=== PATIENT | male | born 1940 | race Caucasian/White ===

== ENCOUNTER 2021-07-18 12:34 | Inpatient (IN) ==
[2021-07-18] MEDS ORDERED: SODIUM CHLORIDE 0.9% 1000ML 1,000 ML IV SCH ×2 (12:49→16:25)
--- NOTE | 2021-07-18 13:06 | XRay Report ---
SINGLE VIEW CHEST CLINICAL HISTORY: Cardiac arrest. Intubation. FINDINGS: An AP, portable, supine chest radiograph is obtained. No prior studies are available for co mparison at the time of dictation. The examination is degraded by portable technique and patient rota tion. A cardiac pad projects over the right upper chest. A left subclavian central venous catheter grover s been placed. The tip projects over the cavoatrial junction. An endotracheal tube has been placed. T he tip projects approximately 3 cm above the carson. The heart is enlarged noting atherosclerotic ashlyn cification of the thoracic aorta. The pulmonary vasculature is noncongested. Coronary artery stents a re suggested.. There is mild bibasilar atelectasis. No airspace consolidation or large pleural effusi on is identified. No pneumothorax is seen. The skeletal structures are osteopenic. The bony thorax is grossly intact. IMPRESSION: 1. Line and tube placement as above. 2. No pneumothorax is seen post procedure. 3. Cardiomegaly without radiographic evidence of congestive failure. 4. No airspace consolidation or large pleural effusion is identified. ACT 112: Negative or not required by law. Electronically signed by: Ángel Bassett M.D. 07/18/2021 1:04 PM
[2021-07-18] MEDS: Standard 16mcg/mL; 4 MG in 250 mL for HYPOTENSION IV SCH ×6 (13:15→23:51)
[2021-07-18 13:19] LABS: Hematocrit (blood only) 42.2 % (42-52); Hemoglobin 13.3 g/dL (14.0-18.0); Mean Corpuscular Hemoglobin 31.3 pg (25-34); Mean Corpuscular Hgb Conc 31.5 g/dL (32-36); Mean Corpuscular Volume 99.3 fL (80-100); Mean Platelet Volume 10.4 fL (7.4-10.4); Platelet Count 183 K/uL (130-400); RDW Coefficient of Variation 15.9 % (11.5-14.5); RDW Standard Deviation 58.2 fL (36.4-46.3); Red Blood Count 4.25 M/uL (4.7-6.1); White Blood Count 12.09 K/uL (4.8-10.8)
--- NOTE | 2021-07-18 13:21 | Procedure Note ---
Procedure Note Date of Service July 18, 2021 Note Procedure date: Noted above Procedure: Central venous access Pre-procedure indication: Need for vasoactive medication administration Post-procedure Diagnosis: same as above Prior to Procedure: Informed Consent: CODE BLUE emergent consent implied Attending Staff: Fartun Caballero DO Resident/APC: Not applicable Skin Prep: Chlorhexidine Anesthesia: 4 mL 1% lidocaine without epinephrine The identity of the patient was confirmed and a bedside time out was performed. Description of Procedure: After sterile prep and sterile drape utilizing standard sterile technique the superficial skin of the left subclavian area was anesthetized. The target vessel was identified and entered with an 18-gauge needle. Dark venous blood return was noted. A guidewire was inserted through the needle and into the vessel. The needle was withdrawn and a skin mustapha was made. A tissue dilator was advanced via Seldinger technique and removed. A triple lumen catheter was inserted via Seldinger technique and the guidewire removed. All ports ty and flushed easily. A Biopatch was placed, and the catheter was secured via Commercial securement device. A sterile dressing was then applied. Complications: None Estimated blood loss: Trace Patient tolerated the procedure well. Coding CPT Codes Tubes, Drains, and Vasc Access - Tubes, Drains, and Vasc Access: [id number] Insertion Of Non-tunneled Catheter Age 6 Yrs> ([id number]) [facility] [place] Procedure Codes (Charges) Tubes, Drains, and Vasc Access Procedure 1: Tubes, Drains, and Vasc Access: [id number] Insertion Of Non-tunneled Catheter Age 6 Yrs>
--- NOTE | 2021-07-18 13:23 | Procedure Note ---
Procedure Note Date of Service July 18, 2021 Note Procedure date: Noted above Procedure: Femoral artery cannulation Pre-procedure Diagnosis: Need for invasive monitoring, hypotension/frequent blood draws Post-procedure Diagnosis: same as above Prior to Procedure: Informed Consent: RAJI CERVANTES emergent consent implied Attending Staff: Fartun Caballero DO Skin Prep: Chlorhexidine The identity of the patient was confirmed and a bedside time out was performed. Description of Procedure: After sterile prep and sterile drape utilizing standard sterile technique the superficial skin of the right femoral artery was anesthetized. The target artery was identified via dynamic ultrasound guidance and entered with a 20-gauge arrow Angiocath. Pulsatile bright red blood return was noted. Via modified Seldinger technique the self-contained guidewire was advanced and the Angiocath advanced over the guidewire. The guidewire was removed and brisk arterial blood return was noted. The pressure monitor was connected, and the arterial line was secured via silk suture. A sterile dressin g was then applied. Complications: None Estimated blood loss: Trace Patient tolerated the procedure well. Coding CPT Codes Tubes, Drains, and Vasc Access - Tubes, Drains, and Vasc Access: [id number] Place Catheter In Artery ([id number]) [facility] [place] Procedure Codes (Charges) Tubes, Drains, and Vasc Access Procedure 1: Tubes, Drains, and Vasc Access: [id number] Place Catheter In Artery
[2021-07-18 13:31] LABS: iSTAT Arterial Blood Gas HCO3 23 meg/L (19-24); iSTAT Arterial Blood Gas pCO2 54 mmHg (35-46); iSTAT Arterial Blood Gas pH 7.24 (7.35-7.45); iSTAT Arterial Blood Gas pO2 80 mmHg (80-95); iSTAT Carbon Dioxide 24 mmol/L (24-31)
--- NOTE | 2021-07-18 13:34 | Critical Care Consultation ---
Date of Consultation July 18, 2021 Assessment & Plan (1) Cardiac arrest: Reason Critically Ill: 80-year-old male with significant past medical history for coronary artery disease on antiplatelet and Plavix medication who presents after cardiac arrest and fall PLAN: Neuro: Patient unresponsive will strongly consider therapeutic hypothermia -Therapeutic hypothermia to proceed as no major bleeding seen on CT scan Maintain cervical collar until CT scan Resp: Respiratory failure - Already decreased FiO2 to 30% minimize hyperoxia Anterior rib fractures -No pneumothorax seen Bilateral pleural effusions -Likely reactionary to rib fractures secondary to CPR CV: Coronary artery disease Cardiac arrest - Interventional cardiology aware plan to take to cardiac Golf Cart Mechanic Fluids/Renal: Acute respiratory acidosis - Follow BMP ID: Afebrile - No indication for antibiotics at this time GI/Nutrition: Place OG tube - Consider trickle tube feeds Heme: Probable baseline anemia DVT prophylaxis: We will consider DVT prophylaxis after CT scan and cardiac Golf Cart Mechanic Endocrine: ICU hyperglycemia protocol Musculoskeletal: C2 fracture type III -Orthopedic spine consult -Spine precautions -Cervical collar at all times Vascular access: Left subclavian CVL, right femoral arterial line Code Status: Full Disposition: Critical Care Unit (2) CAD (coronary artery disease): (3) Facial laceration: (4) Fall (on) (from) other stairs and steps, initial encounter: (5) Closed fracture of C2 vertebra: (6) Ribs, multiple fractures: Supervising Physician Co-Signing Physician Notes I have personally spent 90 minutes of critical care time in the direct management of this patient. This is a life/limb threatening event. This includes time spent evaluating patient, direct bedside care, chart review, placing orders, interpretation of diagnostic studies, discussion with consultants, patient, and/or family members regarding treatment decisions, as well as other required patient management activities. This time is exclusive of all separately billable procedures, and teaching time and separate from and in addition to any other critical care service time. History of Present Illness Reason for Consultation: CODE BLUE cardiac arrest Requesting Physician: Alexia MERLOS History of Present Illness Patient is a 80-year-old male history is obtained from EMS. Patient was walking downstairs when his heard a fall. EMS was contacted found him at the bottom of the steps he was found to be in asystole given 4 rounds of epinephrine and approximately 30 minutes of CPR. He had return of spontaneous circulation and has been bradycardic since that time. In the emergency department he had loss of pulse/PEA was given 1 mg epinephrine and approximately 2 minutes worth of CPR and had return of spontaneous circulation was started on epinephrine infusion. EKG was obtained concerns for active cardiac ischemia/posterior wall [place] bedside limited ultrasound demonstrated poor contractility of both ventricles per my interpretation. Central venous access was obtained and a femoral arterial line for invasive monitoring was also obtained. Patient was placed in a cervical collar and sent for noncontrast CT of the head and neck. Review of Systems Review of Systems: Unobtainable due to endotracheal tube Physical Exam Physical Exam: General: Alert. nontoxic. GCS 3 T Skin: Warm, dry, supraorbital laceration Head: Atraumatic laceration to right supraorbital area dried blood over scalp Ears, nose, mouth and throat: airway patent obscured by endotracheal tube Cardiovascular: Normal peripheral perfusion bradycardic Rhythm Respiratory: no respiratory distress ventilator settings reviewed quickly dropped to 30% FiO2 Gastrointestinal: Non distended Musculoskeletal: No deformity Results & Data Results & Data ([facility]) Diagnostic Findings I reviewed the chest x-ray, no pneumothorax CVL appears to be in adequate position endotracheal tube 1 cm above the carson ECG Additional Comments: Cardiac arrest, sinus bradycardia concern for posterior wall [place] Coding Level of Care Code Critical Care ea addt'l 30 min Diagnoses Cardiac arrest I46.9 CAD (coronary artery disease) I25.10 Facial laceration S01.81XA Fall (on) (from) other stairs and steps, initial encounter W10.8XXA Closed fracture of C2 vertebra S12.100A Ribs, multiple fractures S22.49XA
[2021-07-18 13:44] LABS: Echinocytes 1+
[2021-07-18 13:46] LABS: ANC (manual) 6.65 K/uL (1.4-6.5); Monocytes # (manual) 0.12 K/uL (0.11-0.59); Myelocytes # (manual) 0.12 K/uL (0-0); Neutrophils # (manual) 6.65 K/uL (1.4-6.5)
[2021-07-18 13:47] LABS: Troponin I 0.03 ng/ml (0-0.04)
--- NOTE | 2021-07-18 13:49 | CT Scan Report ---
CT SCAN OF THE BRAIN WITHOUT IV CONTRAST CLINICAL HISTORY: Head injury. Trauma. COMPARISON STUDY: No priors. TECHNIQUE: Unenhanced axial CT scan of the brain is performed from the vertex to the skull base. A do se lowering technique was utilized adhering to the principles of ALARA. FINDINGS: An endotracheal tube is noted on the deputy sheriff/investigator tomogram. Brain parenchyma: There is age-related change noting minimal microangiopathic disease. There is no h emorrhage, mass effect, or evidence of acute territorial ischemia by CT criteria. Mi-white matter d ifferentiation is preserved. No extra-axial fluid collection is seen. Ventricles, sulci, cisterns: Prominent secondary to involutional change. Intracranial vasculature: There is atherosclerotic calcification of the cavernous carotid interverteb ral arteries. Calvarium: No depressed calvarial fracture is identified. Soft tissues: There is a frontal scalp hematoma/laceration. Sinuses and mastoids: There is trace mucosal thickening within the maxillary antra and the frontal si nuses. Moderate mucosal thickening is noted within the ethmoid sinuses. Air-fluid levels seen within the posterior ethmoid sinuses and the sphenoid sinuses. The mastoid air cells are well pneumatized. Orbits: The bony orbits are grossly intact. IMPRESSION: 1. There is no hemorrhage, mass effect, or evidence of acute territorial ischemia by CT criteria. 2. Right frontal scalp hematoma. 3. Paranasal sinus disease as above. ACT 112: Negative or not required by law. Electronically signed by: Ángel Bassett M.D. 07/18/2021 1:48 PM
--- NOTE | 2021-07-18 14:01 | History & Physical Report ---
Date of Service July 18, 2021 Assessment & Plan (1) Cardiac arrest: Plan: Patient had a fall from the stairs at home and found unresponsive. S/P 2 rounds of EPI on the field, approximately 30 minutes of CPR. SS/P ROSC, however required another dose of epinephrine. As no response, hypothermia started. On mechanical ventilation, and going for a cardiac cath D/W animal stunner (2) Closed fracture of C2 vertebra: Plan: noticed on imaging. maintain on cervical collar (3) CAD (coronary artery disease): Plan: going to lab[facility] [place]. Dr. Estevez is aware (4) Ribs, multiple fractures: Plan: secondary to fall (5) Facial laceration: Plan: treated in ED. History of Present Illness Chief Complaint: fall Primary Care Provider: KIRA PCP 80 yo male is intubated after sustainging a fall from stair case. heard the fall and found patient to have no pulse, called for help and began CPR with the help of the neighbor. Once EMS arrived, patient remained in asystole, and CPR was continued and patient required 2 rounds of epinephrine. Patient was then found to have PEA, and then had a return of spontaneous circulation. When patient arrived to the ED, patient was bradycardic and then loss his pulse. Reuired CPR and another dose of EP. Patient remained unresponsive, without sedation. Consulted Metalworking Specialist, Head CT, and consulted cardio for Dr. Estevez. Allergies Allergy/AdvReac Type Severity Reaction Status Date / Time No Known Allergies Allergy Unverified 07/18/21 16:14 Home Medications Medication Instructions Recorded Confirmed Type aspirin 07/18/21 History clopidogrel 75 mg tablet (Plavix) 75 mg 07/18/21 History Past Med/Surg History Medical History CAD (coronary artery disease) Surgical History Stented coronary artery Social History Smoking Status: Never smoker Hx Alcohol Use: No Hx Substance Use: No Preferred Language: Occitan Communication Ability: Unable Hearing Ability: Use of Hearing Aid Child Development Professor Required: No Beliefs That Will Affect Care: None marital status: Current Living Situation: Spouse current occupational status: retired Feels Safe at Home: Yes Assistive Devices: Hearing Aid - Left and Hearing Aid - Right Review of Systems Review of Systems: Unobtainable due to cognitive status Physical Exam Constitutional: nonresponsive, intubated. Eyes: right supraorbital laceration ENMT: external ear and nose normal, oropharynx normal Neck: trachea midline, no thyromegaly Respiratory: normal respiratory effort, lungs clear to auscultation Cardiovascular: RRR, no murmur, no edema Gastrointestinal (Abdomen): normal bowel sounds, soft, nontender, no hepat osplenomegaly Neurologic: PERRL, EOMI, accommodation nl, no face palsy, no dysarthria Psychiatric: sedated Results & Data Results & Data ([facility]) Vital Signs (Past 12 Hours) Vital Signs Pulse Resp Pulse Ox 07/18/21 12:58 47 L 18 98 PG Care Time/CCT Total # of Minutes Spent Total Time Spent with Patient: Total time spent is greater than 50% in coordination of care (as documented) at patient's floor/unit and/or counseling patient: Coding Level of Care Code 12416 Initial Inpt Care Lvl 3 Diagnoses Cardiac arrest I46.9 Closed fracture of C2 vertebra S12.100A CAD (coronary artery disease) I25.10 Ribs, multiple fractures S22.49XA Facial laceration S01.81XA
[2021-07-18] MEDS ORDERED: fentaNYL citrate 100 MCG/2 ML VIAL ONE (14:07)
[2021-07-18] MEDS ORDERED: niCARdipine HCL INJ 2.5 MG/ML 10 ML AMP ONE (14:07)
[2021-07-18] MEDS ORDERED: HEPARIN (PORCINE) 1000 UNIT/ML 10 ML (CATH LAB USE ONLY) ONE (14:07)
--- NOTE | 2021-07-18 14:07 | CT Scan Report ---
CT SCAN OF THE CERVICAL SPINE CLINICAL HISTORY: Trauma COMPARISON STUDY: No priors. TECHNIQUE: CT scan of the cervical spine is performed from the skull base to the upper thoracic spine . Images are reviewed in the axial, sagittal, and coronal planes. IV contrast was not administered fo r this examination. A dose lowering technique was utilized adhering to the principles of ALARA. CT DOSE: 1243.10 mGy.cm FINDINGS: Skeletal structures: The skeletal structures are osteopenic. There is a nondisplaced type III fractur e through the base of the odontoid process. This involves the anterior cortex at the base of the odon toid and extends obliquely to the posterior cortex of the mid vertebral body. No additional fracture is seen involving the cervical spine. There is no subluxation. Vertebral body height and alignment ar e maintained. Small anterior osteophytes are seen throughout. C1 is intact. The atlantoaxial articula tion is preserved noting productive degenerative change. The spinous processes appear intact. There i s moderate multilevel cervical spondylosis. Uncovertebral and facet arthropathy contribute to neural foraminal stenosis at several levels. Intervertebral discs: There is mild multilevel degenerative disc space narrowing, greatest at C3-C4. Central canal: Grossly patent. Soft tissues: The prevertebral and paraspinous soft tissues are within normal limits. There is athero sclerotic calcification of the carotid bulbs. The saphenous catheter is noted at the left thoracic in let. The thyroid gland is enlarged and heterogeneous. Layering fluid is noted in the pharynx. Calvarium: The visualized calvarium at the skull base appears intact. Brain parenchyma: Partially visualized brain parenchyma at the skull base is within normal limits. Sinuses and mastoids: There is fluid within the maxillary and sphenoid sinuses. The mastoid air cells are well pneumatized. Lung apices: An endotracheal tube is in place. No apical pneumothorax is identified. Upper lobe lung parenchyma is clear as imaged. IMPRESSION: 1. There is a nondisplaced type III fracture through the base of the odontoid process as detailed abo ve. 2. No additional fracture is seen involving the cervical spine. There is no subluxation. 3. Osteopenia and spondylotic change as above. Findings were communicated to Dr. Caballero at the time of interpretation. ACT 112: Negative or not required by law. Electronically signed by: Ángel Bassett M.D. 07/18/2021 2:06 PM
[2021-07-18] MEDS ORDERED: NITROGLYCERIN/D5W 100MCG/ML 20ML SYR ONE (14:08)
[2021-07-18] MEDS ORDERED: MIDAZOLAM HCL 1 MG/ML 2ML VIAL ONE (14:08)
--- NOTE | 2021-07-18 14:14 | CT Scan Report ---
CT SCAN OF THE FACIAL BONES WITHOUT IV CONTRAST CLINICAL HISTORY: Trauma. COMPARISON STUDY: CT scans of the brain and cervical spine performed concurrently on 07/18/2021. TECHNIQUE: High-resolution CT scan of the facial bones is performed. Images are reviewed in the axia l, sagittal, and coronal planes. IV contrast was not administered for this examination. A dose lower ing technique was utilized adhering to the principles of ALARA. CT DOSE: 2031.87 mGy.cm FINDINGS: The skeletal structures are osteopenic. There is no evidence of facial bone fracture. The b tano orbits are intact and the orbital contents are within normal limits. The zygomatic arches, nasal bones, and pterygoid plates are preserved. The maxilla and mandible are intact. The temporomandibular joints are maintained. There is hyperostosis of the maxilla and mandible. There are large periapical lucencies involving a left maxillary incisor and a left maxillary molar. There is a small periapical lucency involving the left mandibular canine. There are no layering blood products within the parana ismael sinuses. There is trace mucosal thickening and trace fluid within the maxillary antra. Small air- fluid levels are also seen within the posterior ethmoid sinuses and the sphenoid sinuses. There is mo derate mucosal thickening throughout the ethmoid sinuses, and trace mucosal thickening in the frontal sinuses. A 12 mm osteoma is noted in the right frontal sinus. The visualized calvarium appears intac t. There is a nondisplaced type III fracture through the base of the odontoid process. Partially imag ed brain parenchyma is within normal limits. An endotracheal tube is in place. There is a large right frontal scalp hematoma/laceration. Layering fluid is noted throughout the pharynx. IMPRESSION: 1. There is no evidence of facial bone fracture. 2. There is a nondisplaced type III fracture through the base of the odontoid process. 4. Right frontal scalp hematoma. ACT 112: Negative or not required by law. Electronically signed by: Ángel Bassett M.D. 07/18/2021 2:12 PM
[2021-07-18 14:22] LABS: Alanine Aminotransferase 250 U/L (7-52); Albumin Globulin Ratio 1.2 (0.9-2); Albumin Level 3.2 gm/dl (3.4-5.0); Alkaline Phosphatase 60 U/L (34-104); Anion Gap 18 (3-11); Aspartate Aminotransferase 218 U/L (13-39); BUN Creatinine Ratio 17.3 (10-20); Bilirubin,Total 0.5 mg/dl (0.2-1.0); Blood Urea Nitrogen 30 mg/dl (6-23); Carbon Dioxide 23 mmol/L (21-32); Chloride 102 mmol/L (98-107); Est GFR (African American) 42.6 ml/min; Est GFR (Non-African American) 36.7 ml/min; Globulin 2.6 gm/dl (2.5-4.0); Glucose 401 mg/dl (70-99(Fasting)); Potassium 3.4 mmol/L (3.5-5.1); Sodium 143 mmol/L (136-145); Total Protein 5.8 gm/dl (6.0-8.3)
--- NOTE | 2021-07-18 14:33 | CT Scan Report ---
CT SCAN OF THE CHEST, ABDOMEN, AND PELVIS WITHOUT IV CONTRAST CLINICAL HISTORY: Trauma. COMPARISON STUDY: Chest x-ray dated 07/18/2021. TECHNIQUE: Unenhanced CT scan of the chest, abdomen, and pelvis was performed from the thoracic inlet to the proximal femora. Images are reviewed in the axial, sagittal, and coronal planes. IV contrast was not administered for this examination. Note that the examination is suboptimal without IV contras t in the setting of trauma. The Examination is also degraded by motion artifact, and by streak artifa ct from the arms which could not be elevated above the chest or abdomen. A dose lowering technique wa s utilized adhering to the principles of ALARA. FINDINGS: CHEST: Thyroid: The thyroid gland is enlarged and heterogeneous. Thoracic aorta: There is atherosclerotic calcification of the thoracic aorta, which is normal in eulalia marcello and demonstrates standard 3-vessel arch anatomy. Heart: A left subclavian central venous catheter is in place. The heart is enlarged and without peric ardial effusion. The coronary arteries are densely calcified. The main pulmonary arteries are mildly dilated suggesting pulmonary artery hypertension. Lungs and pleural spaces: An endotracheal tube terminates above the carson. Evaluation of the lung pa renchyma is degraded by motion artifact. There are trace pleural effusions with dependent consolidati on. Minimal secretions are noted in the right mainstem bronchus. Minimal patchy groundglass opacities are seen in the right upper lobe (axial image #66). Mediastinum: There is no mediastinal hematoma or lymphadenopathy. Jacklyn: Not well assessed without IV contrast. Axillae: There is no axillary lymphadenopathy. Bony thorax: The skeletal structures are osteopenic. There are acute right anterior 3rd through 6th r ib fractures. The 4th rib fracture is mildly displaced. There are acute nondisplaced left anterior 3r d through 7th rib fractures. Degenerative change and hyperkyphosis is noted in the thoracic spine. No lytic or blastic lesions are identified. ABDOMEN AND PELVIS: Liver: The unenhanced liver is normal in size, contour, and attenuation. There is no intra- or extrah epatic biliary ductal dilatation. Gallbladder: Unremarkable. Spleen: Normal in size and attenuation. Pancreas: Unremarkable. Adrenal glands: Unremarkable. Kidneys: The unenhanced kidneys demonstrate cortical atrophy and are without hydronephrosis. There ar e numerous (at least 10) punctate nonobstructing left renal calculi. Tiny punctate calculi are also n oted in the left kidney. Abdominal vasculature: The abdominal aorta is normal in course and caliber noting advanced atheroscle rotic calcification. Bowel: Moderate fecal retention is seen throughout the colon. No high-grade bowel obstruction is iden tified. There are numerous fluid-filled loops of small bowel which may represent ileus. The appendix is not visualized. Peritoneum: There is no intraperitoneal free air or abdominal ascites. There is a large fat-containin g umbilical hernia. Lymphadenopathy: None. Pelvic viscera: The prostate gland is enlarged and heterogeneous. The bladder wall appears thickened and trabeculated indicating chronic outlet obstruction. A large left inguinal hernia contains a nonob structed segment of the sigmoid colon. Skeletal structures: The skeletal structures are osteopenic. The lumbosacral spine, bony pelvis, and proximal femora appear intact. No lytic or blastic lesions are seen. IMPRESSION: 1. Suboptimal examination without IV contrast. There is also streak and motion artifact. 2. There are numerous acute bilateral anterior rib fractures. 3. No additional fracture is identified. 4. No pneumothorax is seen. 5. There are trace pleural effusions with dependent consolidation. This likely represents atelectasis and clinical correlation will be required. 6. There are faint groundglass opacities in the right upper lobe. This could represent a mild pneumon itis, aspiration, or less likely a tiny contusion. 7. Cardiomegaly. 8. There is no evidence of solid organ injury in the abdomen or pelvis on this unenhanced examination . 9. There is a large left inguinal hernia which contains a nonobstructed segment of the sigmoid colon. 10. There are numerous tiny bilateral nonobstructing renal calculi. 11. The small bowel loops are mildly distended and fluid-filled, likely representing ileus. There is no transition point or evidence of high-grade obstruction. 12. Additional findings as above. ACT 112: Negative or not required by law. Electronically signed by: Ángel Bassett M.D. 07/18/2021 2:31 PM
[2021-07-18] MEDS ORDERED: EPINEPHrine INJ 1 MG/ML AMP ONE ×4 (14:38→15:12)
[2021-07-18 15:17] LABS: INR 1.1 (0.9-1.1); Partial Thromboplastin Ratio 0.9; Partial Thromboplastin Time 22.5 Seconds (21.0-31.0); Prothrombin Time 11.3 Seconds (9.0-12.0)
--- NOTE | 2021-07-18 15:50 | Cardiology Consultation ---
Date of Consultation July 18, 2021 Assessment & Plan (1) Cardiac arrest: Patient here after out of hospital cardiac arrest, PEA now with ROSC post prolonged resuscitation. Initial ECG with subtle ST elevation in 1, aVL and deep inferior lateral ST depressions. We will proceed with cardiac catheterization to evaluate for acute disease potentially triggering presenting event or impacting current cardiac function. Plan is for targeted temperature management and will place cooling catheter. With prolonged bradycardia, asystole we will also place temporary pacer. Discussed risks, benefits, alternatives of procedure with patient's family and they are agreeable with proceeding. Further recommendations pending findings of coronary angiography. History of Present Illness History of Present Illness 80-year-old man here with after out of hospital arrest. Patient seen urgently after stabilized in the ED. Patient reportedly with long history of coronary artery disease and with reportedly 7 prior stents. Last maybe 5 years ago at [facility]. Reportedly has borderline diabetes as well. Per has been usual state of health this afternoon when she heard him walking on the steps and sometime later noted he had fallen and was unresponsive. CPR began by , neighbor until EMS where noted to be in asystole. Had ROSC after 30 minutes of CPR, 4 rounds of epi. In the ED bradycardic to 50s before again had PEA arrest and given additional 1 of epi, 2 minutes of CPR before ROSC. Initial ECG showed junctional bradycardia with subtle lateral ST elevations in [address] depressions inferiorly and across precordium. Initial troponin 0.03. At time of my evaluation patient in sinus rhythm with heart rates in the 70s on 0.[address] scan from head to pelvis notable for no intracranial hemorrhage but C2 spine fracture. Patient History Social History Smoking Status: Unknown if ever smoked Preferred Language: [place] Feels Safe at Home: Yes Review of Systems Review of Systems: Unobtainable due to endotracheal tube and Unobtainable due to reduced consciousness Physical Exam Physical Exam: General: Intubated, unresponsive HEENT: Sclerae anicteric, pupils fixed Lungs: Clear anteriorly Cardiac: Regular rate and rhythm, no murmurs. Vascular: 2+ radial Abdomen: Soft Extremities: No edema Neuro: Unresponsive to painful stimuli Results & Data ([facility]) Vital Signs (Past 12 Hours) Vital Signs Pulse Resp BP Pulse Ox 07/18/21 14:25 73 24 93 07/18/21 14:20 72 24 92 07/18/21 14:15 75 24 115/52 L 92 07/18/21 14:10 78 24 119/56 L 93 07/18/21 14:05 80 24 121/60 93 07/18/21 14:00 83 24 124/61 93 07/18/21 13:55 86 24 130/60 93 07/18/21 13:50 87 24 128/60 93 07/18/21 13:49 88 24 93 07/18/21 13:41 88 24 93 07/18/21 13:25 24 07/18/21 13:20 96 H 24 110/54 L 93 07/18/21 13:15 93 H 23 102/48 L 94 07/18/21 13:10 99 H 25 H 117/54 L 95 07/18/21 13:05 74 19 96/43 L 96 07/18/21 13:02 61 20 63/34 L 100 07/18/21 13:00 61 18 65/36 L 96 07/18/21 12:59 60 18 66/37 L 96 07/18/21 12:58 47 L 18 98 07/18/21 12:55 86 18 07/18/21 12:50 101 H 0 L 167/88 H 98 07/18/21 12:45 48 L 18 07/18/21 12:40 51 L 18 PG Care Time/CCT Total # of Minutes Spent Total Time Spent with Patient: Total time spent is greater than 50% in coordination of care (as documented) at patient's floor/unit and/or counseling patient: Coding Level of Care Code 48277 Initial Inpt Care Lvl 3 Diagnoses Cardiac arrest I46.9
--- NOTE | 2021-07-18 15:52 | Emergency Department Note ---
Impression & Plan Cardiac arrest, Closed fracture of C2 vertebra, Ribs, multiple fractures ED Provider Note CHIEF COMPLAINT: Cardiac arrest HISTORY OF PRESENT ILLNESS: This 80-year-old male patient presents to the emergency department after witnessed cardiac arrest. The patient was apparently cleaning some stairs when he fell. His heard a thud and came running. Patient was found to be unresponsive and she started "breaths." The veneer splicer was nearby and began chest compressions. 911 was called and when EMS arrived the patient was asystolic. IV access was established and the patient was medicated with epinephrine x2 and noted to be in a PEA. On the third epi the patient regained pulse and was transported to the hospital. CPR had been halted. Patient had a Yunior airway in place and did vomit prior to arrival. He has a known history of one coronary stent. states he is a patient of the [facility] system. He is on aspirin and Plavix but is not currently on any anticoagulant according to the . REVIEW OF SYSTEMS: A review of systems was performed with positives and pertinent negatives listed in the history of present illness. 10 systems were reviewed and are otherwise negative. ALLERGIES: see below MEDICATIONS: see below PMH: see below SOCIAL HISTORY: see below DDx: Cardiac ischemia, arrhythmia, aortic dissection, pulmonary embolism, electrolyte abnormality, intracranial event, cardiac tamponade, as well as other pathologies. PHYSICAL EXAM: Vital signs reviewed. General: Critically ill appearing 80-year-old male, Yunior airway in place HEENT: Dry conjunctiva, no pupillary response. Dry mucous membranes. 7 cm laceration to the right forehead with hematoma. Abrasion/laceration superficially to the right worship Cardiovascular: Distant heart tones but regular, bradycardic. Pulses palpated femoral and carotid Pulmonary: Clear to auscultation bilaterally, normal work of breathing. Abdomen: Soft, nontender, nondistended, positive bowel sounds. Musculoskeletal: Contusion noted to the forehead as above, extremities atraumatic Neurologic: Patient unresponsive to verbal and painful stimuli. Skin: Warm, dry, no rash EMERGENCY DEPARTMENT COURSE/MDM: This patient was evaluated and appeared to be in critical condition. Patient arrived with pulses regained but did lose a strong pulse and became bradycardic to 35 shortly after arrival. The patient was given 1 amp of epinephrine with great response. He became tachycardic and pulses were palpated once again. Patient's Yunior airway was replaced with an ET tube. Please see my procedure note below. The welding teacher Dr. Caballero did arrive at the bedside. The patient was placed on an epinephrine drip shortly after he required the bolus in the emergency department. He was given 2 amps of bicarb per Dr. Caballero. He was able to place a left subclavian triple-lumen as well as an arterial line in the right femoral artery. CT imaging of the head, neck, facial bones, chest, abdomen and pelvis were performed and are significant for no head bleed but forehead contusion, C2 odontoid fracture, multiple anterior rib fractures. Family was brought to the bedside and the findings were discussed. We discussed difficulty and prognosis at this time and that interventional cardiology was consulted for cardiac catheterization. Patient's forehead laceration was approximated by myself, please see the procedure note. Patient was admitted to the ICU under Dr. Culp. Patient's expressed u nderstanding of the plan and agreed. MONITORING: An order for cardiac monitoring was placed and the patient is noted to be in a sinus bradycardia at 48 beats per minute. RADIOLOGY: See below EKG: Sinus bradycardia at 51 bpm with right bundle branch block, diffuse ST/T wave abnormality in the inferior, anterior and lateral leads. No PVC, no PAC. QTC is 420. No previous for comparison. PROCEDURE: Endotracheal Intubation Indication cardiac arrest The patient was on 100% oxygen via NRB prior to the procedure. Suction, airway equipment, RSI drugs, respiratory equipment, and appropriate personnel were prepared prior to the initiation of the procedure. The airway was visualized utilizing the glide scope after suctioning of the airway and removal of the EMS placed a Yunior airway. A 7.5 size ETT tube was placed atraumatically to 25 cm at the lips. Lung sounds were auscultated bilaterally and there was good color change with the CO2 detector. Chest x-ray was performed to verify placement. Patient was placed on the ventilator with respiratory therapy at the bedside. Patient is unresponsive and not requiring sedation at this time. There were no complications. Location: forehead Total length: 7 cm Complexity: simple Verbal consent was obtained from after the risks and benefits were explained, including but not limited to bleeding, scarring, infection, pain, and bone/joint/nerve damage. At this time, the risks of the procedure are less than the risks of NOT performing the procedure. Copious irrigation was performed using saline. The skin was re-prepped with betadine and a sterile field set. The wound was explored for foreign bodies and none found. Examination revealed no injury to deep structures such as tendons, bone, or significant blood vessels. Debridement was not performed. The wound edges were approximated using 2 deep interrupted, 5-0 simple interrupted Vicryl sutures and 7 running 6-0 Ethilon sutures. Hemostasis and excellent approximation was achieved. Antibacterial ointment and a sterile dressing was applied. Dermabond was applied to some macerated and oozing tissue more distally. Patient remained unresponsive throughout. DISPOSITION: ICU admission I have personally spent greater than 60 minutes of critical care time in the direct management of this patient. This includes bedside care, interpretation of diagnostic studies, and testing, discussion with consultants, patient, and family members, and other required patient management activities. This 60 minutes is in excess of all separately billable procedures. Past Med/Surg History Medical History (Updated 07/18/21 @ 16:13 by Gayle Hale MD) CAD (coronary artery disease) Surgical History (Updated 07/18/21 @ 16:13 by Gayle Hale MD) Stented coronary artery Social History (Updated 07/18/21 @ 16:14 by Gayle Hale MD) Smoking Status: Unknown if ever smoked Preferred Language: [place] Hearing Ability: Use of Hearing Aid Beliefs That Will Affect Care: Islam marital status: Current Living Situation: Spouse current occupational status: retired Feels Safe at Home: Yes Allergies Allergies Allergy/AdvReac Type Severity Reaction Status Date / Time No Known Allergies Allergy Unverified 07/18/21 16:14 Results & Data (ED) Vital Signs Vital Signs - 24 hr 07/18/21 12:34 07/18/21 12:40 07/18/21 12:45 Pulse Rate 52 L 51 L 48 L Pulse Rate from SpO2 Sensor Respiratory Rate 17 18 18 Respiratory Effort / Characteristics Labored Blood Pressure Blood Pressure Mean Pulse Oximetry 99 Oxygen Delivery Method Mechanical Vent Fraction of Inspired Oxygen 100 Sepsis Recent Fever Within 48 Hours No Sepsis New/Unexplained Change in Mental Status No Sepsis Action Taken by Nursing No Action Required Arterial BP Systolic Arterial BP Diastolic Arterial BP Mean Arterial Pulse Rate End-Tidal CO2 31 Fraction of Inspired Oxygen - Titration 30 Pulse Oximetry Post Tiitration 94 07/18/21 12:50 07/18/21 12:55 07/18/21 12:58 Pulse Rate 101 H 86 47 L Pulse Rate from SpO2 Sensor 102 H Respiratory Rate 0 L 18 18 Respiratory Effort / Characteristics Blood Pressure 167/88 H Blood Pressure Mean 114 Pulse Oximetry 98 98 Oxygen Delivery Method Fraction of Inspired Oxygen 100 Sepsis Recent Fever Within 48 Hours Sepsis New/Unexplained Change in Mental Status Sepsis Action Taken by Nursing Arterial BP Systolic Arterial BP Diastolic Arterial BP Mean Arterial Pulse Rate End-Tidal CO2 50 Fraction of Inspired Oxygen - Titration Pulse Oximetry Post Tiitration 07/18/21 12:59 07/18/21 13:00 07/18/21 13:02 Pulse Rate 60 61 61 Pulse Rate from SpO2 Sensor 60 61 61 Respiratory Rate 18 18 20 Respiratory Effort / Characteristics Blood Pressure 66/37 L 65/36 L 63/34 L Blood Pressure Mean 46 45 43 Pulse Oximetry 96 96 100 Oxygen Delivery Method Fraction of Inspired Oxygen Sepsis Recent Fever Within 48 Hours Sepsis New/Unexplained Change in Mental Status Sepsis Action Taken by Nursing Arterial BP Systolic Arterial BP Diastolic Arterial BP Mean Arterial Pulse Rate End-Tidal CO2 43 43 40 Fraction of Inspired Oxygen - Titration Pulse Oximetry Post Tiitration 07/18/21 13:05 07/18/21 13:10 07/18/21 13:15 Pulse Rate 74 99 H 93 H Pulse Rate from SpO2 Sensor 74 100 H 93 H Respiratory Rate 19 25 H 23 Respiratory Effort / Characteristics Blood Pressure 96/43 L 117/54 L 102/48 L Blood Pressure Mean 60 75 66 Pulse Oximetry 96 95 94 Oxygen Delivery Method Fraction of Inspired Oxygen 30 Sepsis Recent Fever Within 48 Hours Sepsis New/Unexplained Change in Mental Status Sepsis Action Taken by Nursing Arterial BP Systolic Arterial BP Diastolic Arterial BP Mean Arterial Pulse Rate End-Tidal CO2 46 39 36 Fraction of Inspired Oxygen - Titration Pulse Oximetry Post Tiitration 07/18/21 13:20 07/18/21 13:25 07/18/21 13:41 Pulse Rate 96 H 88 Pulse Rate from SpO2 Sensor 96 H 88 Respiratory Rate 24 24 24 Respiratory Effort / Characteristics Blood Pressure 110/54 L Blood Pressure Mean 72 Pulse Oximetry 93 93 Oxygen Delivery Method Fraction of Inspired Oxygen Sepsis Recent Fever Within 48 Hours Sepsis New/Unexplained Change in Mental Status Sepsis Action Taken by Nursing Arterial BP Systolic 118 119 Arterial BP Diastolic 52 53 Arterial BP Mean Arterial Pulse Rate End-Tidal CO2 33 Fraction of Inspired Oxygen - Titration Pulse Oximetry Post Tiitration 07/18/21 13:49 07/18/21 13:50 07/18/21 13:55 Pulse Rate 88 87 86 Pulse Rate from SpO2 Sensor 88 86 86 Respiratory Rate 24 24 24 Respiratory Effort / Characteristics Blood Pressure 128/60 130/60 Blood Pressure Mean 82 83 Pulse Oximetry 93 93 93 Oxygen Delivery Method Fraction of Inspired Oxygen Sepsis Recent Fever Within 48 Hours Sepsis New/Unexplained Change in Mental Status Sepsis Action Taken by Nursing Arterial BP Systolic 130 127 126 Arterial BP Diastolic 53 52 53 Arterial BP Mean 76 74 74 Arterial Pulse Rate 88 87 86 End-Tidal CO2 31 31 31 Fraction of Inspired Oxygen - Titration Pulse Oximetry Post Tiitration 07/18/21 14:00 07/18/21 14:05 07/18/21 14:10 Pulse Rate 83 80 78 Pulse Rate from SpO2 Sensor 83 80 78 Respiratory Rate 24 24 24 Respiratory Effort / Characteristics Blood Pressure 124/61 121/60 119/56 L Blood Pressure Mean 82 80 77 Pulse Oximetry 93 93 93 Oxygen Delivery Method Fraction of Inspired Oxygen Sepsis Recent Fever Within 48 Hours Sepsis New/Unexplained Change in Mental Status Sepsis Action Taken by Nursing Arterial BP Systolic 122 122 120 Arterial BP Diastolic 49 49 48 Arterial BP Mean 71 70 69 Arterial Pulse Rate 83 79 78 End-Tidal CO2 32 34 40 Fraction of Inspired Oxygen - Titration Pulse Oximetry Post Tiitration 07/18/21 14:15 07/18/21 14:20 07/18/21 14:25 Pulse Rate 75 72 73 Pulse Rate from SpO2 Sensor 75 72 74 Respiratory Rate 24 24 24 Respiratory Effort / Characteristics Blood Pressure 115/52 L Blood Pressure Mean 73 Pulse Oximetry 92 92 93 Oxygen Delivery Method Fraction of Inspired Oxygen Sepsis Recent Fever Within 48 Hours Sepsis New/Unexplained Change in Mental Status Sepsis Action Taken by Nursing Arterial BP Systolic 117 115 115 Arterial BP Diastolic 47 46 47 Arterial BP Mean 67 66 67 Arterial Pulse Rate 74 71 74 End-Tidal CO2 49 39 29 Fraction of Inspired Oxygen - Titration Pulse Oximetry Post Tiitration 07/18/21 14:30 07/18/21 14:40 07/18/21 15:57 Pulse Rate 73 83 Pulse Rate from SpO2 Sensor Respiratory Rate 24 24 Respiratory Effort / Characteristics Blood Pressure Blood Pressure Mean Pulse Oximetry 93 94 Oxygen Delivery Method Fraction of Inspired Oxygen 30 100 30 Sepsis Recent Fever Within 48 Hours Sepsis New/Unexplained Change in Mental Status Sepsis Action Taken by Nursing Arterial BP Systolic Arterial BP Diastolic Arterial BP Mean Arterial Pulse Rate End-Tidal CO2 31 26 Fraction of Inspired Oxygen - Titration Pulse Oximetry Post Tiitration Home Medications Current Medication List: was personally reviewed by me Laboratory Data Attestation: I reviewed the patient's lab results. Result diagrams: 07/18/21 13:02 07/18/21 13:02 Lab Results 07/18/21 07/18/21 07/18/21 Range/Units 13:02 13:02 13:03 WBC 12.09 H (4.8-10.8) K/uL RBC 4.25 L (4.7-6.1) M/uL Hgb 13.3 L (14.0-18.0) g/dL Hct 42.2 (42-52) % MCV 99.3 (80-100) fL MCH 31.3 (25-34) pg MCHC 31.5 L (32-36) g/dL RDW Std Deviation 58.2 H (36.4-46.3) fL RDW Coeff of Talia 15.9 H (11.5-14.5) % Plt Count 183 (130-400) K/uL MPV 10.4 (7.4-10.4) fL Neutrophils % (Manual) 55.0 % Lymphocytes % (Manual) 43.0 % Monocytes % (Manual) 1.0 % Myelocytes % (Man) 1.0 % Other Cells % 0.0 % Neutrophils # (Manual) 6.65 H (1.4-6.5) K/uL Total Absolute Neuts 6.65 H (1.4-6.5) K/uL Lymphocytes # (Manual) 5.20 H (1.2-3.4) K/uL Total Abs Lymphocytes 5.20 H (1.2-3.4) K/uL Monocytes # (Manual) 0.12 (0.11-0.59) K/uL Myelocytes # (Manual) 0.12 H (0-0) K/uL Echinocytes 1+ PT (9.0-12.0) Seconds INR (0.9-1.1) APTT (21.0-31.0) Seconds PTT Ratio POC pH (7.35-7.45) POC pCO2 (35-46) mmHg POC pO2 (80-95) mmHg POC HCO3 (19-24) rosalina/L POC Total CO2 (24-31) mmol/L POC Base Excess (-9-1.8) rosalina/L POC ABG O2 Sat (90-95) % Sodium 143 (136-145) mmol/L Potassium 3.4 L (3.5-5.1) mmol/L Chloride 102 (98-107) mmol/L Carbon Dioxide 23 (21-32) mmol/L Anion Gap 18 H (3-11) BUN 30 H (6-23) mg/dl Creatinine 1.73 H (0.6-1.4) mg/dl Est Cr Clr Drug Dosing Not Reportable Est GFR ( Amer) 42.6 ml/min Est GFR (Non-Af Amer) 36.7 ml/min BUN/Creatinine Ratio 17.3 (10-20) Glucose 401 H* (70-99(Fasting)) mg/dl Calcium 9.0 (8.5-10.1) mg/dl Total Bilirubin 0.5 (0.2-1.0) mg/dl AST 218 H (13-39) U/L ALT 250 H (7-52) U/L Alkaline Phosphatase 60 (34-104) U/L Troponin I 0.03 (0-0.04) ng/ml Total Protein 5.8 L (6.0-8.3) gm/dl Albumin 3.2 L (3.4-5.0) gm/dl Globulin 2.6 (2.5-4.0) gm/dl Albumin/Globulin Ratio 1.2 (0.9-2) Blood Type A Positive Antibody Screen NEGATIVE 07/18/21 07/18/21 Range/Units 13:03 13:17 WBC (4.8-10.8) K/uL RBC (4.7-6.1) M/uL Hgb (14.0-18.0) g/dL Hct (42-52) % MCV (80-100) fL MCH (25-34) pg MCHC (32-36) g/dL RDW Std Deviation (36.4-46.3) fL RDW Coeff of Talia (11.5-14.5) % Plt Count (130-400) K/uL MPV (7.4-10.4) fL Neutrophils % (Manual) % Lymphocytes % (Manual) % Monocytes % (Manual) % Myelocytes % (Man) % Other Cells % % Neutrophils # (Manual) (1.4-6.5) K/uL Total Absolute Neuts (1.4-6.5) K/uL Lymphocytes # (Manual) (1.2-3.4) K/uL Total Abs Lymphocytes (1.2-3.4) K/uL Monocytes # (Manual) (0.11-0.59) K/uL Myelocytes # (Manual) (0-0) K/uL Echinocytes PT 11.3 (9.0-12.0) Seconds INR 1.1 (0.9-1.1) APTT 22.5 (21.0-31.0) Seconds PTT Ratio 0.9 POC pH 7.24 L (7.35-7.45) POC pCO2 54 H (35-46) mmHg POC pO2 80 (80-95) mmHg POC HCO3 23 (19-24) rosalina/L POC Total CO2 24 (24-31) mmol/L POC Base Excess -5.0 (-9-1.8) rosalina/L POC ABG O2 Sat 93.0 (90-95) % Sodium (136-145) mmol/L Potassium (3.5-5.1) mmol/L Chloride (98-107) mmol/L Carbon Dioxide (21-32) mmol/L Anion Gap (3-11) BUN (6-23) mg/dl Creatinine (0.6-1.4) mg/dl Est Cr Clr Drug Dosing Est GFR ( Amer) ml/min Est GFR (Non-Af Amer) ml/min BUN/Creatinine Ratio (10-20) Glucose (70-99(Fasting)) mg/dl Calcium (8.5-10.1) mg/dl Total Bilirubin (0.2-1.0) mg/dl AST (13-39) U/L ALT (7-52) U/L Alkaline Phosphatase (34-104) U/L Troponin I (0-0.04) ng/ml Total Protein (6.0-8.3) gm/dl Albumin (3.4-5.0) gm/dl Globulin (2.5-4.0) gm/dl Albumin/Globulin Ratio (0.9-2) Blood Type Antibody Screen Administered Medications Epinephrine HCl () 4 mg in 254 mls @ 102.87 mls/hr IV .Q2H29M [facility]; Protocol Stop: 08/17/21 13:14 Last Admin: 07/18/21 15:59 Dose: 0.4 mcg/kg/min, 137.2 mls/hr Documented by: [id number] Cosigned by: [id number] Titration: 07/18/21 15:09 Dose: 0.4 mcg/kg/min, 137.2 mls/hr Documented by: [id number] Cosigned by: [id number] Titration: 07/18/21 13:39 Dose: 0.4 mcg/kg/min, 137.2 mls/hr Documented by: [id number] Titration: 07/18/21 13:29 Dose: 0.3 mcg/kg/min, 102.9 mls/hr Documented by: [id number] Titration: 07/18/21 13:16 Dose: 0.4 mcg/kg/min, 137.2 mls/hr Documented by: [id number] Admin: 07/18/21 13:15 Dose: 0.3 mcg/kg/min, 102.9 mls/hr Documented by: [id number] Discontinued Medications Sodium Chloride (Nss 1000ml) 1,000 mls @ 999 mls/hr IV .Q1H1M MICHELLE Stop: 07/18/21 13:49 Last Infusion: 07/18/21 13:51 Dose: 0 mls/hr Documented by: [id number] Admin: 07/18/21 12:50 Dose: 999 mls/hr Documented by: [id number] Imaging Data Radiologist's Impression: Head CT 07/18/21 12:48 CT SCAN OF THE BRAIN WITHOUT IV CONTRAST CLINICAL HISTORY: Head injury. Trauma. COMPARISON STUDY: No priors. TECHNIQUE: Unenhanced axial CT scan of the brain is performed from the vertex to the skull base. A dose lowering technique was utilized adhering to the principles of ALARA. FINDINGS: An endotracheal tube is noted on the winch derrick operator tomogram. Brain parenchyma: There is age-related change noting minimal microangiopathic disease. There is no hemorrhage, mass effect, or evidence of acute territorial ischemia by CT criteria. Mi-white matter differentiation is preserved. No extra-axial fluid collection is seen. Ventricles, sulci, cisterns: Prominent secondary to involutional change. Intracranial vasculature: There is atherosclerotic calcification of the cavernous carotid intervertebral arteries. Calvarium: No depressed calvarial fracture is identified. Soft tissues: There is a frontal scalp hematoma/laceration. Sinuses and mastoids: There is trace mucosal thickening within the maxillary antra and the frontal sinuses. Moderate mucosal thickening is noted within the ethmoid sinuses. Air-fluid levels seen within the posterior ethmoid sinuses and the sphenoid sinuses. The mastoid air cells are well pneumatized. Orbits: The bony orbits are grossly intact. IMPRESSION: 1. There is no hemorrhage, mass effect, or evidence of acute territorial ischemia by CT criteria. 2. Right frontal scalp hematoma. 3. Paranasal sinus disease as above. ACT 112: Negative or not required by law. Electronically signed by: Ángel Bassett M.D. 07/18/2021 1:48 PM Chest X-Ray 07/18/21 12:49 SINGLE VIEW CHEST CLINICAL HISTORY: Cardiac arrest. Intubation. FINDINGS: An AP, portable, supine chest radiograph is obtained. No prior studies are available for comparison at the time of dictation. The examination is degraded by portable technique and patient rotation. A cardiac pad projects over the right upper chest. A left subclavian central venous catheter has been placed. The tip projects over the cavoatrial junction. An endotracheal tube has been placed. The tip projects approximately 3 cm above the carson. The heart is enlarged noting atherosclerotic calcification of the thoracic aorta. The pulmonary vasculature is noncongested. Coronary artery stents are suggested.. There is mild bibasilar atelectasis. No airspace consolidation or large pleural effusion is identified. No pneumothorax is seen. The skeletal structures are o steopenic. The bony thorax is grossly intact. IMPRESSION: 1. Line and tube placement as above. 2. No pneumothorax is seen post procedure. 3. Cardiomegaly without radiographic evidence of congestive failure. 4. No airspace consolidation or large pleural effusion is identified. ACT 112: Negative or not required by law. Electronically signed by: Ángel Bassett M.D. 07/18/2021 1:[address] 07/18/21 13:17 CT SCAN OF THE CERVICAL SPINE CLINICAL HISTORY: Trauma COMPARISON STUDY: No priors. TECHNIQUE: CT scan of the cervical spine is performed from the skull base to the upper thoracic spine. Images are reviewed in the axial, sagittal, and coronal planes. IV contrast was not administered for this examination. A dose lowering technique was utilized adhering to the principles of ALARA. CT DOSE: 1243.10 mGy.cm FINDINGS: Skeletal structures: The skeletal structures are osteopenic. There is a nondisplaced type III fracture through the base of the odontoid process. This involves the anterior cortex at the base of the odontoid and extends obliquely to the posterior cortex of the mid vertebral body. No additional fracture is s een involving the cervical spine. There is no subluxation. Vertebral body height and alignment are maintained. Small anterior osteophytes are seen throughout. C1 is intact. The atlantoaxial articulation is preserved noting productive degenerative change. The spinous processes appear intact. There is moderate multilevel cervical spondylosis. Uncovertebral and facet arthropathy contribute to neural foraminal stenosis at several levels. Intervertebral discs: There is mild multilevel degenerative disc space narrowing, greatest at C3-C4. Central canal: Grossly patent. Soft tissues: The prevertebral and paraspinous soft tissues are within normal limits. There is atherosclerotic calcification of the carotid bulbs. The s aphenous catheter is noted at the left thoracic inlet. The thyroid gland is enlarged and heterogeneous. Layering fluid is noted in the pharynx. Calvarium: The visualized calvarium at the skull base appears intact. Brain parenchyma: Partially visualized brain parenchyma at the skull base is within normal limits. Sinuses and mastoids: There is fluid within the maxillary and sphenoid sinuses. The mastoid air cells are well pneumatized. Lung apices: An endotracheal tube is in place. No apical pneumothorax is identified. Upper lobe lung parenchyma is clear as imaged. IMPRESSION: 1. There is a nondisplaced type III fracture through the base of the odontoid process as detailed above. 2. No additional fracture is seen involving the cervical spine. There is no subluxation. 3. Osteopenia and spondylotic change as above. Findings were communicated to Dr. Caballero at the time of interpretation. ACT 112: Negative or not required by law. Electronically signed by: Ángel Bassett M.D. 07/18/2021 2:[address] 07/18/21 13:32 CT SCAN OF THE FACIAL BONES WITHOUT IV CONTRAST CLINICAL HISTORY: Trauma. COMPARISON STUDY: CT scans of the brain and cervical spine performed concurrently on 07/18/2021. TECHNIQUE: High-resolution CT scan of the facial bones is performed. Images are reviewed in the axial, sagittal, and coronal planes. IV contrast was not administered for this examination. A dose lowering technique was utilized adhering to the principles of ALARA. CT DOSE: 2031.87 mGy.cm FINDINGS: The skeletal structures are osteopenic. There is no evidence of facial bone fracture. The bony orbits are intact and the orbital contents are within normal limits. The zygomatic arches, nasal bones, and pterygoid plates are p reserved. The maxilla and mandible are intact. The temporomandibular joints are maintained. There is hyperostosis of the maxilla and mandible. There are large periapical lucencies involving a left maxillary incisor and a left maxillary molar. There is a small periapical lucency involving the left mandibular canine. There are no layering blood products within the paranasal sinuses. There is trace mucosal thickening and trace fluid within the maxillary antra. Small air- fluid levels are also seen within the posterior ethmoid sinuses and the sphenoid sinuses. There is moderate mucosal thickening throughout the ethmoid sinuses, and trace mucosal thickening in the frontal sinuses. A 12 mm osteoma is noted in the right frontal sinus. The visualized calvarium appears intact. There is a nondisplaced type III fracture through the base of the odontoid process. Partially imaged brain parenchyma is within normal limits. An endotracheal tube is in place. There is a large right frontal scalp hematoma/laceration. Layering fluid is noted throughout the pharynx. IMPRESSION: 1. There is no evidence of facial bone fracture. 2. There is a nondisplaced type III fracture through the base of the odontoid process. 4. Right frontal scalp hematoma. ACT 112: Negative or not required by law. Electronically signed by: Ángel Bassett M.D. 07/18/2021 2:12 PM Abdomen/Pelvis CT 07/18/21 13:37 CT SCAN OF THE CHEST, ABDOMEN, AND PELVIS WITHOUT IV CONTRAST CLINICAL HISTORY: Trauma. COMPARISON STUDY: Chest x-ray dated 07/18/2021. TECHNIQUE: Unenhanced CT scan of the chest, abdomen, and pelvis was performed from the thoracic inlet to the proximal femora. Images are reviewed in the axial, sagittal, and coronal planes. IV contrast was not administered for this examination. Note that the examination is suboptimal without IV contrast in the setting of trauma. The Examination is also degraded by motion artifact, and by streak artifact from the arms which could not be elevated above the chest or abdomen. A dose lowering technique was utilized adhering to the principles of ALARA. FINDINGS: CHEST: Thyroid: The thyroid gland is enlarged and heterogeneous. Thoracic aorta: There is atherosclerotic calcification of the thoracic aorta, which is normal in caliber and demonstrates standard 3-vessel arch anatomy. Heart: A left subclavian central venous catheter is in place. The heart is enlarged and without pericardial effusion. The coronary arteries are densely calcified. The main pulmonary arteries are mildly dilated suggesting pulmonary artery hypertension. Lungs and pleural spaces: An endotracheal tube terminates above the carson. Evaluation of the lung parenchyma is degraded by motion artifact. There are trace pleural effusions with dependent consolidation. Minimal secretions are noted in the right mainstem bronchus. Minimal patchy groundglass opacities are seen in the right upper lobe (axial image #66). Mediastinum: There is no mediastinal hematoma or lymphadenopathy. Jacklyn: Not well assessed without IV contrast. Axillae: There is no axillary lymphadenopathy. Bony thorax: The skeletal structures are osteopenic. There are acute right anterior 3rd through 6th rib fractures. The 4th rib fracture is mildly displaced. There are acute nondisplaced left anterior 3rd through 7th rib fractures. Degenerative change and hyperkyphosis is noted in the thoracic spine. No lytic or blastic lesions are identified. ABDOMEN AND PELVIS: Liver: The unenhanced liver is normal in size, contour, and attenuation. There is no intra- or extrahepatic biliary ductal dilatation. Gallbladder: Unremarkable. Spleen: Normal in size and attenuation. Pancreas: Unremarkable. Adrenal glands: Unremarkable. Kidneys: The unenhanced kidneys demonstrate cortical atrophy and are without hydronephrosis. There are numerous (at least 10) punctate nonobstructing left renal calculi. Tiny punctate calculi are also noted in the left kidney. Abdominal vasculature: The abdominal aorta is normal in course and caliber noting advanced atherosclerotic calcification. Bowel: Moderate fecal retention is seen throughout the colon. No high-grade bowel obstruction is identified. There are numerous fluid-filled loops of small bowel which may represent ileus. The appendix is not visualized. Peritoneum: There is no intraperitoneal free air or abdominal ascites. There is a large fat-containing umbilical hernia. Lymphadenopathy: None. Pelvic viscera: The prostate gland is enlarged and heterogeneous. The bladder wall appears thickened and trabeculated indicating chronic outlet obstruction. A large left inguinal hernia contains a nonobstructed segment of the sigmoid colon. Skeletal structures: The skeletal structures are osteopenic. The lumbosacral spine, bony pelvis, and proximal femora appear intact. No lytic or blastic lesions are seen. IMPRESSION: 1. Suboptimal examination without IV contrast. There is also streak and motion artifact. 2. There are numerous acute bilateral anterior rib fractures. 3. No additional fracture is identified. 4. No pneumothorax is seen. 5. There are trace pleural effusions with dependent consolidation. This likely represents atelectasis and clinical correlation will be required. 6. There are faint groundglass opacities in the right upper lobe. This could represent a mild pneumonitis, aspiration, or less likely a tiny contusion. 7. Cardiomegaly. 8. There is no evidence of solid organ injury in the abdomen or pelvis on this unenhanced examination. 9. There is a large left inguinal hernia which contains a nonobstructed segment of the sigmoid colon. 10. There are numerous tiny bilateral nonobstructing renal calculi. 11. The small bowel loops are mildly distended and fluid-filled, likely representing ileus. There is no transition point or evidence of high-grade o bstruction. 12. Additional findings as above. ACT 112: Negative or not required by law. Electronically signed by: Ángel Bassett M.D. 07/18/2021 2:[address] 07/18/21 13:37 CT SCAN OF THE CHEST, ABDOMEN, AND PELVIS WITHOUT IV CONTRAST CLINICAL HISTORY: Trauma. COMPARISON STUDY: Chest x-ray dated 07/18/2021. TECHNIQUE: Unenhanced CT scan of the chest, abdomen, and pelvis was performed from the thoracic inlet to the proximal femora. Images are reviewed in the axial, sagittal, and coronal planes. IV contrast was not administered for this examination. Note that the examination is suboptimal without IV contrast in the setting of trauma. The Examination is also degraded by motion artifact, and by streak artifact from the arms which could not be elevated above the chest or abdomen. A dose lowering technique was utilized adhering to the principles of ALARA. FINDINGS: CHEST: Thyroid: The thyroid gland is enlarged and heterogeneous. Thoracic aorta: There is atherosclerotic calcification of the thoracic aorta, which is normal in caliber and demonstrates standard 3-vessel arch anatomy. Heart: A left subclavian central venous catheter is in place. The heart is enlarged and without pericardial effusion. The coronary arteries are densely calcified. The main pulmonary arteries are mildly dilated suggesting pulmonary artery hypertension. Lungs and pleural spaces: An endotracheal tube terminates above the carson. Evaluation of the lung parenchyma is degraded by motion artifact. There are trace pleural effusions with dependent consolidation. Minimal secretions are noted in the right mainstem bronchus. Minimal patchy groundglass opacities are seen in the right upper lobe (axial image #66). Mediastinum: There is no mediastinal hematoma or lymphadenopathy. Jacklyn: Not well assessed without IV contrast. Axillae: There is no axillary lymphadenopathy. Bony thorax: The skeletal structures are osteopenic. There are acute right anterior 3rd through 6th rib fractures. The 4th rib fracture is mildly displaced. There are acute nondisplaced left anterior 3rd through 7th rib fractures. Degenerative change and hyperkyphosis is noted in the thoracic spine. No lytic or blastic lesions are identified. ABDOMEN AND PELVIS: Liver: The unenhanced liver is normal in size, contour, and attenuation. There is no intra- or extrahepatic biliary ductal dilatation. Gallbladder: Unremarkable. Spleen: Normal in size and attenuation. Pancreas: Unremarkable. Adrenal glands: Unremarkable. Kidneys: The unenhanced kidneys demonstrate cortical atrophy and are without hydronephrosis. There are numerous (at least 10) punctate nonobstructing left re nal calculi. Tiny punctate calculi are also noted in the left kidney. Abdominal vasculature: The abdominal aorta is normal in course and caliber noting advanced atherosclerotic calcification. Bowel: Moderate fecal retention is seen throughout the colon. No high-grade bowel obstruction is identified. There are numerous fluid-filled loops of small bowel which may represent ileus. The appendix is not visualized. Peritoneum: There is no intraperitoneal free air or abdominal ascites. There is a large fat-containing umbilical hernia. Lymphadenopathy: None. Pelvic viscera: The prostate gland is enlarged and heterogeneous. The bladder wall appears thickened and trabeculated indicating chronic outlet obstruction. A large left inguinal hernia contains a nonobstructed segment of the sigmoid colon. Skeletal structures: The skeletal structures are osteopenic. The lumbosacral spine, bony pelvis, and proximal femora appear intact. No lytic or blastic lesions are seen. IMPRESSION: 1. Suboptimal examination without IV contrast. There is also streak and motion artifact. 2. There are numerous acute bilateral anterior rib fractures. 3. No additional fracture is identified. 4. No pneumothorax is seen. 5. There are trace pleural effusions with dependent consolidation. This likely represents atelectasis and clinical correlation will be required. 6. There are faint groundglass opacities in the right upper lobe. This could represent a mild pneumonitis, aspiration, or less likely a tiny contusion. 7. Cardiomegaly. 8. There is no evidence of solid organ injury in the abdomen or pelvis on this unenhanced examination. 9. There is a large left inguinal hernia which contains a nonobstructed segment of the sigmoid colon. 10. There are numerous tiny bilateral nonobstructing renal calculi. 11. The small bowel loops are mildly distended and fluid-filled, likely representing ileus. There is no transition point or evidence of high-grade obstruction. 12. Additional findings as above. ACT 112: Negative or not required by law. Electronically signed by: Ángel Bassett M.D. 07/18/2021 2:31 PM Blood Pressure Blood Pressure Findings: Low blood pressure Blood Pressure Disposition: did not require urgent referral Discharge Plan Visit Data Chief Complaint: Cardiac Arrest/CPR Stated Complaint: CARDIAC ARREST ED Provider: Gayle Hale Patient Disposition: Admitted As Inpatient Prescriptions Prescriptions: No Action clopidogrel [Plavix] 75 mg Tablet 75 mg RF: 0 aspirin RF: 0
--- NOTE | 2021-07-18 16:03 | Cardiac Catheterization ---
[facility] Data: Trim Crew Supervisor Cardiac Status Clinical evaluation leading to the procedure CAD Presenation: Unstable angina Anginal Classification: No Symptoms Heart Failure: No Cardiogenic Shock within 24 Hours: Yes Cardiac Arrest within 24 Hours: Yes Imaging Studies Past 6 Months: No Stress Studies Past 6 Months: No Diagnostic Physicians Name: Javier Estevez MD Status: Urgent Closure Device Percutaneous Entry Location: Radial Closure Device: Radial Band Recommendations: Medical Therapy and/or Counseling Cardiac Cath Procedure Full Procedure Date July 18, 2021 Pre-Procedure Diagnosis Pre-Procedure Diagnosis: CAD and Cardiothoracic Symptom (Cardiac arrest) AUC Score AUC Score: 8 Post-Procedure Diagnosis Post-Procedure Diagnosis: Moderate CAD and Normal Intracardiac Pressures Procedure(s) Performed Procedure(s) Performed: Coronary Angiography, Left Heart Cath and Temporary Pacemaker Exhaust And Muffler Fitter Javier Estevez MD Reconciling Clerk(s) [place] Estimated Blood Loss Estimated Blood Loss: 10 Medication(s) Medication(s): Epinephrine and Lidocaine 1% Summary of Findings Indication: Out of hospital cardiac arrest. History of coronary artery disease Access: 6 Fr right radial artery. 5 Fr sheath, 8 Fr catheter to left common femoral veinplaced under ultrasound guidance Catheters: [place], diagnostic JL 3.5, 5 Fr temporary pacer, 8 Fr cooling catheter Findings: LM -large caliber, no significant disease LAD -medium caliber, 30% diffuse proximal to mid, overlapping mid LAD stents with 50 to 60% in-stent restenosis, distal vessel without significant disease wraps around apex with ROLO-3 flow. Circumflex -medium caliber, 30% ostial, large OM 2 with 20% ISR in proximal stent, mid OM 2 stent widely patent. RCA -dominant, 100% earlymid chronic occlusion, reconstitutes via bridging collaterals in latemid RCA stents before occlusion again before distal segment. Distal RCA fills retrograde via [id number] collaterals LVEDP -6 Arterial Closure: TR band Under ultrasound guidance 5 Fr temporary pacer navigated into RV. Pacing confirmed to outputs <1 mA. Summary: 1. Severe chronic coronary artery disease -100% chronic mid RCA occlusion. Distal vessel fills via [id number] collaterals 50 to 60% mid LAD in-stent restenosis 20% in-stent restenosis proximal OM2 stent, mid OM2 stent widely patent 2. Low/normal intracardiac filling pressure 3. Mild aortic stenosis (pullback gradient 10 mmHg) 3. Successful placement of temporary transvenous pacemaker. Final settings VVI, 50 bpm, 5 mA. Recommendations: No acute disease to explain [id number] cardiac arrest. Continue medical management of chronic CAD. Continued hemodynamic support during hypothermia protocol. Hemodynamics Rest Ao:: 84/39/55 Final Ao: 96/43/61 LV: 90/6 Recommendations Recommendations: Medical Therapy and/or Counseling Specimens Specimens: None Radiation Exposure (mGy) 1088 Contrast (mls) 50 Fluids (cc crystalloids) Fluids (cc crystalloids): 600 Drains Drains: None Anesthesia Moderate 0494-4806 Procedural Complication(s) None Disposition ICU I attest to the content of the Intraoperative Record and any orders documented therein. Any exceptions are noted below. [facility] Card Cath Procedure Codes Cardiac Catheterization Procedure 1: Cardiovascular Cath Procedures: 90123 Coronaries and LHC (+/-LV) Therapeutic Services & Ancillary Proc Procedure 1: Cardiovascular Tx and Anc Procedures: 68521 Temp Pacer Insert Procedure 2: Cardiovascular Tx and Anc Procedures: 52464 Ultrasonic Guidance Vascular Access Procedure 3: Cardiovascular Tx and Anc Procedures: 15056 Insertion Central Venous Catheter Moderate Sedation Procedure 1: Sedation/Anesthesia: 34577 Mod Sedation by the same physician;Init15 Min Child Age 5 & Up PG Care Time/CCT Total # of Minutes Spent Total Time Spent with Patient: Total time spent is greater than 50% in coordination of care (as documented) at patient's floor/unit and/or counseling patient:
[2021-07-18] MEDS ORDERED: GLUCOSE 10 TABS/TUBE PO PRN (16:25)
[2021-07-18] MEDS ORDERED: fentaNYL citrate 100 MCG/2 ML VIAL IV PRN (16:25)
[2021-07-18] MEDS ORDERED: MIDAZOLAM HCL 1 MG/ML 2ML VIAL IV PRN (16:25)
[2021-07-18] MEDS ORDERED: GLUCAGON FOR INJ 1 MG VIAL SQ PRN (16:25)
[2021-07-18] MEDS ORDERED: DEXTROSE 50% 50 ML SYRINGE IV PRN (16:25)
[2021-07-18] MEDS ORDERED: GLUCOSE 40% GEL 15 GM TUBE PO PRN (16:25)
[2021-07-18] MEDS ORDERED: ICU PROTOCOL FOR HYPERGLYCEMIA PRN (16:25)
[2021-07-18] MEDS ORDERED: busPIRone 15 MG TAB NG PRN (16:25)
[2021-07-18] MEDS ORDERED: CARBOHYDRATES FOR HYPOGLYCEMIA PO PRN (16:25)
[2021-07-18] MEDS ORDERED: ACETAMINOPHEN SUSP 325 MG/10.15 ML UDC PO PRN (16:30)
[2021-07-18] MEDS ORDERED: INSULIN ASPART PER UNIT SC SCH (16:30)
[2021-07-18] MEDS ORDERED: STAT IV Infusion **Titration per Protocol STA (17:53)
[2021-07-18] MEDS ORDERED: SODIUM BICARB 8.4% INJ 50 MEQ/50 ML SYR IV ONE ×2 (17:53→17:55)
[2021-07-18] MEDS ORDERED: NOREPINEPHRINE/D5W 8 MG/508 ML IV ONE (17:53)
[2021-07-18] MEDS ORDERED: SODIUM BICARB 8.4% INJ 50 MEQ/50 ML SYR IV STA (17:55)
[2021-07-18] MEDS ORDERED: DOBUTamine 500MG / 250ML D5W IV ONE (17:55)
[2021-07-18] MEDS: VASOPRESSIN 20 UNITS in 0.9 % SODIUM CHLORIDE 100 ML IV SCH (18:00)
[2021-07-18 18:17] LABS: iSTAT Art Bld Gas pCO2 Correct 30 mmHg (35-46); iSTAT Art Bld Gas pH Corrected 7.287 (7.35-7.45); iSTAT Arterial Blood Gas HCO3 15 meg/L (19-24); iSTAT Arterial Blood Gas pCO2 36 mmHg (35-46); iSTAT Arterial Blood Gas pH 7.23 (7.35-7.45); iSTAT Arterial Blood Gas pO2 221 mmHg (80-95); iSTAT Arterial Blood Gas pO2 C 202; iSTAT Carbon Dioxide 16 mmol/L (24-31); iSTAT FiO2 100 %; iSTAT Hematocrit 47 % (42-52); iSTAT Potassium 2.5 mmol/L (3.3-5.0); iSTAT Site Art Line; iSTAT Sodium 141 mmol/L (135-144)
[2021-07-18] MEDS: SODIUM CHLORIDE 0.9% 500 ML IV SCH ×2 (18:30→21:03)
--- NOTE | 2021-07-18 19:09 | Communication Note ---
Date of Service: July 18, 2021 At change of shift, nursing staff reports that family is at bedside and requesting to speak with providers regarding care, prognosis, etc. I did meet with the patient's , 2 daughters, and driver recruiter at bedside. We had an extensive conversation discussing events from the day, catheterization findings, and concerning signs/symptoms. We did discuss the extended downtime of greater than 30 minutes. Additionally, we discussed that the patient is not responsive. He has no gag reflex. He is not breathing over the ventilator. He is not requiring sedation. Additionally, the patient is now having twitching of the mouth and face. I expressed my concerns for likely degree of anoxic injury. We discussed ongoing care throughout the night and over the next several hours to days. At this point, family wishes to make patient no compressions in the event of cardiovascular collapse. They are comfortable with defibrillation. They are comfortable with current management at this point. We will continue with current care at this point and monitor for changes over the next several. Did advise that further decision making may be necessary depending on patient's response to therapies over the next hours to days. I have personally spent 35 minutes of critical care time in the direct management of this patient. This is a life/limb threatening event. This includes time spent evaluating patient, direct bedside care, chart review, placing orders, interpretation of diagnostic studies, discussion with consultants, patient, and family members, as well as other required patient management activities. This time is exclusive of all separately billable procedures, and teaching time and separate from and in addition to any other critical care service time. Coding Level of Care Code Critical Care mary hannat'l 30 min Time Spent (min) 35
[2021-07-18] MEDS ORDERED: PHARMACY GLYCEMIC MGMT CONSULT PRN (20:09)
[2021-07-18] MEDS ORDERED: LIDOCAINE 2% JELLY 5 ML TUBE ONE (20:26)
--- NOTE | 2021-07-18 20:53 | Urology Consultation ---
Date of Consultation July 18, 2021 Assessment & Plan (1) Urinary retention: Magdaleno catheter was placed in the following fashion: The patient was identified at the bedside. His penis was exposed and then prepped and draped in the usual sterile fashion. 10 mL of 2% lidocaine jelly were injected per urethra with some resistance. I first attempted to insert the temperature sensing 16 [place] catheter, but met resistance approximately 3 to 4 cm into the pendulous urethra. After several attempts to bypass this resistance with the 16 [place], I switched to an 18 [place] coud catheter. Using gentle pressure, the coud was advanced past this narrowed area, and into proximal urethra which felt normal. The catheter was advanced to the hub, at which point there was return of clear yellow urine. The balloon was inflated with 10 mL normal saline and the catheter was attached to gravity drainage. Urinary retention now managed with Magdaleno catheter. It is unclear what his voiding status is at baseline. Catheter can be maintained per primary team. 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 If he recovers from this acute event, stricture can be discussed as an outpatient. Maintain Magdaleno catheter per primary team Urology will sign off, please contact us if there are any further questions or concerns. History of Present Illness Reason for Consultation: Urinary retention, inability to place catheter Attending Physician: Candelario Culp History of Present Illness This is a 80-year-old male who was recently admitted to the ICU after sustaining a fall with subsequent cardiac arrest. He is undergoing therapeutic hypothermia protocol. His primary team was unable to place Magdaleno catheter and urology was consulted for assistance. He is currently unable to provide any meaningful history. There are no urology notes within the chart. ICU team reports that a 16 [place] temperature-sensing Magdaleno had been attempted, and met resistance in the mid urethra. Bladder scan previously demonstrated 200 mL. He had initially had a condom catheter in place, but was not having significant urine output. Allergies Allergy/AdvReac Type Severity Reaction Status Date / Time No Known Allergies Allergy Unverified 07/18/21 16:14 Home Medications Medication Instructions Recorded Confirmed Type aspirin 07/18/21 History clopidogrel 75 mg tablet (Plavix) 75 mg 07/18/21 History Patient History Medical History CAD (coronary artery disease) Surgical History Stented coronary artery Social History Smoking Status: Never smoker Hx Alcohol Use: No Hx Substance Use: No Preferred Language: Slovenian Communication Ability: Unable Hearing Ability: Use of Hearing Aid Casting Technician Required: No Beliefs That Will Affect Care: None marital status: Current Living Situation: Spouse current occupational status: retired Feels Safe at Home: Yes Assistive Devices: Hearing Aid - Left and Hearing Aid - Right Review of Systems Review of Systems: Patient unable to participate in review of systems due to mental status Physical Exam Constitutional: Sedated Eyes: Eyes closed Respiratory: Intubated Cardiovascular: Regular rhythm on telemetry Gastrointestinal (Abdomen): Abdomen nondistended Musculoskeletal: Grossly normal Skin: line in the left groin Neurologic: Sedated, not responsive to catheterization Genitourinary: Circumcised penis with orthotopic meatus, blood initially at the meatal opening from prior catheterization attempts. Successful catheterization, with subsequent drainage of clear yellow urine.. Results & Data ([facility]) Vital Signs (Past 12 Hours) Vital Signs Temp Temp Pulse Resp BP BP BP 07/18/21 19:42 66 23 07/18/21 18:30 33.0 C L 81 22 07/18/21 18:15 33.0 C L 87 22 07/18/21 18:00 33.0 C L 33 C L 73 22 157/58 H 150/54 H 07/18/21 17:45 32.9 C L 71 22 07/18/21 17:30 32.9 C L 70 24 07/18/21 17:15 32.9 C L 78 24 07/18/21 17:00 32.8 C L 32.9 C L 76 24 106/52 L 106/52 L 111/46 L 07/18/21 16:45 32.8 C L 76 24 07/18/21 16:30 32.9 C L 85 24 07/18/21 16:15 89 24 07/18/21 16:00 33 C L 33 C L 83 24 93/49 L 93/49 L 111/57 L 07/18/21 15:57 83 24 07/18/21 14:30 73 24 07/18/21 14:25 73 24 07/18/21 14:20 72 24 07/18/21 14:15 75 24 115/52 L 07/18/21 14:10 78 24 119/56 L 07/18/21 14:05 80 24 121/60 07/18/21 14:00 83 24 124/61 07/18/21 13:55 86 24 130/60 07/18/21 13:50 87 24 128/60 07/18/21 13:49 88 24 07/18/21 13:41 88 24 07/18/21 13:25 24 07/18/21 13:20 96 H 24 110/54 L 07/18/21 13:15 93 H 23 102/48 L 07/18/21 13:10 99 H 25 H 117/54 L 07/18/21 13:05 74 19 96/43 L 07/18/21 13:02 61 20 63/34 L 07/18/21 13:00 61 18 65/36 L 07/18/21 12:59 60 18 66/37 L 07/18/21 12:58 47 L 18 07/18/21 12:55 86 18 07/18/21 12:50 101 H 0 L 167/88 H 07/18/21 12:45 48 L 18 07/18/21 12:40 51 L 18 07/18/21 12:34 52 L 17 Pulse Ox 07/18/21 19:42 95 07/18/21 18:30 99 07/18/21 18:15 100 07/18/21 18:00 100 07/18/21 17:45 93 07/18/21 17:30 92 07/18/21 17:15 93 07/18/21 17:00 93 07/18/21 16:45 93 07/18/21 16:30 91 07/18/21 16:15 95 07/18/21 16:00 96 07/18/21 15:57 94 07/18/21 14:30 93 07/18/21 14:25 93 07/18/21 14:20 92 07/18/21 14:15 92 07/18/21 14:10 93 07/18/21 14:05 93 07/18/21 14:00 93 07/18/21 13:55 93 07/18/21 13:50 93 07/18/21 13:49 93 07/18/21 13:41 93 07/18/21 13:25 07/18/21 13:20 93 07/18/21 13:15 94 07/18/21 13:10 95 07/18/21 13:05 96 07/18/21 13:02 100 07/18/21 13:00 96 07/18/21 12:59 96 07/18/21 12:58 98 07/18/21 12:55 07/18/21 12:50 98 07/18/21 12:45 07/18/21 12:40 07/18/21 12:34 99 PG Care Time/CCT Total # of Minutes Spent Total Time Spent with Patient: Total time spent is greater than 50% in coordination of care (as documented) at patient's floor/unit and/or counseling patient: Coding Level of Care Code 95236 Initial Inpt Care Lvl 1 Diagnoses Urinary retention R33.9 Urethral stricture N35.919
[2021-07-18 20:55] LABS: Hematocrit (blood only) 42.3 % (42-52); Hemoglobin 13.5 g/dL (14.0-18.0); Mean Corpuscular Hemoglobin 31.3 pg (25-34); Mean Corpuscular Hgb Conc 31.9 g/dL (32-36); Mean Corpuscular Volume 97.9 fL (80-100); Mean Platelet Volume 9.7 fL (7.4-10.4); Platelet Count 219 K/uL (130-400); RDW Coefficient of Variation 15.8 % (11.5-14.5); RDW Standard Deviation 57.4 fL (36.4-46.3); Red Blood Count 4.32 M/uL (4.7-6.1); White Blood Count 22.39 K/uL (4.8-10.8)
[2021-07-18] MEDS ORDERED: SENNA 8.6 MG TAB PO SCH (21:00)
[2021-07-18] MEDS: INSULIN ASPART PER UNIT SC SCH ×2 (21:02→23:16)
[2021-07-18] MEDS: ENOXAPARIN INJ 30 MG/0.3 ML SYR SQ SCH (21:05)
[2021-07-18 21:07] LABS: INR 1.5 (0.9-1.1); Partial Thromboplastin Ratio 0.9; Partial Thromboplastin Time 23.3 Seconds (21.0-31.0); Prothrombin Time 14.9 Seconds (9.0-12.0)
[2021-07-18 21:11] LABS: Basophils # (auto) 0.01 K/uL (0-0.2); Echinocytes 1+; Eosinophils # (auto) 0.01 K/uL (0-0.5); Immature Granulocytes # (auto) 0.06 K/uL (0.00-0.02); Immature Granulocytes % (auto) 0.3 %; Lymphocytes # (auto) 2.51 K/uL (1.2-3.4); Lymphocytes % (auto) 11.2 %; Monocytes # (auto) 1.81 K/uL (0.11-0.59); Monocytes % (auto) 8.1 %; Neutrophils # (auto) 17.99 K/uL (1.4-6.5); Neutrophils % (auto) 80.4 %
[2021-07-18 21:20] LABS: BUN Creatinine Ratio 19.9 (10-20); Calcium 7.3 mg/dl (8.5-10.1); Creatinine Clr Calc Pharmacy 37.6 ml/min; Est GFR (African American) 41.7 ml/min; Magnesium 1.8 mg/dl (1.7-2.4); Phosphorus 3.3 mg/dl (2.5-4.9); Potassium 2.4 mmol/L (3.5-5.1)
[2021-07-18] MEDS ORDERED: POTASSIUM CHLORIDE 40 MEQ in SODIUM CHLORIDE 0.9% 1000ML 1,000 ML IV SCH (21:30)
[2021-07-18] MEDS: POTASSIUM CHLORIDE / WTR 20 MEQ/100 ML PLCT IV SCH ×2 (21:40→23:53)
[2021-07-18] MEDS: SENNOSIDES 8.8 MG/5 ML UDC PO SCH (22:05)
[2021-07-18 22:32] LABS: HCO3 ABG 14 mmol/L (19-24); PCO2 ABG 34 mmHg (35-46); PO2 ABG 113 mmHg (80-95); pH ABG 7.22 (7.35-7.45)
[2021-07-18 22:43] LABS: Allen Test Pos (Pos)
[2021-07-19] MEDS: INSULIN ASPART PER UNIT SC SCH ×2 (00:40→02:28)
[2021-07-19] MEDS: VASOPRESSIN 20 UNITS in 0.9 % SODIUM CHLORIDE 100 ML IV SCH ×3 (00:51→16:37)
[2021-07-19] MEDS: POTASSIUM CHLORIDE / WTR 20 MEQ/100 ML PLCT IV SCH ×3 (00:57→05:36)
[2021-07-19] MEDS: Standard 16mcg/mL; 4 MG in 250 mL for HYPOTENSION IV SCH ×7 (02:28→19:14)
[2021-07-19 02:31] LABS: Hematocrit (blood only) 44.4 % (42-52); Hemoglobin 13.9 g/dL (14.0-18.0); Mean Corpuscular Hemoglobin 31.2 pg (25-34); Mean Corpuscular Hgb Conc 31.3 g/dL (32-36); Mean Corpuscular Volume 99.8 fL (80-100); Mean Platelet Volume 9.9 fL (7.4-10.4); Platelet Count 226 K/uL (130-400); RDW Coefficient of Variation 15.9 % (11.5-14.5); Red Blood Count 4.45 M/uL (4.7-6.1)
[2021-07-19 02:41] LABS: INR 1.2 (0.9-1.1); Partial Thromboplastin Time 26.2 Seconds (21.0-31.0); Prothrombin Time 12.3 Seconds (9.0-12.0)
[2021-07-19 02:45] LABS: Base Excess ABG -14.1 mEq/L (-9-1.8); HCO3 ABG 13 mmol/L (19-24); PCO2 ABG 33 mmHg (35-46); PO2 ABG 89 mmHg (80-95)
[2021-07-19 02:46] LABS: Allen Test POS (Pos)
[2021-07-19 02:53] LABS: BUN Creatinine Ratio 19.1 (10-20); Calcium 8.3 mg/dl (8.5-10.1); Creatinine Clr Calc Pharmacy 28.8 ml/min; Est GFR (African American) 30.2 ml/min; Magnesium 1.9 mg/dl (1.7-2.4); Potassium 3.4 mmol/L (3.5-5.1)
[2021-07-19 02:57] LABS: Basophils # (auto) 0.01 K/uL (0-0.2); Eosinophils # (auto) 0.01 K/uL (0-0.5); Immature Granulocytes # (auto) 0.09 K/uL (0.00-0.02); Immature Granulocytes % (auto) 0.4 %; Lymphocytes # (auto) 1.26 K/uL (1.2-3.4); Lymphocytes % (auto) 5.8 %; Monocytes # (auto) 1.18 K/uL (0.11-0.59); Monocytes % (auto) 5.4 %; Neutrophils # (auto) 19.15 K/uL (1.4-6.5); Neutrophils % (auto) 88.4 %
[2021-07-19] MEDS ORDERED: STAT IV STA (03:06)
[2021-07-19] MEDS ORDERED: SODIUM BICARBONATE 8.4% 75 MEQ in SODIUM CHLORIDE 0.45 % 1,000 ML IV SCH (03:15)
[2021-07-19] MEDS ORDERED: NovoLIN-R BOLUS FROM BAG IV ONE (03:30)
[2021-07-19] MEDS: SODIUM BICARBONATE 8.4% 75 MEQ, POTASSIUM CHLORIDE 40 MEQ in SODIUM CHLORIDE 0.45 % 1,0... IV SCH ×2 (03:30→12:16)
[2021-07-19] MEDS: INSULIN REGULAR 250 UNITS in SODIUM CHLORIDE 0.9% 247.5 ML IV SCH ×3 (03:31→17:15)
[2021-07-19] MEDS ORDERED: INSULIN ASPART PER UNIT SC SCH (04:00)
--- NOTE | 2021-07-19 07:28 | Electrocardiogram Report ---
Test Reason : Blood Pressure : / mmHG Vent. Rate : 051 BPM Atrial Rate : 051 BPM P-R Int : 264 ms QRS Dur : 134 ms QT Int : 456 ms P-R-T Axes : 237 232 -49 degrees QTc Int : 420 ms Unusual P axis, possible ectopic atrial bradycardia possible limb lead reversal Right bundle branch block 1st degree AV block T wave abnormality, consider lateral ischemia Abnormal ECG No previous ECGs available Confirmed by Javier Wilson ([id number]) on 07/19/2021 7:28:42 AM Referred By: REFERRED SELF Confirmed By:Johnathon Wilson
[2021-07-19] MEDS: INSULIN ASPART 100 UNITS/ML 3 ML PEN SC SCH ×4 (07:39→19:48)
--- NOTE | 2021-07-19 08:16 | XCELERA ---
[id number]
[2021-07-19 09:07] LABS: Basophils # (auto) 0.01 K/uL (0-0.2); Hematocrit (blood only) 42.6 % (42-52); Hemoglobin 13.7 g/dL (14.0-18.0); Immature Granulocytes # (auto) 0.07 K/uL (0.00-0.02); Immature Granulocytes % (auto) 0.3 %; Lymphocytes # (auto) 0.83 K/uL (1.2-3.4); Mean Corpuscular Hemoglobin 31.4 pg (25-34); Mean Corpuscular Hgb Conc 32.2 g/dL (32-36); Mean Corpuscular Volume 97.5 fL (80-100); Mean Platelet Volume 10.1 fL (7.4-10.4); Monocytes # (auto) 1.35 K/uL (0.11-0.59); Monocytes % (auto) 6.6 %; Neutrophils % (auto) 89.1 %; Platelet Count 203 K/uL (130-400); RDW Coefficient of Variation 15.9 % (11.5-14.5); RDW Standard Deviation 57.2 fL (36.4-46.3); Red Blood Count 4.37 M/uL (4.7-6.1); White Blood Count 20.56 K/uL (4.8-10.8)
[2021-07-19] MEDS: LANSOPRAZOLE 30 MG SOLTAB NG SCH (09:10)
[2021-07-19 09:25] LABS: Base Excess ABG -9.3 mEq/L (-9-1.8); HCO3 ABG 16 mmol/L (19-24); INR 1.1 (0.9-1.1); Oxygen Saturation ABG 95.6 % (90-95); PCO2 ABG 33 mmHg (35-46); PO2 ABG 79 mmHg (80-95); Partial Thromboplastin Time 26.5 Seconds (21.0-31.0); Prothrombin Time 11.4 Seconds (9.0-12.0)
[2021-07-19 09:48] LABS: BUN Creatinine Ratio 20.3 (10-20); Calcium 8.1 mg/dl (8.5-10.1); Creatinine Clr Calc Pharmacy 28.1 ml/min; Est GFR (African American) 31.5 ml/min; Est GFR (Non-African American) 27.2 ml/min; Magnesium 1.7 mg/dl (1.7-2.4); Phosphorus 1.3 mg/dl (2.5-4.9); Potassium 3.3 mmol/L (3.5-5.1)
--- NOTE | 2021-07-19 09:49 | Cardiology Progress Note ---
Date of Service July 19, 2021 Assessment & Plan (1) Cardiac arrest: Plan: Coronary angiography did not reveal any new or acute obstructive coronary disease. 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 He is undergoing a cooling protocol. There are some signs that he may have had significant hypoxic brain injury The patient does have a temporary pacing wire in place. He has not had additional episodes of significant bradycardia or heart block. It would seem reasonable to leave this wire in place during his period of hypothermia. In the absence of bradycardia once he has returned to a normal temperature, this device can be removed. At this point supportive care has been continued. Cardiology will sign off at this time. If the patient's clinical condition improves and he appears to have a meaningful neurologic recovery we can reassess his need for further cardiac intervention. Admission and Anticipated Discharge Date Admission Date: July 18, 2021 Subjective The patient was intubated and sedated. He could not provide any history. Review of Systems Review of Systems: Unobtainable due to endotracheal tube Physical Exam Physical Exam: Patient is intubated and sedated. Sclerae anicteric Lungs clear Heart rhythm is normal with very soft systolic murmur Results & Data ([facility]) Vital Signs (Past 12 Hours) Vital Signs Temp Temp Pulse Resp BP BP Pulse Ox 07/19/21 09:00 34.1 C L 72 22 139/53 L 126/48 L 97 07/19/21 08:00 33.7 C L 73 22 135/60 122/47 L 97 07/19/21 07:45 33.6 C L 22 96 07/19/21 07:30 33.6 C L 22 97 07/19/21 07:15 33.6 C L 22 98 07/19/21 07:00 33.6 C L 34 C L 62 22 135/60 135/48 L 96 07/19/21 06:00 34 C L 61 22 102/45 L 102/40 L 95 07/19/21 05:00 34 C L 64 22 136/54 L 117/44 L 96 07/19/21 04:00 34 C L 68 22 134/54 L 133/46 L 98 07/19/21 03:00 34 C L 64 22 123/51 L 124/44 L 97 07/19/21 02:21 65 22 95 07/19/21 02:00 34 C L 65 22 130/52 L 136/52 L 98 07/19/21 01:00 34 C L 64 22 130/49 L 122/51 L 95 07/19/21 00:00 34 C L 65 22 123/49 L 126/48 L 96 07/18/21 23:00 34.1 C L 65 24 121/47 L 120/47 L 96 07/18/21 22:30 65 22 95 07/18/21 22:00 34.1 C L 65 24 125/47 L 119/46 L 97 Laboratory Results Abnormal Lab Results 07/18/21 07/18/21 07/18/21 13:02 13:02 13:03 WBC 12.09 H RBC 4.25 L Hgb 13.3 L POC Hgb Hct 42.2 POC Hct MCV 99.3 MCH 31.3 MCHC 31.5 L RDW Std Deviation 58.2 H RDW Coeff of Talia 15.9 H Plt Count 183 MPV 10.4 Immature Gran % (Auto) Neut % (Auto) Lymph % (Auto) Hart % (Auto) Eos % (Auto) Baso % (Auto) Neut # (Auto) Lymph # (Auto) Hart # (Auto) Eos # (Auto) Baso # (Auto) Immature Gran # (Auto) Neutrophils % (Manual) 55.0 Lymphocytes % (Manual) 43.0 Monocytes % (Manual) 1.0 Myelocytes % (Man) 1.0 Other Cells % 0.0 Neutrophils # (Manual) 6.65 H Total Absolute Neuts 6.65 H Lymphocytes # (Manual) 5.20 H Total Abs Lymphocytes 5.20 H Monocytes # (Manual) 0.12 Myelocytes # (Manual) 0.12 H Echinocytes 1+ PT INR APTT PTT Ratio Sample Site POC pH POC pCO2 POC pO2 POC HCO3 POC Total CO2 POC Base Excess ABG pH ABG pH (Temp Correct) ABG pCO2 ABG pCO2 (Temp Corrct ABG pO2 POC ABG pO2 at Pt Temp ABG HCO3 POC ABG O2 Sat ABG O2 Saturation ABG Base Excess Bogdan Test Barometric Pressure Oxygen Given O2 Delivery Device POC O2 Rate Minute Ventilation POC FiO2 Tidal Volume PEEP POC Sodium Sodium 143 POC Potassium Potassium 3.4 L Chloride 102 Carbon Dioxide 23 Anion Gap 18 H BUN 30 H Creatinine 1.73 H Est Cr Clr Drug Dosing Not Reportable Est GFR ( Amer) 42.6 Est GFR (Non-Af Amer) 36.7 BUN/Creatinine Ratio 17.3 Glucose 401 H* POC Glucose (other) Calcium 9.0 Phosphorus Magnesium Total Bilirubin 0.5 AST 218 H ALT 250 H Alkaline Phosphatase 60 Troponin I 0.03 Total Protein 5.8 L Albumin 3.2 L Globulin 2.6 Albumin/Globulin Ratio 1.2 Nasal Screen MRSA (PCR) Blood Type A Positive Antibody Screen NEGATIVE 07/18/21 07/18/21 07/18/21 13:03 13:17 17:43 WBC RBC Hgb POC Hgb 16.0 Hct POC Hct 47 MCV MCH MCHC RDW Std Deviation RDW Coeff of Talia Plt Count MPV Immature Gran % (Auto) Neut % (Auto) Lymph % (Auto) Hart % (Auto) Eos % (Auto) Baso % (Auto) Neut # (Auto) Lymph # (Auto) Hart # (Auto) Eos # (Auto) Baso # (Auto) Immature Gran # (Auto) Neutrophils % (Manual) Lymphocytes % (Manual) Monocytes % (Manual) Myelocytes % (Man) Other Cells % Neutrophils # (Manual) Total Absolute Neuts Lymphocytes # (Manual) Total Abs Lymphocytes Monocytes # (Manual) Myelocytes # (Manual) Echinocytes PT 11.3 INR 1.1 APTT 22.5 PTT Ratio 0.9 Sample Site Art Line POC pH 7.24 L 7.23 L POC pCO2 54 H 36 POC pO2 80 221 H POC HCO3 23 15 L POC Total CO2 24 16 L POC Base Excess -5.0 -12.0 L ABG pH ABG pH (Temp Correct) 7.287 L ABG pCO2 ABG pCO2 (Temp Corrct 30 L ABG pO2 POC ABG pO2 at Pt Temp 202 ABG HCO3 POC ABG O2 Sat 93.0 100.0 H ABG O2 Saturation ABG Base Excess Bogdan Test NA Barometric Pressure Oxygen Given O2 Delivery Device Ventilator POC O2 Rate 24 Minute Ventilation 10.8 POC FiO2 100 Tidal Volume 450 PEEP 5 POC Sodium 141 Sodium POC Potassium 2.5 L* Potassium Chloride Carbon Dioxide Anion Gap BUN Creatinine Est Cr Clr Drug Dosing Est GFR ( Amer) Est GFR (Non-Af Amer) BUN/Creatinine Ratio Glucose POC Glucose (other) Calcium Phosphorus Magnesium Total Bilirubin AST ALT Alkaline Phosphatase Troponin I Total Protein Albumin Globulin Albumin/Globulin Ratio Nasal Screen MRSA (PCR) Blood Type Antibody Screen 07/18/21 07/18/21 07/18/21 18:03 20:32 20:40 WBC RBC Hgb POC Hgb Hct POC Hct MCV MCH MCHC RDW Std Deviation RDW Coeff of Talia Plt Count MPV Immature Gran % (Auto) Neut % (Auto) Lymph % (Auto) Hart % (Auto) Eos % (Auto) Baso % (Auto) Neut # (Auto) Lymph # (Auto) Hart # (Auto) Eos # (Auto) Baso # (Auto) Immature Gran # (Auto) Neutrophils % (Manual) Lymphocytes % (Manual) Monocytes % (Manual) Myelocytes % (Man) Other Cells % Neutrophils # (Manual) Total Absolute Neuts Lymphocytes # (Manual) Total Abs Lymphocytes Monocytes # (Manual) Myelocytes # (Manual) Echinocytes PT INR APTT PTT Ratio Sample Site POC pH POC pCO2 POC pO2 POC HCO3 POC Total CO2 POC Base Excess ABG pH ABG pH (Temp Correct) ABG pCO2 ABG pCO2 (Temp Corrct ABG pO2 POC ABG pO2 at Pt Temp ABG HCO3 POC ABG O2 Sat ABG O2 Saturation ABG Base Excess Bogdan Test Barometric Pressure Oxygen Given O2 Delivery Device POC O2 Rate Minute Ventilation POC FiO2 Tidal Volume PEEP POC Sodium Sodium POC Potassium Potassium Chloride Carbon Dioxide Anion Gap BUN Creatinine Est Cr Clr Drug Dosing Est GFR ( Amer) Est GFR (Non-Af Amer) BUN/Creatinine Ratio Glucose POC Glucose (other) 457 H* 528 H* Calcium Phosphorus Magnesium Total Bilirubin AST ALT Alkaline Phosphatase Troponin I Total Protein Albumin Globulin Albumin/Globulin Ratio Nasal Screen MRSA (PCR) Negative Blood Type Antibody Screen 07/18/21 07/18/21 07/18/21 20:44 20:44 20:44 WBC 22.39 H D RBC 4.32 L Hgb 13.5 L POC Hgb Hct 42.3 POC Hct MCV 97.9 MCH 31.3 MCHC 31.9 L RDW Std Deviation 57.4 H RDW Coeff of Talia 15.8 H Plt Count 219 MPV 9.7 Immature Gran % (Auto) 0.3 Neut % (Auto) 80.4 Lymph % (Auto) 11.2 Hart % (Auto) 8.1 Eos % (Auto) 0.0 Baso % (Auto) 0.0 Neut # (Auto) 17.99 H Lymph # (Auto) 2.51 Hart # (Auto) 1.81 H Eos # (Auto) 0.01 Baso # (Auto) 0.01 Immature Gran # (Auto) 0.06 H Neutrophils % (Manual) Lymphocytes % (Manual) Monocytes % (Manual) Myelocytes % (Man) Other Cells % Neutrophils # (Manual) Total Absolute Neuts Lymphocytes # (Manual) Total Abs Lymphocytes Monocytes # (Manual) Myelocytes # (Manual) Echinocytes 1+ PT 14.9 H INR 1.5 H APTT 23.3 PTT Ratio 0.9 Sample Site POC pH POC pCO2 POC pO2 POC HCO3 POC Total CO2 POC Base Excess ABG pH ABG pH (Temp Correct) ABG pCO2 ABG pCO2 (Temp Corrct ABG pO2 POC ABG pO2 at Pt Temp ABG HCO3 POC ABG O2 Sat ABG O2 Saturation ABG Base Excess Bogdan Test Barometric Pressure Oxygen Given O2 Delivery Device POC O2 Rate Minute Ventilation POC FiO2 Tidal Volume PEEP POC Sodium Sodium 148 H POC Potassium Potassium 2.4 L* D Chloride 107 Carbon Dioxide 13 L Anion Gap 28 H BUN 35 H Creatinine 1.76 H Est Cr Clr Drug Dosing 37.6 Est GFR ( Amer) 41.7 Est GFR (Non-Af Amer) 36.0 BUN/Creatinine Ratio 19.9 Glucose 489 H* POC Glucose (other) Calcium 7.3 L Phosphorus 3.3 Magnesium 1.8 Total Bilirubin AST ALT Alkaline Phosphatase Troponin I Total Protein Albumin Globulin Albumin/Globulin Ratio Nasal Screen MRSA (PCR) Blood Type Antibody Screen 07/18/21 07/18/21 07/18/21 22:17 22:21 22:23 WBC RBC Hgb POC Hgb Hct POC Hct MCV MCH MCHC RDW Std Deviation RDW Coeff of Talia Plt Count MPV Immature Gran % (Auto) Neut % (Auto) Lymph % (Auto) Hart % (Auto) Eos % (Auto) Baso % (Auto) Neut # (Auto) Lymph # (Auto) Hart # (Auto) Eos # (Auto) Baso # (Auto) Immature Gran # (Auto) Neutrophils % (Manual) Lymphocytes % (Manual) Monocytes % (Manual) Myelocytes % (Man) Other Cells % Neutrophils # (Manual) Total Absolute Neuts Lymphocytes # (Manual) Total Abs Lymphocytes Monocytes # (Manual) Myelocytes # (Manual) Echinocytes PT INR APTT PTT Ratio Sample Site POC pH POC pCO2 POC pO2 POC HCO3 POC Total CO2 POC Base Excess ABG pH 7.22 L ABG pH (Temp Correct) ABG pCO2 34 L ABG pCO2 (Temp Corrct ABG pO2 113 H POC ABG pO2 at Pt Temp ABG HCO3 14 L POC ABG O2 Sat ABG O2 Saturation 98.0 H ABG Base Excess -13.0 L Bogdan Test Pos Barometric Pressure 731.4 Oxygen Given VENT O2 Delivery Device POC O2 Rate Minute Ventilation POC FiO2 Tidal Volume PEEP POC Sodium Sodium POC Potassium Potassium Chloride Carbon Dioxide Anion Gap BUN Creatinine Est Cr Clr Drug Dosing Est GFR ( Amer) Est GFR (Non-Af Amer) BUN/Creatinine Ratio Glucose POC Glucose (other) 536 H* Calcium Phosphorus Magnesium Total Bilirubin AST ALT Alkaline Phosphatase Troponin I 0.18 H* Total Protein Albumin Globulin Albumin/Globulin Ratio Nasal Screen MRSA (PCR) Blood Type Antibody Screen 07/19/21 07/19/21 07/19/21 00:46 02:17 02:17 WBC 21.70 H RBC 4.45 L Hgb 13.9 L POC Hgb Hct 44.4 POC Hct MCV 99.8 MCH 31.2 MCHC 31.3 L RDW Std Deviation 59.0 H RDW Coeff of Talia 15.9 H Plt Count 226 MPV 9.9 Immature Gran % (Auto) 0.4 Neut % (Auto) 88.4 Lymph % (Auto) 5.8 Hart % (Auto) 5.4 Eos % (Auto) 0.0 Baso % (Auto) 0.0 Neut # (Auto) 19.15 H Lymph # (Auto) 1.26 Hart # (Auto) 1.18 H Eos # (Auto) 0.01 Baso # (Auto) 0.01 Immature Gran # (Auto) 0.09 H Neutrophils % (Manual) Lymphocytes % (Manual) Monocytes % (Manual) Myelocytes % (Man) Other Cells % Neutrophils # (Manual) Total Absolute Neuts Lymphocytes # (Manual) Total Abs Lymphocytes Monocytes # (Manual) Myelocytes # (Manual) Echinocytes PT 12.3 H INR 1.2 H APTT 26.2 PTT Ratio 1.0 Sample Site POC pH POC pCO2 POC pO2 POC HCO3 POC Total CO2 POC Base Excess ABG pH ABG pH (Temp Correct) ABG pCO2 ABG pCO2 (Temp Corrct ABG pO2 POC ABG pO2 at Pt Temp ABG HCO3 POC ABG O2 Sat ABG O2 Saturation ABG Base Excess Bogdan Test Barometric Pressure Oxygen Given O2 Delivery Device POC O2 Rate Minute Ventilation POC FiO2 Tidal Volume PEEP POC Sodium Sodium POC Potassium Potassium Chloride Carbon Dioxide Anion Gap BUN Creatinine Est Cr Clr Drug Dosing Est GFR ( Amer) Est GFR (Non-Af Amer) BUN/Creatinine Ratio Glucose POC Glucose (other) 552 H* Calcium Phosphorus Magnesium Total Bilirubin AST ALT Alkaline Phosphatase Troponin I Total Protein Albumin Globulin Albumin/Globulin Ratio Nasal Screen MRSA (PCR) Blood Type Antibody Screen 07/19/21 07/19/21 07/19/21 02:17 02:17 02:21 WBC RBC Hgb POC Hgb Hct POC Hct MCV MCH MCHC RDW Std Deviation RDW Coeff of Talia Plt Count MPV Immature Gran % (Auto) Neut % (Auto) Lymph % (Auto) Hart % (Auto) Eos % (Auto) Baso % (Auto) Neut # (Auto) Lymph # (Auto) Hart # (Auto) Eos # (Auto) Baso # (Auto) Immature Gran # (Auto) Neutrophils % (Manual) Lymphocytes % (Manual) Monocytes % (Manual) Myelocytes % (Man) Other Cells % Neutrophils # (Manual) Total Absolute Neuts Lymphocytes # (Manual) Total Abs Lymphocytes Monocytes # (Manual) Myelocytes # (Manual) Echinocytes PT INR APTT PTT Ratio Sample Site POC pH POC pCO2 POC pO2 POC HCO3 POC Total CO2 POC Base Excess ABG pH 7.20 L ABG pH (Temp Correct) ABG pCO2 33 L ABG pCO2 (Temp Corrct ABG pO2 89 POC ABG pO2 at Pt Temp ABG HCO3 13 L POC ABG O2 Sat ABG O2 Saturation 96.0 H ABG Base Excess -14.1 L Bogdan Test POS Barometric Pressure 731.2 Oxygen Given 55 FIO2 O2 Delivery Device POC O2 Rate Minute Ventilation POC FiO2 Tidal Volume PEEP POC Sodium Sodium 146 H POC Potassium Potassium 3.4 L D Chloride 106 Carbon Dioxide 13 L Anion Gap 27 H BUN 44 H Creatinine 2.30 H D Est Cr Clr Drug Dosing 28.8 Est GFR ( Amer) 30.2 Est GFR (Non-Af Amer) 26.0 BUN/Creatinine Ratio 19.1 Glucose 579 H* POC Glucose (other) 563 H* Calcium 8.3 L Phosphorus 5.0 H D Magnesium 1.9 Total Bilirubin AST ALT Alkaline Phosphatase Troponin I Total Protein Albumin Globulin Albumin/Globulin Ratio Nasal Screen MRSA (PCR) Blood Type Antibody Screen 07/19/21 07/19/21 07/19/21 04:35 04:36 05:32 WBC RBC Hgb POC Hgb Hct POC Hct MCV MCH MCHC RDW Std Deviation RDW Coeff of Talia Plt Count MPV Immature Gran % (Auto) Neut % (Auto) Lymph % (Auto) Hart % (Auto) Eos % (Auto) Baso % (Auto) Neut # (Auto) Lymph # (Auto) Hart # (Auto) Eos # (Auto) Baso # (Auto) Immature Gran # (Auto) Neutrophils % (Manual) Lymphocytes % (Manual) Monocytes % (Manual) Myelocytes % (Man) Other Cells % Neutrophils # (Manual) Total Absolute Neuts Lymphocytes # (Manual) Total Abs Lymphocytes Monocytes # (Manual) Myelocytes # (Manual) Echinocytes PT INR APTT PTT Ratio Sample Site POC pH POC pCO2 POC pO2 POC HCO3 POC Total CO2 POC Base Excess ABG pH ABG pH (Temp Correct) ABG pCO2 ABG pCO2 (Temp Corrct ABG pO2 POC ABG pO2 at Pt Temp ABG HCO3 POC ABG O2 Sat ABG O2 Saturation ABG Base Excess Bogdan Test Barometric Pressure Oxygen Given O2 Delivery Device POC O2 Rate Minute Ventilation POC FiO2 Tidal Volume PEEP POC Sodium Sodium POC Potassium Potassium Chloride Carbon Dioxide Anion Gap BUN Creatinine Est Cr Clr Drug Dosing Est GFR ( Amer) Est GFR (Non-Af Amer) BUN/Creatinine Ratio Glucose POC Glucose (other) 575 H* 563 H* Calcium Phosphorus Magnesium Total Bilirubin AST ALT Alkaline Phosphatase Troponin I 0.18 H* Total Protein Albumin Globulin Albumin/Globulin Ratio Nasal Screen MRSA (PCR) Blood Type Antibody Screen 07/19/21 07/19/21 07/19/21 06:30 07:35 08:27 WBC RBC Hgb POC Hgb Hct POC Hct MCV MCH MCHC RDW Std Deviation RDW Coeff of Talia Plt Count MPV Immature Gran % (Auto) Neut % (Auto) Lymph % (Auto) Hart % (Auto) Eos % (Auto) Baso % (Auto) Neut # (Auto) Lymph # (Auto) Hart # (Auto) Eos # (Auto) Baso # (Auto) Immature Gran # (Auto) Neutrophils % (Manual) Lymphocytes % (Manual) Monocytes % (Manual) Myelocytes % (Man) Other Cells % Neutrophils # (Manual) Total Absolute Neuts Lymphocytes # (Manual) Total Abs Lymphocytes Monocytes # (Manual) Myelocytes # (Manual) Echinocytes PT INR APTT PTT Ratio Sample Site POC pH POC pCO2 POC pO2 POC HCO3 POC Total CO2 POC Base Excess ABG pH ABG pH (Temp Correct) ABG pCO2 ABG pCO2 (Temp Corrct ABG pO2 POC ABG pO2 at Pt Temp ABG HCO3 POC ABG O2 Sat ABG O2 Saturation ABG Base Excess Bogdan Test Barometric Pressure Oxygen Given O2 Delivery Device POC O2 Rate Minute Ventilation POC FiO2 Tidal Volume PEEP POC Sodium Sodium POC Potassium Potassium Chloride Carbon Dioxide Anion Gap BUN Creatinine Est Cr Clr Drug Dosing Est GFR ( Amer) Est GFR (Non-Af Amer) BUN/Creatinine Ratio Glucose POC Glucose (other) 560 H* 546 H* 522 H* Calcium Phosphorus Magnesium Total Bilirubin AST ALT Alkaline Phosphatase Troponin I Total Protein Albumin Globulin Albumin/Globulin Ratio Nasal Screen MRSA (PCR) Blood Type Antibody Screen 07/19/21 07/19/21 08:59 08:59 WBC 20.56 H RBC 4.37 L Hgb 13.7 L POC Hgb Hct 42.6 POC Hct MCV 97.5 MCH 31.4 MCHC 32.2 RDW Std Deviation 57.2 H RDW Coeff of Talia 15.9 H Plt Count 203 MPV 10.1 Immature Gran % (Auto) 0.3 Neut % (Auto) 89.1 Lymph % (Auto) 4.0 Hart % (Auto) 6.6 Eos % (Auto) 0.0 Baso % (Auto) 0.0 Neut # (Auto) 18.30 H Lymph # (Auto) 0.83 L Hart # (Auto) 1.35 H Eos # (Auto) 0.00 Baso # (Auto) 0.01 Immature Gran # (Auto) 0.07 H Neutrophils % (Manual) Lymphocytes % (Manual) Monocytes % (Manual) Myelocytes % (Man) Other Cells % Neutrophils # (Manual) Total Absolute Neuts Lymphocytes # (Manual) Total Abs Lymphocytes Monocytes # (Manual) Myelocytes # (Manual) Echinocytes PT 11.4 INR 1.1 APTT 26.5 PTT Ratio 1.0 Sample Site POC pH POC pCO2 POC pO2 POC HCO3 POC Total CO2 POC Base Excess ABG pH ABG pH (Temp Correct) ABG pCO2 ABG pCO2 (Temp Corrct ABG pO2 POC ABG pO2 at Pt Temp ABG HCO3 POC ABG O2 Sat ABG O2 Saturation ABG Base Excess Bogdan Test Barometric Pressure Oxygen Given O2 Delivery Device POC O2 Rate Minute Ventilation POC FiO2 Tidal Volume PEEP POC Sodium Sodium POC Potassium Potassium Chloride Carbon Dioxide Anion Gap BUN Creatinine Est Cr Clr Drug Dosing Est GFR ( Amer) Est GFR (Non-Af Amer) BUN/Creatinine Ratio Glucose POC Glucose (other) Calcium Phosphorus Magnesium Total Bilirubin AST ALT Alkaline Phosphatase Troponin I Total Protein Albumin Globulin Albumin/Globulin Ratio Nasal Screen MRSA (PCR) Blood Type Antibody Screen Diagnostic Findings Echocardiogram performed today revealed preserved LV systolic function. Some mild aortic sclerosis. No other significant valvular heart disease. No pericardial effusion. He appears have normal right ventricular function. PG Care Time/CCT Total # of Minutes Spent Total Time Spent with Patient: Total time spent is greater than 50% in coordination of care (as documented) at patient's floor/unit and/or counseling patient: Coding Level of Care Code 89098 Subseq Hosp Care Lvl 2 Diagnoses Cardiac arrest I46.9
--- NOTE | 2021-07-19 09:51 | Electrocardiogram Report ---
Test Reason : Blood Pressure : / mmHG Vent. Rate : 066 BPM Atrial Rate : 066 BPM P-R Int : 182 ms QRS Dur : 140 ms QT Int : 644 ms P-R-T Axes : 050 -51 026 degrees QTc Int : 675 ms Undetermined rhythm Right bundle branch block Left anterior fascicular block Bifascicular block Abnormal ECG No previous ECGs available Confirmed by Javier Wilson ([id number]) on 07/19/2021 9:50:39 AM Referred By: REFERRED SELF Confirmed By:Johnathon Wilson
--- NOTE | 2021-07-19 09:55 | Electrocardiogram Report ---
Test Reason : Blood Pressure : / mmHG Vent. Rate : 066 BPM Atrial Rate : 066 BPM P-R Int : 200 ms QRS Dur : 132 ms QT Int : 562 ms P-R-T Axes : 072 -37 013 degrees QTc Int : 589 ms Poor data quality, interpretation may be adversely affected Normal sinus rhythm Left axis deviation Right bundle branch block Abnormal ECG When compared with ECG of 18-JUL-2020 20:00, (unconfirmed) QT has shortened Confirmed by Javier Wilson ([id number] on 07/19/2021 9:55:09 AM Referred By: REFERRED SELF Confirmed By:Johnathon Wilson
--- NOTE | 2021-07-19 09:55 | Electrocardiogram Report ---
Test Reason : Blood Pressure : / mmHG Vent. Rate : 066 BPM Atrial Rate : 066 BPM P-R Int : 182 ms QRS Dur : 132 ms QT Int : 522 ms P-R-T Axes : 052 -39 051 degrees QTc Int : 547 ms Normal sinus rhythm Left axis deviation Right bundle branch block Abnormal ECG When compared with ECG of 19-JUL-2020 00:04, (unconfirmed) T wave inversion no longer evident in Inferior leads Confirmed by Javier Wilson ([id number] on 07/19/2021 9:55:26 AM Referred By: REFERRED SELF Confirmed By:Johnatohn Wilson
--- NOTE | 2021-07-19 09:56 | Electrocardiogram Report ---
Test Reason : Blood Pressure : / mmHG Vent. Rate : 064 BPM Atrial Rate : 064 BPM P-R Int : 190 ms QRS Dur : 142 ms QT Int : 664 ms P-R-T Axes : 054 -52 070 degrees QTc Int : 685 ms Normal sinus rhythm Right bundle branch block Left anterior fascicular block Bifascicular block Abnormal ECG Confirmed by Javier Wilson ([id number] on 07/19/2021 9:55:44 AM Referred By: REFERRED SELF Confirmed By:Johnathon Wilson
[2021-07-19 10:14] LABS: Allen Test Pos (Pos)
--- NOTE | 2021-07-19 10:56 | XRay Report ---
XR chest 1V portable CLINICAL HISTORY: intubation TECHNIQUE: Single frontal radiograph of the chest was obtained. Comparison: Comparison is made to chest one view 07/18/2021 FINDINGS: Left subclavian catheter is unchanged. Endotracheal tube tip is 2 cm from the carson. The cardiomedia stinal silhouette is normal. Lungs are underinflated but clear. No evidence of pleural effusion or pn eumothorax. IMPRESSION: Endotracheal tube tip is 2 cm from the carson and can be withdrawn approximately 1 cm for improved po sitioning. ACT 112: Negative or not required by law. Electronically signed by: Wilmar Cottrell M.D. 07/19/2021 10:55 AM
--- NOTE | 2021-07-19 11:24 | Critical Care Progress Note ---
Date of Service July 19, 2021 Assessment & Plan (1) Cardiac arrest: Plan: Reason Critically Ill: 80-year-old male with significant past medical history for coronary artery disease on antiplatelet and Plavix medication who presents after cardiac arrest and fall PLAN: Neuro: Encephalopathy -Patient has not received any sedatives or analgesics -EEG pending C2 fracture -Maintain C-spine precautions and c-collar at all times Resp: Respiratory failure -Decreased and optimized ventilator settings Anterior rib fractures -No pneumothorax seen Bilateral pleural effusions -Likely reactionary to rib fractures secondary to CPR CV: Coronary artery disease Cardiac arrest -No intervene of the lesion discovered -Strongly consider LifeVest should patient improve Fluids/Renal: Acute metabolic acidosis -Sodium bicarbonate 70 5M EQ's and 40 M EQ's potassium chloride with half-normal saline at 125 an hour Acute kidney injury -Discussed with family willingness to proceed with hemodialysis should this be required ID: Afebrile - No indication for antibiotics at this time GI/Nutrition: Unable to place OG tube at this time -Continue n.p.o. status Heme: Probable baseline anemia DVT prophylaxis: 30 mg Lovenox daily Endocrine: ICU hyperglycemia protocol Musculoskeletal: C2 fracture type III -Orthopedic spine consult -Spine precautions -Cervical collar at all times Vascular access: Left subclavian CVL, right femoral arterial line Code Status: Conditional code no CPR Disposition: Critical Care Unit Extensive discussion with patient and daughters at bedside. Advised it strongly appears that the patient has suffered a devastating neurologic injury as he has not had any sedatives and is not showing any signs of neurologic recovery. They reported that they felt they lost their father and yesterday. Additional family members are coming to the bedside we will wait for the rewarming. 2 complete and obtain EEG before proceeding with possible withdraw care. Was emphasized the patient was fiercely independent and would not want to be living in a disabled condition. (2) CAD (coronary artery disease): (3) Facial laceration: (4) Fall (on) (from) other stairs and steps, initial encounter: (5) Closed fracture of C2 vertebra: (6) Ribs, multiple fractures: Admission and Anticipated Discharge Date Admission Date: July 18, 2021 Supervising Physician Co-Signing Physician Notes I have personally spent 55 minutes of critical care time in the direct management of this patient. This is a life/limb threatening event. This includes time spent evaluating patient, direct bedside care, chart review, placing orders, interpretation of diagnostic studies, discussion with consultants, patient, and/or family members regarding treatment decisions, as well as other required patient management activities. This time is exclusive of all separately billable procedures, and teaching time and separate from and in addition to any other critical care service time. Subjective Patient required Magdaleno placement by urology overnight. Review of Systems Review of Systems: Unobtainable due to endotracheal tube Physical Exam Physical Exam: General: Alert. nontoxic. GCS 3 T Skin: Warm, dry, laceration repair clean dry intact Head: Hematoma right supraorbital area Ears, nose, mouth and throat: airway patent obscured by endotracheal tube Cardiovascular: Normal peripheral perfusion Respiratory: Ventilator settings reviewed Gastrointestinal: Non distended Musculoskeletal: No deformity Results & Data Results & Data ([facility]) Vital Signs (Past 12 Hours) Vital Signs Temp Temp Pulse Resp BP BP Pulse Ox 07/19/21 11:00 33.9 C L 69 22 156/62 H 157/55 H 97 07/19/21 10:00 34.1 C L 64 22 146/60 H 148/50 H 98 07/19/21 09:00 34.1 C L 72 22 139/53 L 126/48 L 97 07/19/21 08:00 33.7 C L 73 22 135/60 122/47 L 97 07/19/21 07:56 65 22 97 07/19/21 07:45 33.6 C L 22 96 07/19/21 07:30 33.6 C L 22 97 07/19/21 07:15 33.6 C L 22 98 07/19/21 07:00 33.6 C L 34 C L 62 22 135/60 135/48 L 96 07/19/21 06:00 34 C L 61 22 102/45 L 102/40 L 95 07/19/21 05:00 34 C L 64 22 136/54 L 117/44 L 96 07/19/21 04:00 34 C L 68 22 134/54 L 133/46 L 98 07/19/21 03:00 34 C L 64 22 123/51 L 124/44 L 97 07/19/21 02:21 65 22 95 07/19/21 02:00 34 C L 65 22 130/52 L 136/52 L 98 07/19/21 01:00 34 C L 64 22 130/49 L 122/51 L 95 07/19/21 00:00 34 C L 65 22 123/49 L 126/48 L 96 Critical Care Results & Data Vital Signs (Past 12 Hours) Vital Signs Temp Temp Pulse Resp BP BP Pulse Ox 07/19/21 11:00 33.9 C L 69 22 156/62 H 157/55 H 97 07/19/21 10:00 34.1 C L 64 22 146/60 H 148/50 H 98 07/19/21 09:00 34.1 C L 72 22 139/53 L 126/48 L 97 07/19/21 08:00 33.7 C L 73 22 135/60 122/47 L 97 07/19/21 07:56 65 22 97 07/19/21 07:45 33.6 C L 22 96 07/19/21 07:30 33.6 C L 22 97 07/19/21 07:15 33.6 C L 22 98 07/19/21 07:00 33.6 C L 34 C L 62 22 135/60 135/48 L 96 07/19/21 06:00 34 C L 61 22 102/45 L 102/40 L 95 07/19/21 05:00 34 C L 64 22 136/54 L 117/44 L 96 07/19/21 04:00 34 C L 68 22 134/54 L 133/46 L 98 07/19/21 03:00 34 C L 64 22 123/51 L 124/44 L 97 07/19/21 02:21 65 22 95 07/19/21 02:00 34 C L 65 22 130/52 L 136/52 L 98 07/19/21 01:00 34 C L 64 22 130/49 L 122/51 L 95 07/19/21 00:00 34 C L 65 22 123/49 L 126/48 L 96 Lab & Micro Results (Past 24 Hours) RBC 4.37 M/uL (4.7-6.1) L 07/19/21 WBC 20.56 K/uL (4.8-10.8) H 07/19/21 Hgb 13.7 g/dL (14.0-18.0) L 07/19/21 Hct 42.6 % (42-52) 07/19/21 MCV 97.5 fL (80-100) 07/19/21 MCH 31.4 pg (25-34) 07/19/21 MCHC 32.2 g/dL (32-36) 07/19/21 RDW Standard Deviation 57.2 fL (36.4-46.3) H 07/19/21 RDW Coefficient of Variation 15.9 % (11.5-14.5) H 07/19/21 Plt Count 203 K/uL (130-400) 07/19/21 MPV 10.1 fL (7.4-10.4) 07/19/21 Neutrophils (%) (Auto) 89.1 % 07/19/21 Lymphocytes (%) (Auto) 4.0 % 07/19/21 Monocytes # (Auto) 1.35 K/uL (0.11-0.59) H 07/19/21 Eosinophils # (Auto) 0.00 K/uL (0-0.5) 07/19/21 Immature Granulocyte % (Auto) 0.3 % 07/19/21 Neutrophils # (Auto) 18.30 K/uL (1.4-6.5) H 07/19/21 Lymphocytes # (Auto) 0.83 K/uL (1.2-3.4) L 07/19/21 Monocytes # (Auto) 1.35 K/uL (0.11-0.59) H 07/19/21 Eosinophils # (Auto) 0.00 K/uL (0-0.5) 07/19/21 Basophils # (Auto) 0.01 K/uL (0-0.2) 07/19/21 Immature Granulocyte # (Auto) 0.07 K/uL (0.00-0.02) H 07/19/21 ANC 6.65 K/uL (1.4-6.5) H 07/18/21 ALC 5.20 K/uL (1.2-3.4) H 07/18/21 Neutrophils % (Manual) 55.0 % 07/18/21 Lymphocytes % (Manual) 43.0 % 07/18/21 Monocytes % (Manual) 1.0 % 07/18/21 Myelocytes % (Manual) 1.0 % 07/18/21 Other Cells % 0.0 % 07/18/21 Neutrophils # (Manual) 6.65 K/uL (1.4-6.5) H 07/18/21 Lymphocytes # (Manual) 5.20 K/uL (1.2-3.4) H 07/18/21 Monocytes # (Manual) 0.12 K/uL (0.11-0.59) 07/18/21 Myelocytes # (Manual) 0.12 K/uL (0-0) H 07/18/21 Echinocytes 1+ 07/18/21 Na 146 mmol/L (136-145) H 07/19/21 K 3.3 mmol/L (3.5-5.1) L 07/19/21 Cl 113 mmol/L (98-107) H 07/19/21 CO2 17 mmol/L (21-32) L 07/19/21 Anion Gap 16 (3-11) H 07/19/21 BUN 45 mg/dl (6-23) H 07/19/21 Creatinine 2.22 mg/dl (0.6-1.4) H 07/19/21 Estimated GFR ( Amer) 31.5 ml/min 07/19/21 Estimated GFR (Non-Af Amer) 27.2 ml/min 07/19/21 BUN/Creatinine Ratio 20.3 (10-20) H 07/19/21 Glu 525 mg/dl (70-99(Fasting)) H* 07/19/21 Ca 8.1 mg/dl (8.5-10.1) L 07/19/21 Phosphorus Level 1.3 mg/dl (2.5-4.9) L* 07/19/21 Total Bilirubin 0.5 mg/dl (0.2-1.0) 07/18/21 AST 218 U/L (13-39) H 07/18/21 ALT 250 U/L (7-52) H 07/18/21 Alkaline Phosphatase 60 U/L (34-104) 07/18/21 TP 5.8 gm/dl (6.0-8.3) L 07/18/21 Albumin 3.2 gm/dl (3.4-5.0) L 07/18/21 Globulin 2.6 gm/dl (2.5-4.0) 07/18/21 Albumin/Globulin Ratio 1.2 (0.9-2) 07/18/21 Mg 1.7 mg/dl (1.7-2.4) 07/19/21 08:59 07/19/21 Calcium Level 8.1 mg/dl (8.5-10.1) L 07/19/21 08:59 07/19/21 Prothromb Time International Ratio 1.1 (0.9-1.1) 07/19/21 08:59 07/19/21 Blood Gas Barometric Pressure 728.5 mm/Hg 07/19/21 08:59 07/19/21 Arterial Blood pH 7.30 (7.35-7.45) L 07/19/21 08:59 07/19/21 Arterial Blood Partial Pressure CO2 33 mmHg (35-46) L 07/19/21 08:59 07/19/21 Arterial Blood Partial Pressure O2 79 mmHg (80-95) L 07/19/21 08:59 07/19/21 Arterial Blood HCO3 16 mmol/L (19-24) L 07/19/21 08:59 07/19/21 Arterial Blood Base Excess -9.3 mEq/L (-9-1.8) L 07/19/21 08:59 07/19/21 Arterial Blood Oxygen Saturation 95.6 % (90-95) H 07/19/21 08:59 07/19/21 Blood Gas Oxygen Given 40% 07/19/21 08:59 07/19/21 Bogdan Test Pos (Pos) 07/19/21 08:59 07/19/21 Blood Gas Barometric Pressure 728.5 mm/Hg 07/19/21 08:59 07/19/21 Diagnostic Findings (Past 24 Hours) Head CT 07/18/21 12:48 CT SCAN OF THE BRAIN WITHOUT IV CONTRAST CLINICAL HISTORY: Head injury. Trauma. COMPARISON STUDY: No priors. TECHNIQUE: Unenhanced axial CT scan of the brain is performed from the vertex to the skull base. A dose lowering technique was utilized adhering to the principles of ALARA. FINDINGS: An endotracheal tube is noted on the program director scouting tomogram. Brain parenchyma: There is age-related change noting minimal microangiopathic disease. There is no hemorrhage, mass effect, or evidence of acute territorial ischemia by CT criteria. Mi-white matter differentiation is preserved. No extra-axial fluid collection is seen. Ventricles, sulci, cisterns: Prominent secondary to involutional change. Intracranial vasculature: There is atherosclerotic calcification of the cavernous carotid intervertebral arteries. Calvarium: No depressed calvarial fracture is identified. Soft tissues: There is a frontal scalp hematoma/laceration. Sinuses and mastoids: There is trace mucosal thickening within the maxillary antra and the frontal sinuses. Moderate mucosal thickening is noted within the ethmoid sinuses. Air-fluid levels seen within the posterior ethmoid sinuses and the sphenoid sinuses. The mastoid air cells are well pneumatized. Orbits: The bony orbits are grossly intact. IMPRESSION: 1. There is no hemorrhage, mass effect, or evidence of acute territorial ischemia by CT criteria. 2. Right frontal scalp hematoma. 3. Paranasal sinus disease as above. ACT 112: Negative or not required by law. Electronically signed by: Ángel Bassett M.D. 07/18/2021 1:48 PM Chest X-Ray 07/18/21 12:49 SINGLE VIEW CHEST CLINICAL HISTORY: Cardiac arrest. Intubation. FINDINGS: An AP, portable, supine chest radiograph is obtained. No prior studies are available for comparison at the time of dictation. The examination is degraded by portable technique and patient rotation. A cardiac pad projects over the right upper chest. A left subclavian central venous catheter has been placed. The tip projects over the cavoatrial junction. An endotracheal tube has been placed. The tip projects approximately 3 cm above the carson. The heart is enlarged noting atherosclerotic calcification of the thoracic aorta. The pulmonary vasculature is noncongested. Coronary artery stents are suggested.. There is mild bibasilar atelectasis. No airspace consolidation or large pleural effusion is identified. No pneumothorax is seen. The skeletal structures are osteopenic. The bony thorax is grossly intact. IMPRESSION: 1. Line and tube placement as above. 2. No pneumothorax is seen post procedure. 3. Cardiomegaly without radiographic evidence of congestive failure. 4. No airspace consolidation or large pleural effusion is identified. ACT 112: Negative or not required by law. Electronically signed by: Ángel Bassett M.D. 07/18/2021 1:[address] 07/18/21 13:17 CT SCAN OF THE CERVICAL SPINE CLINICAL HISTORY: Trauma COMPARISON STUDY: No priors. TECHNIQUE: CT scan of the cervical spine is performed from the skull base to the upper thoracic spine. Images are reviewed in the axial, sagittal, and coronal planes. IV contrast was not administered for this examination. A dose lowering technique was utilized adhering to the principles of ALARA. CT DOSE: 1243.10 mGy.cm FINDINGS: Skeletal structures: The skeletal structures are osteopenic. There is a nondisplaced type III fracture through the base of the odontoid process. This involves the anterior cortex at the base of the odontoid and extends obliquely to the posterior cortex of the mid vertebral body. No additional fracture is seen involving the cervical spine. There is no subluxation. Vertebral body height and alignment are maintained. Small anterior osteophytes are seen throughout. C1 is intact. The atlantoaxial articulation is preserved noting productive degenerative change. The spinous processes appear intact. There is moderate multilevel cervical spondylosis. Uncovertebral and facet arthropathy contribute to neural foraminal stenosis at several levels. Intervertebral discs: There is mild multilevel degenerative disc space narrowing, greatest at C3-C4. Central canal: Grossly patent. Soft tissues: The prevertebral and paraspinous soft tissues are within normal limits. There is atherosclerotic calcification of the carotid bulbs. The saphenous catheter is noted at the left thoracic inlet. The thyroid gland is enlarged and heterogeneous. Layering fluid is noted in the pharynx. Calvarium: The visualized calvarium at the skull base appears intact. Brain parenchyma: Partially visualized brain parenchyma at the skull base is within normal limits. Sinuses and mastoids: There is fluid within the maxillary and sphenoid sinuses. The mastoid air cells are well pneumatized. Lung apices: An endotracheal tube is in place. No apical pneumothorax is identified. Upper lobe lung parenchyma is clear as imaged. IMPRESSION: 1. There is a nondisplaced type III fracture through the base of the odontoid process as detailed above. 2. No additional fracture is seen involving the cervical spine. There is no subluxation. 3. Osteopenia and spondylotic change as above. Findings were communicated to Dr. Caballero at the time of interpretation. ACT 112: Negative or not required by law. Electronically signed by: Ángel Bassett M.D. 07/18/2021 2:[address] 07/18/21 13:32 CT SCAN OF THE FACIAL BONES WITHOUT IV CONTRAST CLINICAL HISTORY: Trauma. COMPARISON STUDY: CT scans of the brain and cervical spine performed concurrently on 07/18/2021. TECHNIQUE: High-resolution CT scan of the facial bones is performed. Images are reviewed in the axial, sagittal, and coronal planes. IV contrast was not administered for this examination. A dose lowering technique was utilized adhering to the principles of ALARA. CT DOSE: 2031.87 mGy.cm FINDINGS: The skeletal structures are osteopenic. There is no evidence of facial bone fracture. The bony orbits are intact and the orbital contents are within normal limits. The zygomatic arches, nasal bones, and pterygoid plates are preserved. The maxilla and mandible are intact. The temporomandibular joints are maintained. There is hyperostosis of the maxilla and mandible. There are large periapical lucencies involving a left maxillary incisor and a left maxillary molar. There is a small periapical lucency involving the left mandibular canine. There are no layering blood products within the paranasal sinuses. There is trace mucosal thickening and trace fluid within the maxillary antra. Small air- fluid levels are also seen within the posterior ethmoid sinuses and the sphenoid sinuses. There is moderate mucosal thickening throughout the ethmoid sinuses, and trace mucosal thickening in the frontal sinuses. A 12 mm osteoma is noted in the right frontal sinus. The visualized calvarium appears intact. There is a nondisplaced type III fracture through the base of the odontoid process. Partially imaged brain parenchyma is within normal limits. An endotracheal tube is in place. There is a large right frontal scalp hematoma/laceration. Layering fluid is noted throughout the pharynx. IMPRESSION: 1. There is no evidence of facial bone fracture. 2. There is a nondisplaced type III fracture through the base of the odontoid process. 4. Right frontal scalp hematoma. ACT 112: Negative or not required by law. Electronically signed by: Ángel Bassett M.D. 07/18/2021 2:12 PM Abdomen/Pelvis CT 07/18/21 13:37 CT SCAN OF THE CHEST, ABDOMEN, AND PELVIS WITHOUT IV CONTRAST CLINICAL HISTORY: Trauma. COMPARISON STUDY: Chest x-ray dated 07/18/2021. TECHNIQUE: Unenhanced CT scan of the chest, abdomen, and pelvis was performed from the thoracic inlet to the proximal femora. Images are reviewed in the axial, sagittal, and coronal planes. IV contrast was not administered for this examination. Note that the examination is suboptimal without IV contrast in the setting of trauma. The Examination is also degraded by motion artifact, and by streak artifact from the arms which could not be elevated above the chest or abdomen. A dose lowering technique was utilized adhering to the principles of ALARA. FINDINGS: CHEST: Thyroid: The thyroid gland is enlarged and heterogeneous. Thoracic aorta: There is atherosclerotic calcification of the thoracic aorta, which is normal in caliber and demonstrates standard 3-vessel arch anatomy. Heart: A left subclavian central venous catheter is in place. The heart is enlarged and without pericardial effusion. The coronary arteries are densely calcified. The main pulmonary arteries are mildly dilated suggesting pulmonary artery hypertension. Lungs and pleural spaces: An endotracheal tube terminates above the carson. Evaluation of the lung parenchyma is degraded by motion artifact. There are trace pleural effusions with dependent consolidation. Minimal secretions are noted in the right mainstem bronchus. Minimal patchy groundglass opacities are seen in the right upper lobe (axial image #66). Mediastinum: There is no mediastinal hematoma or lymphadenopathy. Jacklyn: Not well assessed without IV contrast. Axillae: There is no axillary lymphadenopathy. Bony thorax: The skeletal structures are osteopenic. There are acute right anterior 3rd through 6th rib fractures. The 4th rib fracture is mildly displaced. There are acute nondisplaced left anterior 3rd through 7th rib fractures. Degenerative change and hyperkyphosis is noted in the thoracic spine. No lytic or blastic lesions are identified. ABDOMEN AND PELVIS: Liver: The unenhanced liver is normal in size, contour, and attenuation. There is no intra- or extrahepatic biliary ductal dilatation. Gallbladder: Unremarkable. Spleen: Normal in size and attenuation. Pancreas: Unremarkable. Adrenal glands: Unremarkable. Kidneys: The unenhanced kidneys demonstrate cortical atrophy and are without hydronephrosis. There are numerous (at least 10) punctate nonobstructing left renal calculi. Tiny punctate calculi are also noted in the left kidney. Abdominal vasculature: The abdominal aorta is normal in course and caliber noting advanced atherosclerotic calcification. Bowel: Moderate fecal retention is seen throughout the colon. No high-grade bowel obstruction is identified. There are numerous fluid-filled loops of small bowel which may represent ileus. The appendix is not visualized. Peritoneum: There is no intraperitoneal free air or abdominal ascites. There is a large fat-containing umbilical hernia. Lymphadenopathy: None. Pelvic viscera: The prostate gland is enlarged and heterogeneous. The bladder wall appears thickened and trabeculated indicating chronic outlet obstruction. A large left inguinal hernia contains a nonobstructed segment of the sigmoid colon. Skeletal structures: The skeletal structures are osteopenic. The lumbosacral spine, bony pelvis, and proximal femora appear intact. No lytic or blastic lesions are seen. IMPRESSION: 1. Suboptimal examination without IV contrast. There is also streak and motion artifact. 2. There are numerous acute bilateral anterior rib fractures. 3. No additional fracture is identified. 4. No pneumothorax is seen. 5. There are trace pleural effusions with dependent consolidation. This likely represents atelectasis and clinical correlation will be required. 6. There are faint groundglass opacities in the right upper lobe. This could represent a mild pneumonitis, aspiration, or less likely a tiny contusion. 7. Cardiomegaly. 8. There is no evidence of solid organ injury in the abdomen or pelvis on this unenhanced examination. 9. There is a large left inguinal hernia which contains a nonobstructed segment of the sigmoid colon. 10. There are numerous tiny bilateral nonobstructing renal calculi. 11. The small bowel loops are mildly distended and fluid-filled, likely represe nting ileus. There is no transition point or evidence of high-grade obstruction. 12. Additional findings as above. ACT 112: Negative or not required by law. Electronically signed by: Ángel Bassett M.D. 07/18/2021 2:[address] 07/18/21 13:37 CT SCAN OF THE CHEST, ABDOMEN, AND PELVIS WITHOUT IV CONTRAST CLINICAL HISTORY: Trauma. COMPARISON STUDY: Chest x-ray dated 07/18/2021. TECHNIQUE: Unenhanced CT scan of the chest, abdomen, and pelvis was performed from the thoracic inlet to the proximal femora. Images are reviewed in the axial, sagittal, and coronal planes. IV contrast was not administered for this examination. Note that the examination is suboptimal without IV contrast in the setting of trauma. The Examination is also degraded by motion artifact, and by streak artifact from the arms which could not be elevated above the chest or abdomen. A dose lowering technique was utilized adhering to the principles of ALARA. FINDINGS: CHEST: Thyroid: The thyroid gland is enlarged and heterogeneous. Thoracic aorta: There is atherosclerotic calcification of the thoracic aorta, which is normal in caliber and demonstrates standard 3-vessel arch anatomy. Heart: A left subclavian central venous catheter is in place. The heart is enlarged and without pericardial effusion. The coronary arteries are densely calcified. The main pulmonary arteries are mildly dilated suggesting pulmonary artery hypertension. Lungs and pleural spaces: An endotracheal tube terminates above the carson. Evaluation of the lung parenchyma is degraded by motion artifact. There are trace pleural effusions with dependent consolidation. Minimal secretions are noted in the right mainstem bronchus. Minimal patchy groundglass opacities are seen in the right upper lobe (axial image #66). Mediastinum: There is no mediastinal hematoma or lymphadenopathy. Jacklyn: Not well assessed without IV contrast. Axillae: There is no axillary lymphadenopathy. Bony thorax: The skeletal structures are osteopenic. There are acute right anterior 3rd through 6th rib fractures. The 4th rib fracture is mildly displaced. There are acute nondisplaced left anterior 3rd through 7th rib fractures. Degenerative change and hyperkyphosis is noted in the thoracic spine. No lytic or blastic lesions are identified. ABDOMEN AND PELVIS: Liver: The unenhanced liver is normal in size, contour, and attenuation. There is no intra- or extrahepatic biliary ductal dilatation. Gallbladder: Unremarkable. Spleen: Normal in size and attenuation. Pancreas: Unremarkable. Adrenal glands: Unremarkable. Kidneys: The unenhanced kidneys demonstrate cortical atrophy and are without hydronephrosis. There are numerous (at least 10) punctate nonobstructing left renal calculi. Tiny punctate calculi are also noted in the left kidney. Abdominal vasculature: The abdominal aorta is normal in course and caliber noting advanced atherosclerotic calcification. Bowel: Moderate fecal retention is seen throughout the colon. No high-grade bowel obstruction is identified. There are numerous fluid-filled loops of small bowel which may represent ileus. The appendix is not visualized. Peritoneum: There is no intraperitoneal free air or abdominal ascites. There is a large fat-containing umbilical hernia. Lymphadenopathy: None. Pelvic viscera: The prostate gland is enlarged and heterogeneous. The bladder wall appears thickened and trabeculated indicating chronic outlet obstruction. A large left inguinal hernia contains a nonobstructed segment of the sigmoid colon. Skeletal structures: The skeletal structures are osteopenic. The lumbosacral spine, bony pelvis, and proximal femora appear intact. No lytic or blastic lesions are seen. IMPRESSION: 1. Suboptimal examination without IV contrast. There is also streak and motion artifact. 2. There are numerous acute bilateral anterior rib fractures. 3. No additional fracture is identified. 4. No pneumothorax is seen. 5. There are trace pleural effusions with dependent consolidation. This likely represents atelectasis and clinical correlation will be required. 6. There are faint groundglass opacities in the right upper lobe. This could represent a mild pneumonitis, aspiration, or less likely a tiny contusion. 7. Cardiomegaly. 8. There is no evidence of solid organ injury in the abdomen or pelvis on this unenhanced examination. 9. There is a large left inguinal hernia which contains a nonobstructed segment of the sigmoid colon. 10. There are numerous tiny bilateral nonobstructing renal calculi. 11. The small bowel loops are mildly distended and fluid-filled, likely representing ileus. There is no transition point or evidence of high-grade obstruction. 12. Additional findings as above. ACT 112: Negative or not required by law. Electronically signed by: Ángel Bassett M.D. 07/18/2021 2:31 PM Chest X-Ray 07/19/21 07:00 XR chest 1V portable CLINICAL HISTORY: intubation TECHNIQUE: Single frontal radiograph of the chest was obtained. Comparison: Comparison is made to chest one view 07/18/2021 FINDINGS: Left subclavian catheter is unchanged. Endotracheal tube tip is 2 cm from the carson. The cardiomediastinal silhouette is normal. Lungs are underinflated but clear. No evidence of pleural effusion or pneumothorax. IMPRESSION: Endotracheal tube tip is 2 cm from the carson and can be withdrawn approximately 1 cm for improved positioning. ACT 112: Negative or not required by law. Electronically signed by: Wilmar Cottrell M.D. 07/19/2021 10:55 AM I & O Totals 24 Hours 07/18/21 07/19/21 07/20/21 06:59 06:59 06:59 Intake Total 8069.854 / 8069.854 1769.815 / 1769.815 Output Total 482 / 602 600 / 600 Balance 7587.854 / 7467.854 1169.815 / 1169.815 Cumulative 07/18/21 12:26 thru 07/19/21 11:00 Intake Total 9839.669 Output Total 1082 Balance 8757.669 RT Ventilator Mngmt (Last Documented) Ventilator Ordered Settings Ventilator Support Mode Assist Control 07/19/21 08:00 Respiratory Rate 22 07/19/21 11:00 Ventilator Tidal Volume 450 07/19/21 08:00 Setting Minute Ventilation 9.8 07/19/21 07:56 Ventilator Positive Pressure 5 07/19/21 00:00 Support Setting Positive End Expiratory 5 07/19/21 08:00 Pressure Fraction of Inspired Oxygen 40 07/19/21 11:00 Peak Inspiratory Flow 48 07/19/21 07:56 Machine Comment fio2 dropped to 45% due to spo2 07/18/21 22:30 97% on 55% Ventilator - PT Measurements Respiratory Rate 22 Exhaled Tidal Volume 451 Minute Ventilation 9.8 Peak Inspiratory Airway 17 Pressure Plateau Pressure 13.2 Respiratory Cycle Inspiratory: 1:2.6 Expiratory Ratio Inspiratory Phase Time 0.75 End-Tidal CO2 26 Static Lung Compliance 55.00 Dynamic Lung Compliance 37.58 Normal Static Lung Compliance 48.00 Patient Measurements Comment I time decreased to 0.80 and I:E 1:2.1 Coding Level of Care Code Critical Care 1st 30-74 mins Diagnoses Cardiac arrest I46.9 CAD (coronary artery disease) I25.10 Facial laceration S01.81XA Fall (on) (from) other stairs and steps, initial encounter W10.8XXA Closed fracture of C2 vertebra S12.100A Ribs, multiple fractures S22.49XA
[2021-07-19] MEDS ORDERED: ACETAMINOPHEN 650 MG SUPP PR PRN (11:26)
--- NOTE | 2021-07-19 11:54 | Orthopedic Consultation ---
Date of Consultation July 19, 2021 Assessment & Plan (1) Closed fracture of C2 vertebra: Assessment nondisplaced C2 fracture. Plan at this time his fracture is well aligned. I suspect to remain this way and proceed to a fibrous union which is completely reasonable. I recommend transitioning him to a [place] J collar. This collar would be more comfortable with improved padding. The collar may be removed for hygiene purposes. History of Present Illness Reason for Consultation: C2 fracture Attending Physician: Jarvis Villegas MD History of Present Illness This is a 80-year-old male who presents with cardiac arrest and now profound neurologic deterioration. Upon work-up at C2 fracture was noted. Allergies Allergy/AdvReac Type Severity Reaction Status Date / Time No Known Allergies Allergy Unverified 07/18/21 16:14 Home Medications Medication Instructions Recorded Confirmed Type aspirin 07/18/21 History clopidogrel 75 mg tablet (Plavix) 75 mg 07/18/21 History Patient History Medical History CAD (coronary artery disease) Surgical History Stented coronary artery Social History Smoking Status: Never smoker Hx Alcohol Use: No Hx Substance Use: No Preferred Language: Greek Communication Ability: Unable Hearing Ability: Use of Hearing Aid Lead Radiologic Technologist Required: No Beliefs That Will Affect Care: None marital status: Current Living Situation: Spouse current occupational status: retired Feels Safe at Home: Yes Assistive Devices: Oxygen - Continuous Physical Exam Physical Exam: Patient is currently intubated and unresponsive. He does have a hard collar in place. Family is at bedside. Results & Data ([facility]) Vital Signs (Past 12 Hours) Vital Signs Temp Temp Pulse Resp BP BP Pulse Ox 07/19/21 11:00 33.9 C L 69 22 156/62 H 157/55 H 97 07/19/21 10:00 34.1 C L 64 22 146/60 H 148/50 H 98 07/19/21 09:00 34.1 C L 72 22 139/53 L 126/48 L 97 07/19/21 08:00 33.7 C L 73 22 135/60 122/47 L 97 07/19/21 07:56 65 22 97 07/19/21 07:45 33.6 C L 22 96 07/19/21 07:30 33.6 C L 22 97 07/19/21 07:15 33.6 C L 22 98 07/19/21 07:00 33.6 C L 34 C L 62 22 135/60 135/48 L 96 07/19/21 06:00 34 C L 61 22 102/45 L 102/40 L 95 07/19/21 05:00 34 C L 64 22 136/54 L 117/44 L 96 07/19/21 04:00 34 C L 68 22 134/54 L 133/46 L 98 07/19/21 03:00 34 C L 64 22 123/51 L 124/44 L 97 07/19/21 02:21 65 22 95 07/19/21 02:00 34 C L 65 22 130/52 L 136/52 L 98 07/19/21 01:00 34 C L 64 22 130/49 L 122/51 L 95 07/19/21 00:00 34 C L 65 22 123/49 L 126/48 L 96
--- NOTE | 2021-07-19 12:13 | Hospitalist Progress Note ---
Date of Service July 19, 2021 Assessment & Plan (1) Cardiac arrest: Plan: Out of hospital cardiac arrest Patient was found unresponsive at home following a fall. Achieved ROSC following CPR. Underwent cardiac cath with clean coronaries Patient currently intubated ventilated in the ICU Cardiology service on consult. Plan is for rewarming starting 4 PM today If patient makes it out of the hospital, he will need a LifeVest (2) Facial laceration: Plan: Sustained following a fall Wound management (3) Fall (on) (from) other stairs and steps, initial encounter: Plan: Fell from the stairs at home (4) Closed fracture of C2 vertebra: Plan: Was found to have a closed C2 fracture and also multiple rib fractures. [facility] on consult. Continue neck collar, change to a more comfortable one (5) Ribs, multiple fractures: Plan: Multiple rib fractures following a fall No surgical indications for now. (6) Urinary retention: Plan: Post Magdaleno catheter insertion by urology. Patient continues to make good urine. Plan: Patient still on responsive despite not being on sedation. After rewarming today, will have family meeting. Will consult palliative services. Admission and Anticipated Discharge Date Admission Date: July 18, 2021 Subjective patient is intubated and ventilated Review of Systems Review of Systems: unable to obtain, intubated Physical Exam Physical Exam: The patient is intubated and ventilated HEENT--PERRL, EOMI, mucous membranes and oropharynx mildly dry Neck-- No JVD. No bruits. Thyroid normal, trachea midline, no adenopathy. Heart--normal S1 and S2. No murmurs, rubs or gallops. Lungs--Reduced air entry on auscultation Abdomen--normal bowel sounds and soft. Extremities--no cyanosis or clubbing. No edema. Dermatologic--normal skin turgor, normal color, no abnormal lymph nodes, no rash. Neurologic--unable to assess Psychiatric--unable to assess Results & Data Results & Data ([facility]) Vital Signs (Past 12 Hours) Vital Signs Temp Temp Pulse Resp BP BP Pulse Ox 07/19/21 11:00 93.0 F L 69 22 156/62 H 157/55 H 97 07/19/21 10:00 93.4 F L 64 22 146/60 H 148/50 H 98 07/19/21 09:00 93.4 F L 72 22 139/53 L 126/48 L 97 07/19/21 08:00 92.7 F L 73 22 135/60 122/47 L 97 07/19/21 07:56 65 22 97 07/19/21 07:45 92.5 F L 22 96 07/19/21 07:30 92.5 F L 22 97 07/19/21 07:15 92.5 F L 22 98 07/19/21 07:00 92.5 F L 93.2 F L 62 22 135/60 135/48 L 96 07/19/21 06:00 93.2 F L 61 22 102/45 L 102/40 L 95 07/19/21 05:00 93.2 F L 64 22 136/54 L 117/44 L 96 07/19/21 04:00 93.2 F L 68 22 134/54 L 133/46 L 98 07/19/21 03:00 93.2 F L 64 22 123/51 L 124/44 L 97 07/19/21 02:21 65 22 95 07/19/21 02:00 93.2 F L 65 22 130/52 L 136/52 L 98 07/19/21 01:00 93.2 F L 64 22 130/49 L 122/51 L 95 PG Care Time/CCT Total # of Minutes Spent Total Time Spent with Patient: Total time spent is greater than 50% in coordination of care (as documented) at patient's floor/unit and/or counseling patient: Coding Level of Care Code 11114 Subseq Hosp Care Lvl 2 Diagnoses Cardiac arrest I46.9 Facial laceration S01.81XA Fall (on) (from) other stairs and steps, initial encounter W10.8XXA Closed fracture of C2 vertebra S12.100A Ribs, multiple fractures S22.49XA Urinary retention R33.9 Time Spent (min) 35
--- NOTE | 2021-07-19 14:35 | Pharmacy Report ---
Pharmacy Glycemic Short Note 2 - Date of Service July 19, 2021 - Glycemic Short BSG Results (Last 24 hours): 07/18/21 07/18/21 07/18/21 18:03 20:32 20:44 Glucose 489 H* POC Glucose (other) 457 H* 528 H* 07/18/21 07/19/21 07/19/21 22:23 00:46 02:17 Glucose 579 H* POC Glucose (other) 536 H* 552 H* 07/19/21 07/19/21 07/19/21 02:21 04:35 05:32 Glucose POC Glucose (other) 563 H* 575 H* 563 H* 07/19/21 07/19/21 07/19/21 06:30 07:35 08:27 Glucose POC Glucose (other) 560 H* 546 H* 522 H* 07/19/21 07/19/21 07/19/21 08:59 09:46 10:58 Glucose 525 H* POC Glucose (other) 492 H* 460 H* 07/19/21 07/19/21 07/19/21 12:01 12:57 13:57 Glucose POC Glucose (other) 416 H* 383 H* 338 H OUTPATIENT ANTIDIABETIC REGIMEN: * n/a ASSESSMENT: * Mr Gan was admitted yesterday after suffering an out of hospital cardiac arrest. * He underwent therapeutic hypothermia and will begin the rewarming process this afternoon. * Pt is currently intubated/ventilated in the ICU. * BSGs have been elevated since admission and patient has been managed on an IV insulin infusion. Despite very high insulin gtt rates, BSGs remain high. Pt has received some aggressive potassium replacement, but will require additional supplementation while IV insulin infuses. * Prognosis appears poor. PLAN FOR INPATIENT GLYCEMIC CONTROL: * Hold outpatient oral diabetes medications * IV insulin infusion per protocol PLAN FOR DISCHARGE: * tbd
[2021-07-19 14:40] LABS: Basophils # (auto) 0.01 K/uL (0-0.2); Basophils % (auto) 0.1 %; Hemoglobin 13.7 g/dL (14.0-18.0); Immature Granulocytes # (auto) 0.04 K/uL (0.00-0.02); Immature Granulocytes % (auto) 0.2 %; Lymphocytes # (auto) 0.95 K/uL (1.2-3.4); Lymphocytes % (auto) 5.6 %; Mean Corpuscular Hemoglobin 31.4 pg (25-34); Mean Corpuscular Hgb Conc 33.4 g/dL (32-36); Mean Platelet Volume 10.1 fL (7.4-10.4); Monocytes # (auto) 0.75 K/uL (0.11-0.59); Monocytes % (auto) 4.4 %; Neutrophils # (auto) 15.27 K/uL (1.4-6.5); Neutrophils % (auto) 89.7 %; Platelet Count 190 K/uL (130-400); RDW Coefficient of Variation 15.7 % (11.5-14.5); RDW Standard Deviation 54.8 fL (36.4-46.3); Red Blood Count 4.36 M/uL (4.7-6.1); White Blood Count 17.02 K/uL (4.8-10.8)
[2021-07-19 14:43] LABS: Allen Test A-LINE DRAW (Pos); HCO3 ABG 21 mmol/L (19-24); Oxygen Saturation ABG 96.6 % (90-95); PCO2 ABG 34 mmHg (35-46); PO2 ABG 85 mmHg (80-95)
[2021-07-19 14:56] LABS: INR 1.1 (0.9-1.1); Partial Thromboplastin Time 25.6 Seconds (21.0-31.0); Prothrombin Time 10.9 Seconds (9.0-12.0)
[2021-07-19] MEDS: DOBUTamine / D5W 500 MG/250 ML BAG IV SCH ×2 (15:11→15:13)
[2021-07-19 15:18] LABS: Anion Gap 12 (3-11); BUN Creatinine Ratio 22.1 (10-20); Blood Urea Nitrogen 45 mg/dl (6-23); Calcium 8.3 mg/dl (8.5-10.1); Carbon Dioxide 22 mmol/L (21-32); Chloride 115 mmol/L (98-107); Creatinine Clr Calc Pharmacy 30.5 ml/min; Est GFR (African American) 34.9 ml/min; Est GFR (Non-African American) 30.1 ml/min; Glucose 302 mg/dl (70-99(Fasting)); Magnesium 1.6 mg/dl (1.7-2.4); Phosphorus < 1.0 mg/dl (2.5-4.9); Potassium 3.1 mmol/L (3.5-5.1); Sodium 149 mmol/L (136-145)
[2021-07-19] MEDS ORDERED: POTASSIUM PHOS 3 MMOL/1 ML INFUSION IV STA (15:22)
[2021-07-19] MEDS ORDERED: POTASSIUM PHOSPHATE 15 MMOL in SODIUM CHLORIDE 0.9% 250 ML IV ONE (16:00)
[2021-07-19] MEDS: SENNOSIDES 8.8 MG/5 ML UDC PO SCH (19:14)
[2021-07-19] MEDS: ENOXAPARIN INJ 30 MG/0.3 ML SYR SQ SCH (19:47)
--- NOTE | 2021-07-19 20:25 | Electrocardiogram Report ---
Test Reason : Blood Pressure : / mmHG Vent. Rate : 065 BPM Atrial Rate : 065 BPM P-R Int : 184 ms QRS Dur : 132 ms QT Int : 532 ms P-R-T Axes : 043 -45 047 degrees QTc Int : 553 ms Sinus rhythm with occasional ventricular-paced complexes and Premature supraventricular complexes Right bundle branch block Left anterior fascicular block Bifascicular block Abnormal ECG When compared with ECG of 19-JUL-2020 04:16, Electronic ventricular pacemaker has replaced Sinus rhythm Confirmed by Javier Wilson ([id number]) on 07/19/2021 8:24:50 PM Referred By: REFERRED SELF Confirmed By:Johnathon Wilson
--- NOTE | 2021-07-19 20:33 | Electrocardiogram Report ---
Test Reason : Blood Pressure : / mmHG Vent. Rate : 071 BPM Atrial Rate : 071 BPM P-R Int : 172 ms QRS Dur : 122 ms QT Int : 504 ms P-R-T Axes : 050 -53 057 degrees QTc Int : 547 ms Sinus rhythm with Premature supraventricular complexes Right bundle branch block Left anterior fascicular block Bifascicular block Abnormal ECG When compared with ECG of 19-JUL-2020 04:16, Premature supraventricular complexes are now Present ST now depressed in Anterior leads Confirmed by Javier Wilson ([id number]) on 07/19/2021 8:33:33 PM Referred By: REFERRED SELF Confirmed By:Johnathon Wilson
[2021-07-19 20:39] LABS: Hematocrit (blood only) 37.7 % (42-52); Hemoglobin 12.6 g/dL (14.0-18.0); Mean Corpuscular Hemoglobin 30.8 pg (25-34); Mean Corpuscular Hgb Conc 33.4 g/dL (32-36); Mean Corpuscular Volume 92.2 fL (80-100); Mean Platelet Volume 10.1 fL (7.4-10.4); Platelet Count 166 K/uL (130-400); RDW Coefficient of Variation 15.5 % (11.5-14.5); RDW Standard Deviation 52.9 fL (36.4-46.3); Red Blood Count 4.09 M/uL (4.7-6.1); White Blood Count 18.36 K/uL (4.8-10.8)
[2021-07-19 20:50] LABS: INR 1.1 (0.9-1.1); Partial Thromboplastin Time 25.7 Seconds (21.0-31.0); Prothrombin Time 10.9 Seconds (9.0-12.0)
[2021-07-19 20:58] LABS: BUN Creatinine Ratio 26.2 (10-20); Calcium 8.1 mg/dl (8.5-10.1); Creatinine Clr Calc Pharmacy 37.1 ml/min; Est GFR (African American) 44.1 ml/min; Est GFR (Non-African American) 38.1 ml/min; Potassium 3.7 mmol/L (3.5-5.1)
[2021-07-19 21:01] LABS: Magnesium 1.6 mg/dl (1.7-2.4); Phosphorus 1.2 mg/dl (2.5-4.9)
[2021-07-19 21:04] LABS: Basophils # (auto) 0.01 K/uL (0-0.2); Basophils % (auto) 0.1 %; Immature Granulocytes # (auto) 0.09 K/uL (0.00-0.02); Immature Granulocytes % (auto) 0.5 %; Lymphocytes % (auto) 5.4 %; Monocytes # (auto) 1.67 K/uL (0.11-0.59); Monocytes % (auto) 9.1 %; Neutrophils # (auto) 15.59 K/uL (1.4-6.5); Neutrophils % (auto) 84.9 %
[2021-07-19] MEDS: POTASSIUM ACETATE IV SCH (21:07)
[2021-07-19] MEDS: SODIUM BICARBONATE IV SCH (21:07)
[2021-07-19] MEDS: [UNRECOGNIZED DRUG - OTHER] IV SCH (21:07)
[2021-07-20] MEDS: VASOPRESSIN 20 UNITS in 0.9 % SODIUM CHLORIDE 100 ML IV SCH ×3 (01:22→19:52)
[2021-07-20 02:42] LABS: Basophils # (auto) 0.01 K/uL (0-0.2); Basophils % (auto) 0.1 %; Hematocrit (blood only) 35.8 % (42-52); Hemoglobin 11.8 g/dL (14.0-18.0); Immature Granulocytes # (auto) 0.07 K/uL (0.00-0.02); Immature Granulocytes % (auto) 0.4 %; Lymphocytes # (auto) 0.79 K/uL (1.2-3.4); Lymphocytes % (auto) 4.8 %; Mean Corpuscular Hemoglobin 30.6 pg (25-34); Mean Corpuscular Volume 92.7 fL (80-100); Mean Platelet Volume 9.4 fL (7.4-10.4); Monocytes # (auto) 0.94 K/uL (0.11-0.59); Monocytes % (auto) 5.7 %; Neutrophils # (auto) 14.72 K/uL (1.4-6.5); Platelet Count 151 K/uL (130-400); RDW Coefficient of Variation 15.9 % (11.5-14.5); RDW Standard Deviation 53.8 fL (36.4-46.3); Red Blood Count 3.86 M/uL (4.7-6.1); White Blood Count 16.53 K/uL (4.8-10.8)
[2021-07-20 02:52] LABS: INR 1.1 (0.9-1.1); Partial Thromboplastin Time 27.2 Seconds (21.0-31.0); Prothrombin Time 11.4 Seconds (9.0-12.0)
[2021-07-20 03:08] LABS: BUN Creatinine Ratio 27.4 (10-20); Calcium 7.8 mg/dl (8.5-10.1); Creatinine Clr Calc Pharmacy 39.7 ml/min; Est GFR (African American) 47.9 ml/min; Est GFR (Non-African American) 41.3 ml/min; Magnesium 1.5 mg/dl (1.7-2.4); Phosphorus 2.3 mg/dl (2.5-4.9); Potassium 4.3 mmol/L (3.5-5.1)
[2021-07-20 03:21] LABS: iSTAT Arterial Blood Gas HCO3 24 meg/L (19-24); iSTAT Arterial Blood Gas pCO2 31 mmHg (35-46); iSTAT Arterial Blood Gas pO2 67 mmHg (80-95); iSTAT Carbon Dioxide 25 mmol/L (24-31); iSTAT FiO2 30 %; iSTAT Site Art Line
[2021-07-20] MEDS: Standard 16mcg/mL; 4 MG in 250 mL for HYPOTENSION IV SCH ×4 (04:14→20:11)
[2021-07-20] MEDS: SODIUM BICARBONATE IV SCH (05:38)
[2021-07-20] MEDS: [UNRECOGNIZED DRUG - OTHER] IV SCH (05:38)
[2021-07-20] MEDS: POTASSIUM ACETATE IV SCH (05:38)
--- NOTE | 2021-07-20 07:18 | XRay Report ---
XR chest 1V portable HISTORY: 80 years-old Male intubation acute respiratory failure COMPARISON: Chest radiograph 07/19/2021, chest CT 07/18/2021. TECHNIQUE: Portable AP view of the chest FINDINGS: The endotracheal tube overlies the midline, 3 cm superior to the carson. Left subclavian venous xochilt ter distal tip overlies the mid to inferior aspect of the SVC. Two additional catheters are partially imaged projecting over the upper abdomen/lower chest. Coronary artery calcifications. No pneumothorax. Trace pleural effusions are suggested. Mild bibasilar densities are unchanged. No ov ert pulmonary edema. Degenerative changes of the shoulders and spine. IMPRESSION: 1. Lines and tubes as above. 2. Persistent mild bibasilar opacities suggestive of atelectasis versus pneumonitis. ACT 112: Negative or not required by law. The above report was generated using voice recognition software. It may contain grammatical, syntax o r spelling errors. Electronically signed by: Diego Jaramillo M.D. 07/20/2021 7:16 AM
[2021-07-20 07:38] LABS: Estimated Average Glucose 174 mg/dl; Hemoglobin A1C 7.7 % (4.5-5.6)
[2021-07-20] MEDS: INSULIN ASPART 100 UNITS/ML 3 ML PEN SC SCH ×4 (07:51→20:21)
[2021-07-20] MEDS: LANSOPRAZOLE 30 MG SOLTAB NG SCH (07:55)
[2021-07-20 08:46] LABS: Hematocrit (blood only) 36.8 % (42-52); Hemoglobin 12.1 g/dL (14.0-18.0); Mean Corpuscular Hemoglobin 30.6 pg (25-34); Mean Corpuscular Hgb Conc 32.9 g/dL (32-36); Mean Corpuscular Volume 92.9 fL (80-100); Mean Platelet Volume 10.4 fL (7.4-10.4); Platelet Count 165 K/uL (130-400); RDW Coefficient of Variation 16.2 % (11.5-14.5); RDW Standard Deviation 55.5 fL (36.4-46.3); Red Blood Count 3.96 M/uL (4.7-6.1); White Blood Count 19.47 K/uL (4.8-10.8)
[2021-07-20 08:57] LABS: INR 1.1 (0.9-1.1); Partial Thromboplastin Time 25.6 Seconds (21.0-31.0); Prothrombin Time 11.1 Seconds (9.0-12.0)
[2021-07-20 09:02] LABS: BUN Creatinine Ratio 28.3 (10-20); Calcium 7.7 mg/dl (8.5-10.1); Creatinine Clr Calc Pharmacy 42.2 ml/min; Est GFR (African American) 49.8 ml/min; Magnesium 1.7 mg/dl (1.7-2.4); Phosphorus 3.4 mg/dl (2.5-4.9); Potassium 4.8 mmol/L (3.5-5.1)
[2021-07-20 09:13] LABS: Basophils # (auto) 0.01 K/uL (0-0.2); Basophils % (auto) 0.1 %; Immature Granulocytes # (auto) 0.36 K/uL (0.00-0.02); Immature Granulocytes % (auto) 1.8 %; Lymphocytes # (auto) 0.68 K/uL (1.2-3.4); Lymphocytes % (auto) 3.5 %; Monocytes # (auto) 1.26 K/uL (0.11-0.59); Monocytes % (auto) 6.5 %; Neutrophils # (auto) 17.16 K/uL (1.4-6.5); Neutrophils % (auto) 88.1 %
--- NOTE | 2021-07-20 10:05 | Electrocardiogram Report ---
Test Reason : Blood Pressure : / mmHG Vent. Rate : 073 BPM Atrial Rate : 073 BPM P-R Int : 174 ms QRS Dur : 118 ms QT Int : 390 ms P-R-T Axes : 045 -49 057 degrees QTc Int : 429 ms Sinus rhythm with occasional Premature ventricular complexes Incomplete right bundle branch block Left anterior fascicular block Abnormal ECG When compared with ECG of 19-JUL-2020 16:45, (unconfirmed) Premature ventricular complexes are now Present QT has shortened Confirmed by Javier Wilson ([id number]) on 07/20/2021 10:04:50 AM Referred By: REFERRED SELF Confirmed By:Johnathon Wilson
--- NOTE | 2021-07-20 10:05 | Electrocardiogram Report ---
Test Reason : Blood Pressure : / mmHG Vent. Rate : 073 BPM Atrial Rate : 073 BPM P-R Int : 174 ms QRS Dur : 124 ms QT Int : 434 ms P-R-T Axes : 037 -49 065 degrees QTc Int : 478 ms Normal sinus rhythm Right bundle branch block Left anterior fascicular block Bifascicular block Abnormal ECG When compared with ECG of 19-JUL-2020 12:42, Premature supraventricular complexes are no longer Present QT has shortened Confirmed by Javier Wilson ([id number]) on 07/20/2021 10:04:42 AM Referred By: REFERRED SELF Confirmed By:Johnathon Wilson
--- NOTE | 2021-07-20 10:05 | Electrocardiogram Report ---
Test Reason : Blood Pressure : / mmHG Vent. Rate : 083 BPM Atrial Rate : 083 BPM P-R Int : 168 ms QRS Dur : 110 ms QT Int : 396 ms P-R-T Axes : 050 -46 061 degrees QTc Int : 465 ms Sinus rhythm with occasional Premature ventricular complexes Incomplete right bundle branch block Left anterior fascicular block Abnormal ECG When compared with ECG of 19-JUL-2020 19:52, (unconfirmed) No significant change was found Confirmed by Javier Wilson ([id number]) on 07/20/2021 10:04:35 AM Referred By: REFERRED SELF Confirmed By:Johnathon Wilson
[2021-07-20] MEDS: SODIUM CHLORIDE 0.45 % 1,000 ML IV SCH ×2 (10:26→23:52)
[2021-07-20] MEDS: MAGNESIUM SULFATE / D5W 1 GM/100 ML BAG IV SCH ×2 (10:28→12:12)
--- NOTE | 2021-07-20 10:46 | Electroencephalogram ---
EEG Procedure Note Date of Service July 20, 2021 Start / End Times Start Time: 9:08 AM End Time: 9:28 AM Referring Physician Ayden Caballero History Cardiac arrest, code [place], encephalopathy Home Medication List Medication Instructions Recorded Confirmed Type aspirin 07/18/21 History clopidogrel 75 mg tablet (Plavix) 75 mg 07/18/21 History Inpatient Medication List Enoxaparin Sodium (Enoxaparin Inj 30 Mg/0.3 Ml Syr) 30 mg SQ Q24H [facility] Stop: 08/17/21 16:44 Last Admin: 07/19/21 19:47 Dose: 30 mg Documented by: [id number] Admin: 07/18/21 21:05 Dose: 30 mg Documented by: [id number] Epinephrine HCl () 4 mg in 254 mls @ 102.87 mls/hr IV .Q2H29M MICHELLE; Protocol Stop: 08/17/21 13:14 Last Admin: 07/20/21 09:43 Dose: 0.15 mcg/kg/min, 51.4 mls/hr Documented by: [id number] Cosigned by: [id number] Titration: 07/20/21 08:29 Dose: 0.15 mcg/kg/min, 51.4 mls/hr Documented by: [id number] Cosigned by: [id number] Titration: 07/20/21 06:20 Dose: 0.15 mcg/kg/min, 51.4 mls/hr Documented by: [id number] Admin: 07/20/21 04:14 Dose: 0.2 mcg/kg/min, 68.6 mls/hr Documented by: [id number] Cosigned by: [id number] Titration: 07/20/21 00:00 Dose: 0.1 mcg/kg/min, 34.3 mls/hr Documented by: [id number] Cosigned by: [id number] Titration: 07/19/21 21:53 Dose: 0.1 mcg/kg/min, 34.3 mls/hr Documented by: [id number] Admin: 07/19/21 19:14 Dose: 0.2 mcg/kg/min, 68.6 mls/hr Documented by: [id number] Cosigned by: [id number] Titration: 07/19/21 19:12 Dose: 0.2 mcg/kg/min, 68.6 mls/hr Documented by: [id number] Cosigned by: [id number] Titration: 07/19/21 19:03 Dose: 0.2 mcg/kg/min, 68.6 mls/hr Documented by: [id number] Cosigned by: [id number] Admin: 07/19/21 15:29 Dose: 0.2 mcg/kg/min, 68.6 mls/hr Documented by: [id number] Cosigned by: [id number] Titration: 07/19/21 15:29 Dose: 0.2 mcg/kg/min, 68.6 mls/hr Documented by: [id number] Cosigned by: [id number] Titration: 07/19/21 14:07 Dose: 0.2 mcg/kg/min, 68.6 mls/hr Documented by: [id number] Admin: 07/19/21 12:50 Dose: 0.3 mcg/kg/min, 102.9 mls/hr Documented by: [id number] Cosigned by: [id number] Titration: 07/19/21 12:47 Dose: 0.3 mcg/kg/min, 102.9 mls/hr Documented by: [id number] Cosigned by: [id number] Admin: 07/19/21 10:18 Dose: 0.3 mcg/kg/min, 102.9 mls/hr Documented by: [id number] Cosigned by: [id number] Titration: 07/19/21 10:09 Dose: 0.3 mcg/kg/min, 102.9 mls/hr Documented by: [id number] Cosigned by: [id number] Admin: 07/19/21 07:40 Dose: 0.3 mcg/kg/min, 102.9 mls/hr Documented by: [id number] Cosigned by: [id number] Titration: 07/19/21 07:31 Dose: 0.3 mcg/kg/min, 102.9 mls/hr Documented by: [id number] Cosigned by: [id number] Admin: 07/19/21 05:02 Dose: 0.3 mcg/kg/min, 102.9 mls/hr Documented by: [id number] Cosigned by: [id number] Titration: 07/19/21 04:57 Dose: 0.3 mcg/kg/min, 102.9 mls/hr Documented by: [id number] Cosigned by: [id number] Admin: 07/19/21 02:28 Dose: 0.3 mcg/kg/min, 102.9 mls/hr Documented by: [id number] Cosigned by: [id number] Titration: 07/19/21 02:20 Dose: 0.25 mcg/kg/min, 85.7 mls/hr Documented by: [id number] Cosigned by: [id number] Admin: 07/18/21 23:51 Dose: 0.3 mcg/kg/min, 102.9 mls/hr Documented by: [id number] Cosigned by: [id number] Titration: 07/18/21 23:51 Dose: 0.3 mcg/kg/min, 102.9 mls/hr Documented by: [id number] Cosigned by: [id number] Admin: 07/18/21 21:41 Dose: 0.3 mcg/kg/min, 102.9 mls/hr Documented by: [id number] Cosigned by: [id number] Titration: 07/18/21 21:40 Dose: 0.3 mcg/kg/min, 102.9 mls/hr Documented by: [id number] Cosigned by: [id number] Admin: 07/18/21 21:05 Dose: 0.5 mcg/kg/min, 171.5 mls/hr Documented by: [id number] Cosigned by: [id number] Titration: 07/18/21 20:55 Dose: 0.25 mcg/kg/min, 85.7 mls/hr Documented by: [id number] Cosigned by: [id number] Admin: 07/18/21 19:26 Dose: 0.5 mcg/kg/min, 171.5 mls/hr Documented by: [id number] Cosigned by: [id number] Titration: 07/18/21 17:51 Dose: 0.4 mcg/kg/min, 137.2 mls/hr Documented by: [id number] Cosigned by: [id number] Admin: 07/18/21 15:59 Dose: 0.4 mcg/kg/min, 137.2 mls/hr Documented by: [id number] Cosigned by: [id number] Titration: 07/18/21 15:09 Dose: 0.4 mcg/kg/min, 137.2 mls/hr Documented by: [id number] Cosigned by: [id number] Titration: 07/18/21 13:39 Dose: 0.4 mcg/kg/min, 137.2 mls/hr Documented by: [id number] Titration: 07/18/21 13:29 Dose: 0.3 mcg/kg/min, 102.9 mls/hr Documented by: [id number] Titration: 07/18/21 13:16 Dose: 0.4 mcg/kg/min, 137.2 mls/hr Documented by: [id number] Admin: 07/18/21 13:15 Dose: 0.3 mcg/kg/min, 102.9 mls/hr Documented by: [id number] Vasopressin 20 units/ Sodium (Chloride) 101 mls @ 12.12 mls/hr IV .Q8H20M [facility] Stop: 08/17/21 17:59 Last Admin: 07/20/21 10:26 Dose: 0.04 unit/min, 12.1 mls/hr Documented by: [id number] Cosigned by: [id number] Infusion: 07/20/21 09:43 Dose: 0.04 unit/min, 12.1 mls/hr Documented by: [id number] Cosigned by: [id number] Admin: 07/20/21 01:22 Dose: 0.04 unit/min, 12.1 mls/hr Documented by: [id number] Cosigned by: [id number] Infusion: 07/20/21 00:58 Dose: 0.04 unit/min, 12.1 mls/hr Documented by: [id number] Cosigned by: [id number] Infusion: 07/19/21 19:03 Dose: 0.04 unit/min, 12.1 mls/hr Documented by: [id number] Cosigned by: [id number] Admin: 07/19/21 16:37 Dose: 0.04 unit/min, 12.1 mls/hr Documented by: [id number] Cosigned by: [id number] Infusion: 07/19/21 16:37 Dose: 0.04 unit/min, 12.1 mls/hr Documented by: [id number] Cosigned by: [id number] Admin: 07/19/21 09:10 Dose: 0.04 unit/min, 12.1 mls/hr Documented by: [id number] Cosigned by: [id number] Infusion: 07/19/21 09:10 Dose: 0.04 unit/min, 12.1 mls/hr Documented by: [id number] Cosigned by: [id number] Admin: 07/19/21 00:51 Dose: 0.04 unit/min, 12.1 mls/hr Documented by: [id number] Cosigned by: [id number] Infusion: 07/19/21 00:51 Dose: 0.04 unit/min, 12.1 mls/hr Documented by: [id number] Cosigned by: [id number] Admin: 07/18/21 18:00 Dose: 0.04 unit/min, 12.1 mls/hr Documented by: [id number] Cosigned by: [id number] Insulin Human Regular 250 (units/ Sodium Chloride) 250 mls @ 1.6 mls/hr IV .Q24H MICHELLE; Protocol Stop: 08/18/21 03:29 Last Titration: 07/20/21 09:50 Dose: 1.6 units/hr, 1.6 mls/hr Documented by: [id number] Cosigned by: [id number] Titration: 07/20/21 06:19 Dose: 2 units/hr, 2 mls/hr Documented by: [id number] Cosigned by: [id number] Titration: 07/20/21 04:18 Dose: 0 units/hr, 0 mls/hr Documented by: [id number] Cosigned by: [id number] Titration: 07/20/21 03:15 Dose: 2 units/hr, 2 mls/hr Documented by: [id number] Cosigned by: [id number] Titration: 07/20/21 02:06 Dose: 8 units/hr, 8 mls/hr Documented by: [id number] Cosigned by: [id number] Titration: 07/19/21 19:03 Dose: 0 units/hr, 0 mls/hr Documented by: [id number] Cosigned by: [id number] Titration: 07/19/21 18:10 Dose: 0 units/hr, 0 mls/hr Documented by: [id number] Cosigned by: [id number] Admin: 07/19/21 17:15 Dose: Not Given Documented by: [id number] Cosigned by: [id number] Titration: 07/19/21 17:12 Dose: 19.3 units/hr, 19.3 mls/hr Documented by: [id number] Cosigned by: [id number] Admin: 07/19/21 16:37 Dose: 24.1 units/hr, 24.1 mls/hr Documented by: [id number] Cosigned by: [id number] Titration: 07/19/21 16:37 Dose: 24.1 units/hr, 24.1 mls/hr Documented by: [id number] Cosigned by: [id number] Titration: 07/19/21 16:34 Dose: 24.1 units/hr, 24.1 mls/hr Documented by: [id number] Cosigned by: [id number] Titration: 07/19/21 13:01 Dose: 30.1 units/hr, 30.1 mls/hr Documented by: [id number] Cosigned by: [id number] Titration: 07/19/21 12:08 Dose: 25.9 units/hr, 25.9 mls/hr Documented by: [id number] Cosigned by: [id number] Titration: 07/19/21 11:00 Dose: 20.9 units/hr, 20.9 mls/hr Documented by: [id number] Cosigned by: [id number] Titration: 07/19/21 09:53 Dose: 17.4 units/hr, 17.4 mls/hr Documented by: [id number] Cosigned by: [id number] Titration: 07/19/21 08:30 Dose: 14.5 units/hr, 14.5 mls/hr Documented by: [id number] Cosigned by: [id number] Titration: 07/19/21 07:30 Dose: 12.1 units/hr, 12.1 mls/hr Documented by: [id number] Cosigned by: [id number] Titration: 07/19/21 06:33 Dose: 10.1 units/hr, 10.1 mls/hr Documented by: [id number] Cosigned by: [id number] Titration: 07/19/21 05:34 Dose: 8.4 units/hr, 8.4 mls/hr Documented by: [id number] Cosigned by: [id number] Titration: 07/19/21 04:30 Dose: 7 units/hr, 7 mls/hr Documented by: [id number] Cosigned by: [id number] Admin: 07/19/21 03:31 Dose: 5 units/hr, 5 mls/hr Documented by: [id number] Cosigned by: [id number] Sodium Chloride (1/2 Nss) 1,000 mls @ 75 mls/hr IV .[id number] MICHELLE Stop: 08/19/21 10:14 Last Admin: 07/20/21 10:26 Dose: 75 mls/hr Documented by: [id number] Magnesium Sulfate/Dextrose (Magnesium Sulfate / D5w) 1 gm in 100 mls @ 50 mls/hr IV Q2H [facility] Stop: 07/20/21 14:29 Last Admin: 07/20/21 10:28 Dose: 50 mls/hr Documented by: [id number] Insulin Aspart (Insulin Aspart 100 Units/Ml 3 Ml Pen) 0 units SC ACHS [facility] Stop: 08/18/21 07:29 Last Admin: 07/20/21 07:51 Dose: Not Given Documented by: [id number] Admin: 07/19/21 19:48 Dose: Not Given Documented by: [id number] Admin: 07/19/21 15:12 Dose: Not Given Documented by: [id number] Admin: 07/19/21 12:49 Dose: Not Given Documented by: [id number] Cosigned by: [id number] Admin: 07/19/21 07:39 Dose: Not Given Documented by: [id number] Cosigned by: [id number] Lansoprazole (Lansoprazole 30 Mg Soltab) 30 mg NG QAM [facility] Stop: 08/18/21 08:59 Last Admin: 07/20/21 07:55 Dose: Not Given Documented by: [id number] Admin: 07/19/21 09:10 Dose: 30 mg Documented by: [id number] Sennosides (Sennosides 8.8 Mg/5 Ml Udc) 17.2 mg PO HS [facility] Stop: 08/17/21 20:59 Last Admin: 07/19/21 19:14 Dose: Not Given Documented by: [id number] Admin: 07/18/21 22:05 Dose: Not Given Documented by: [id number] Discontinued Medications Dobutamine HCl/Dextrose (Dobutamine 500mg / 250ml D5w) Confirm Administered Dose 500 mg IV .STK-MED ONE Stop: 07/18/21 17:56 Last Admin: 07/18/21 18:31 Dose: Not Given Documented by: [id number] Epinephrine HCl (Epinephrine Inj 1 Mg/Ml Amp) Confirm Administered Dose 4 mg .ROUTE .STK-MED ONE Stop: 07/18/21 14:39 Last Admin: 07/18/21 17:44 Dose: Not Given Documented by: [id number] Epinephrine HCl (Epinephrine Inj 1 Mg/Ml Amp) Confirm Administered Dose 1 mg .ROUTE .STK-[facility] ONE Stop: 07/18/21 14:41 Last Admin: 07/18/21 17:44 Dose: Not Given Documented by: [id number] Epinephrine HCl (Epinephrine Inj 1 Mg/Ml Amp) Confirm Administered Dose 3 mg .ROUTE .[facility] Stop: 07/18/21 14:41 Last Admin: 07/18/21 17:44 Dose: Not Given Documented by: [id number] Epinephrine HCl (Epinephrine Inj 1 Mg/Ml Amp) Confirm Administered Dose 2 mg .ROUTE .[facility] Stop: 07/18/21 15:13 Last Admin: 07/18/21 17:44 Dose: Not Given Documented by: [id number] Fentanyl Citrate (Fentanyl Citrate 100 Mcg/2 Ml Vial) Confirm Administered Dose 100 mcg .ROUTE .[facility] Stop: 07/18/21 14:08 Last Admin: 07/18/21 17:43 Dose: Not Given Documented by: [id number] Heparin Sodium (Porcine) (Heparin (Porcine) 1000 Unit/Ml 10 Ml (Experience [employer]er Use Only)) Confirm Administered Dose 10,000 units .ROUTE .[facility] Stop: 07/18/21 14:08 Last Admin: 07/18/21 17:43 Dose: Not Given Documented by: [id number] Heparin Sodium/Sodium Chloride (Heparin In Nss Infusion 1000 Unit/500 Ml (2 U/Ml) Bag) Confirm Administered Dose 3,000 units IV .[facility] Stop: 07/18/21 14:09 Last Admin: 07/18/21 17:43 Dose: Not Given Documented by: [id number] Sodium Chloride (Nss 1000ml) 1,000 mls @ 999 mls/hr IV .Q1H1M [facility] Stop: 07/18/21 13:49 Last Infusion: 07/18/21 13:51 Dose: 0 mls/hr Documented by: [id number] Admin: 07/18/21 12:50 Dose: 999 mls/hr Documented by: [id number] Sodium Chloride (Nss) 500 mls @ 125 mls/hr IV .Q4H [facility] Stop: 07/19/21 00:14 Last Admin: 07/18/21 21:03 Dose: Not Given Documented by: [id number] Admin: 07/18/21 18:30 Dose: Not Given Documented by: [id number] Sodium Chloride (Nss 1000ml) 1,000 mls @ 100 mls/hr IV .Q10H [facility] Stop: 08/17/21 16:24 Last Infusion: 07/18/21 22:03 Dose: 0 mls/hr Documented by: [id number] Admin: 07/18/21 17:45 Dose: 100 mls/hr Documented by: [id number] Dobutamine HCl/Dextrose (Dobutamine / D5w) 500 mg in 250 mls @ 14.115 mls/hr IV .[id number] MICHEL[facility]; Protocol Stop: 08/17/21 17:59 Last Admin: 07/19/21 15:13 Dose: Not Given Documented by: [id number] Admin: 07/19/21 15:11 Dose: Not Given Documented by: [id number] Potassium Chloride 40 meq/ (Sodium Chloride) 1,020 mls @ 100 mls/hr IV .[id number] [facility] Stop: 08/17/21 21:29 Last Infusion: 07/19/21 03:43 Dose: 0 mls/hr Documented by: [id number] Admin: 07/18/21 21:40 Dose: 100 mls/hr Documented by: [id number] Potassium Chloride (K Moncho / Wtr) 20 meq in 100 mls @ 50 mls/hr IV Q2H [facility]HEL[facility]; Protocol Stop: 07/19/21 03:29 Last Infusion: 07/19/21 03:43 Dose: 0 mls/hr Documented by: [id number] Admin: 07/19/21 00:57 Dose: 50 mls/hr Documented by: [id number] Infusion: 07/19/21 00:57 Dose: 50 mls/hr Documented by: [id number] Admin: 07/18/21 23:53 Dose: 50 mls/hr Documented by: [id number] Infusion: 07/18/21 23:40 Dose: 50 mls/hr Documented by: [id number] Admin: 07/18/21 21:40 Dose: 50 mls/hr Documented by: [id number] Sodium Bicarbonate 75 meq/ (Sodium Chloride) 1,075 mls @ 125 mls/hr IV .Q8H36M [facility] Stop: 08/18/21 03:14 Last Admin: 07/19/21 07:43 Dose: Not Given Documented by: [id number] Potassium Chloride (K Moncho / Wtr) 20 meq in 100 mls @ 50 mls/hr IV Q2H [facility]; Protocol Stop: 07/19/21 07:14 Last Infusion: 07/19/21 07:43 Dose: 0 mls/hr Documented by: [id number] Admin: 07/19/21 05:36 Dose: 50 mls/hr Documented by: [id number] Infusion: 07/19/21 05:30 Dose: 50 mls/hr Documented by: [id number] Admin: 07/19/21 03:30 Dose: 50 mls/hr Documented by: [id number] Sodium Bicarbonate 75 meq/Potassium Chloride 40 meq/Sodium Chloride 1,095 mls @ 125 mls/hr IV .Q8H46M [facility] Stop: 08/18/21 03:14 Last Infusion: 07/19/21 21:20 Dose: 0 mls/hr Documented by: [id number] Admin: 07/19/21 12:16 Dose: 125 mls/hr Documented by: [id number] Infusion: 07/19/21 12:16 Dose: 125 mls/hr Documented by: [id number] Admin: 07/19/21 03:30 Dose: 125 mls/hr Documented by: [id number] Potassium Phosphate 15 mmol/ (Sodium Chloride) 255 mls @ 88 mls/hr IV ONE ONE Stop: 07/19/21 18:53 Last Infusion: 07/19/21 19:35 Dose: 0 mls/hr Documented by: [id number] Admin: 07/19/21 16:36 Dose: 88 mls/hr Documented by: [id number] Sodium Bicarbonate 75 meq/Potassium Acetate 40 meq/Sodium Chloride 1,095 mls @ 125 mls/hr IV .Q8H46M [facility] Stop: 08/18/21 20:59 Last Admin: 07/20/21 05:38 Dose: 125 mls/hr Documented by: [id number] Infusion: 07/20/21 05:38 Dose: 125 mls/hr Documented by: [id number] Admin: 07/19/21 21:07 Dose: 125 mls/hr Documented by: [id number] Insulin Aspart (Insulin Aspart Per Unit) 9 units SC Q2H [facility] Stop: 08/17/21 19:59 Last Admin: 07/19/21 02:28 Dose: 9 units Documented by: [id number] Cosigned by: [id number] Admin: 07/19/21 00:40 Dose: 9 units Documented by: [id number] Cosigned by: [id number] Admin: 07/18/21 23:16 Dose: 9 units Documented by: [id number] Cosigned by: [id number] Admin: 07/18/21 21:02 Dose: 9 units Documented by: [id number] Cosigned by: [id number] Insulin Human Regular (Novolin-R Bolus From Bag) 5 units IV ONE ONE Stop: 07/19/21 03:31 Last Admin: 07/19/21 03:36 Dose: 5 units Documented by: [id number] Cosigned by: [id number] Lidocaine HCl (Lidocaine 2% Jelly 5 Ml Tube) Confirm Administered Dose 5 ml .ROUTE .STK-MED ONE Stop: 07/18/21 20:27 Last Admin: 07/18/21 21:03 Dose: 5 ml Documented by: [id number] Midazolam HCl (Midazolam Hcl 1 Mg/Ml 2ml Vial) Confirm Administered Dose 2 mg .ROUTE .STK-MED ONE Stop: 07/18/21 14:09 Last Admin: 07/18/21 17:43 Dose: Not Given Documented by: [id number] Nicardipine HCl (Nicardipine Hcl Inj 2.5 Mg/Ml 10 Ml Amp) Confirm Administered Dose 25 mg .ROUTE .STK-MED ONE Stop: 07/18/21 14:08 Last Admin: 07/18/21 17:43 Dose: Not Given Documented by: [id number] Nitroglycerin/Dextrose (Nitroglycerin/D5w 100mcg/Ml 20ml Syr) Confirm Administered Dose 2,000 mcg .ROUTE .STK-MED ONE Stop: 07/18/21 14:09 Last Admin: 07/18/21 17:43 Dose: Not Given Documented by: [id number] Norepinephrine Bitartrate (Norepinephrine/D5w 8 Mg/508 Ml) Confirm Administered Dose 8 mg IV .STK-MED ONE Stop: 07/18/21 17:54 Last Admin: 07/18/21 18:22 Dose: Not Given Documented by: [id number] Sodium Bicarbonate (Sodium Bicarb 8.4% Inj 50 Meq/50 Ml Syr) Confirm Administered Dose 100 meq IV .STK-MED ONE Stop: 07/18/21 17:54 Last Admin: 07/18/21 18:23 Dose: Not Given Documented by: [id number] Sodium Bicarbonate (Sodium Bicarb 8.4% Inj 50 Meq/50 Ml Syr) Confirm Administered Dose 50 meq IV .[employer] ONE Stop: 07/18/21 17:56 Last Admin: 07/18/21 18:23 Dose: Not Given Documented by: [id number] Sodium Bicarbonate (Sodium Bicarb 8.4% Inj 50 Meq/50 Ml Syr) 150 meq IV NOW STA Stop: 07/18/21 17:56 Last Admin: 07/18/21 18:00 Dose: 150 meq Documented by: [id number] Description This is a 21 electrode EEG with a single channel dedicated to limited EKG. The electrodes were placed in accordance with the International 10-20 system. The background rhythm consists of a mix of poorly organized, low amplitude alpha and theta frequencies. There is a symmetric frontal beta rhythm. Photic stimulation is unremarkable. There is no focal slowing. There is no burst suppression pattern. There are no epileptiform abnormalities. Interpretation Abnormal awake/drowsy EEG revealing a nonspecific encephalopathy. There is no evidence of subclinical seizure activity. [facility] EEG Procedure Codes Indication for Procedure (1) Cardiac arrest: (2) Encephalopathy: Neurology Neurology: [id number] EEG include record awake & drowsy
--- NOTE | 2021-07-20 13:14 | Hospitalist Progress Note ---
Date of Service July 20, 2021 Assessment & Plan (1) Cardiac arrest: Plan: Out of hospital cardiac arrest Patient was found unresponsive at home following a fall. Achieved ROSC following CPR. Underwent cardiac cath with clean coronaries Patient currently intubated ventilated in the ICU Cardiology service on consult. Hyporthermia protocol completed, patient has been rewarmed Still unresponsive (2) Facial laceration: Plan: Sustained following a fall Wound management (3) Fall (on) (from) other stairs and steps, initial encounter: Plan: Fell from the stairs at home (4) Closed fracture of C2 vertebra: Plan: Was found to have a closed C2 fracture and also multiple rib fractures. [facility] on consult. Continue neck collar, change to a more comfortable one (5) Ribs, multiple fractures: Plan: Multiple rib fractures following a fall No surgical indications for now. (6) Urinary retention: Plan: Post Magdaleno catheter insertion by urology. Patient continues to make good urine. Plan: Patient still on responsive despite not being on sedation, even after rewarming we dont palliative services. I spoke with someone from [facility]. Since the patient wishes to donate his organs. Admission and Anticipated Discharge Date Admission Date: July 18, 2021 Subjective patient is intubated and ventilated Review of Systems Review of Systems: unable to obtain, intubated Physical Exam Physical Exam: The patient is intubated and ventilated HEENT--PERRL, EOMI, mucous membranes and oropharynx mildly dry Neck-- No JVD. No bruits. Thyroid normal, trachea midline, no adenopathy. Heart--normal S1 and S2. No murmurs, rubs or gallops. Lungs--Reduced air entry on auscultation Abdomen--normal bowel sounds and soft. Extremities--no cyanosis or clubbing. No edema. Dermatologic--normal skin turgor, normal color, no abnormal lymph nodes, no rash. Neurologic--unable to assess Psychiatric--unable to assess Results & Data Results & Data ([facility]) Vital Signs (Past 12 Hours) Vital Signs Temp Temp Pulse Resp BP BP BP 07/20/21 11:21 88 20 07/20/21 09:00 98.2 F 93 H 20 07/20/21 08:30 98.2 F 88 20 07/20/21 08:00 98.2 F 93 H 18 07/20/21 07:30 98.1 F 94 H 18 07/20/21 07:28 92 H 20 07/20/21 07:00 98.8 F 92 H 20 07/20/21 06:30 98.8 F 88 20 144/59 H 07/20/21 06:00 98.8 F 90 20 141/61 H 07/20/21 05:00 98.8 F 95 H 22 149/58 H 138/48 L 07/20/21 04:00 98.2 F 91 H 22 110/51 L 134/49 L 07/20/21 03:15 20 07/20/21 03:00 97.9 F 85 22 131/50 L 101/36 L 07/20/21 02:55 84 22 07/20/21 02:00 97.5 F L 85 22 134/55 L 138/45 L Pulse Ox 07/20/21 11:21 07/20/21 09:00 91 07/20/21 08:30 90 07/20/21 08:00 90 07/20/21 07:30 92 07/20/21 07:28 92 07/20/21 07:00 92 07/20/21 06:30 93 07/20/21 06:00 93 07/20/21 05:00 94 07/20/21 04:00 96 07/20/21 03:15 07/20/21 03:00 96 07/20/21 02:55 96 07/20/21 02:00 99 PG Care Time/CCT Total # of Minutes Spent Total Time Spent with Patient: Total time spent is greater than 50% in coordination of care (as documented) at patient's floor/unit and/or counseling patient: Coding Level of Care Code 37772 Subseq Hosp Care Lvl 2 Diagnoses Cardiac arrest I46.9 Facial laceration S01.81XA Fall (on) (from) other stairs and steps, initial encounter W10.8XXA Closed fracture of C2 vertebra S12.100A Ribs, multiple fractures S22.49XA Urinary retention R33.9 Time Spent (min) 35
[2021-07-20 13:34] LABS: Hepatitis B Surf Ag Rflx Conf Neg (Neg)
--- NOTE | 2021-07-20 13:50 | Pharmacy Report ---
Pharmacy Glycemic Short Note 2 - Date of Service July 20, 2021 - Glycemic Short BSG Results (Last 24 hours): 07/19/21 07/19/21 07/19/21 13:57 14:24 15:00 Glucose 302 H* POC Glucose (other) 338 H 278 H 07/19/21 07/19/21 07/19/21 16:01 17:03 18:03 Glucose POC Glucose (other) 224 H 173 H 116 H 07/19/21 07/19/21 07/19/21 18:45 19:31 20:13 Glucose POC Glucose (other) 99 80 72 07/19/21 07/19/21 07/19/21 20:25 20:53 21:59 Glucose 68 L POC Glucose (other) 74 79 07/20/21 07/20/21 07/20/21 00:07 02:02 02:33 Glucose 132 H POC Glucose (other) 111 H 146 H 07/20/21 07/20/21 07/20/21 03:12 04:12 06:14 Glucose POC Glucose (other) 115 H 104 H 163 H 07/20/21 07/20/21 07/20/21 07:51 08:22 09:49 Glucose 153 H POC Glucose (other) 158 H 148 H 07/20/21 07/20/21 11:42 13:07 Glucose POC Glucose (other) 157 H 159 H OUTPATIENT ANTIDIABETIC REGIMEN: * n/a ASSESSMENT: 07/20: * Patient completed therapeutic hypothermia protocol. Insulin infusion still running ~1,6 units/hr. Patient requiring epi and vaso drips. It was determined at ICU rounds that the insulin infusion should continue for now due to acute clinical status and concomitant vasopressors. 07/19 * Mr Gan was admitted yesterday after suffering an out of hospital cardiac arrest. * He underwent therapeutic hypothermia and will begin the rewarming process this afternoon. * Pt is currently intubated/ventilated in the ICU. * BSGs have been elevated since admission and patient has been managed on an IV insulin infusion. Despite very high insulin gtt rates, BSGs remain high. Pt has received some aggressive potassium replacement, but will require additional supplementation while IV insulin infuses. * Prognosis appears poor. PLAN FOR INPATIENT GLYCEMIC CONTROL: * Hold outpatient oral diabetes medications * IV insulin infusion per protocol
[2021-07-20 14:02] LABS: Hepatitis C IgG 13Yrs+Old_Rflx Neg (Neg)
--- NOTE | 2021-07-20 14:24 | Critical Care Progress Note ---
Date of Service July 20, 2021 Assessment & Plan (1) Cardiac arrest: Plan: Reason Critically Ill: 80-year-old male with significant past medical history for coronary artery disease on antiplatelet and Plavix medication who presents after cardiac arrest and fall PLAN: Neuro: Encephalopathy -Patient has not received any sedatives or analgesics -EEG with Poorly organized low amplitude alpha and theta frequencies. No epileptiform act ivity seen. We will consult neuro for brain evaluation. Patient is not overbreathing the ventilator. May need to proceed with apnea testing. C2 fracture -Maintain C-spine precautions and c-collar at all times. Appreciate Ortho input. Resp: Respiratory failure -Decreased and optimized ventilator settings Anterior rib fractures -No pneumothorax seen Bilateral pleural effusions -Likely reactionary to rib fractures secondary to CPR CV: Coronary artery disease Cardiac arrest -No intervene of the lesion discovered Fluids/Renal: Acute metabolic acidosis -improving. Patient with hypernatremia. Half-normal saline initiated. ID: Afebrile - No indication for antibiotics at this time GI/Nutrition: Unable to place OG tube at this time -Continue n.p.o. status Heme: Probable baseline anemia DVT prophylaxis: 30 mg Lovenox daily Endocrine: ICU hyperglycemia protocol Musculoskeletal: C2 fracture type III -Orthopedic spine consult -Spine precautions -Cervical collar at all times Vascular access: Left subclavian CVL, right femoral arterial line Code Status: Conditional code no CPR Disposition: Critical Care Unit CRITICAL CARE TIME - I have personally spent 38 minutes of critical care time in the direct management of this patient. This is a life/limb threatening event. This includes time spent evaluating patient, direct bedside care, chart review, placing orders, interpretation of diagnostic studies, discussion with consultants, patient, and family members, as well as other required patient management activities. This time is exclusive of all separately billable procedures, and teaching time and separate from and in addition to any other critical care service time. (2) CAD (coronary artery disease): (3) Facial laceration: (4) Fall (on) (from) other stairs and steps, initial encounter: (5) Closed fracture of C2 vertebra: (6) Ribs, multiple fractures: (7) Brain anoxic injury: Admission and Anticipated Discharge Date Admission Date: July 18, 2021 Subjective Patient seen and examined. Unresponsive to commands. Remains on low-dose epinephrine and vasopressin drips. Also on insulin drip. Minimal vent settings . Review of Systems Review of Systems: Unobtainable due to reduced consciousness Physical Exam Physical Exam: General: Alert. nontoxic. GCS 3 T Skin: Warm, dry, laceration repair clean dry intact Head: Hematoma right supraorbital area Ears, nose, mouth and throat: airway patent obscured by endotracheal tube Cardiovascular: Normal peripheral perfusion Respiratory: Ventilator settings reviewed Gastrointestinal: Non distended Musculoskeletal: No deformity Neuro: Nonresponsive to commands. No corneal reflex and no gag reflex present. Results & Data Results & Data ([facility]) Vital Signs (Past 12 Hours) Vital Signs Temp Temp Pulse Resp BP BP BP 07/20/21 11:21 88 20 07/20/21 09:00 36.8 C 93 H 20 07/20/21 08:30 36.8 C 88 20 07/20/21 08:00 36.8 C 93 H 18 07/20/21 07:30 36.7 C 94 H 18 07/20/21 07:28 92 H 20 07/20/21 07:00 37.1 C 92 H 20 07/20/21 06:30 37.1 C 88 20 144/59 H 07/20/21 06:00 37.1 C 90 20 141/61 H 07/20/21 05:00 37.1 C 95 H 22 149/58 H 138/48 L 07/20/21 04:00 36.8 C 91 H 22 110/51 L 134/49 L 07/20/21 03:15 20 07/20/21 03:00 36.6 C 85 22 131/50 L 101/36 L 07/20/21 02:55 84 22 Pulse Ox 07/20/21 11:21 07/20/21 09:00 91 07/20/21 08:30 90 07/20/21 08:00 90 07/20/21 07:30 92 07/20/21 07:28 92 07/20/21 07:00 92 07/20/21 06:30 93 07/20/21 06:00 93 07/20/21 05:00 94 07/20/21 04:00 96 07/20/21 03:15 07/20/21 03:00 96 07/20/21 02:55 96 vital signs, labs and imaging reviewed Coding Level of Care Code Critical Care 1st 30-74 mins Diagnoses Cardiac arrest I46.9 CAD (coronary artery disease) I25.10 Facial laceration S01.81XA Fall (on) (from) other stairs and steps, initial encounter W10.8XXA Closed fracture of C2 vertebra S12.100A Ribs, multiple fractures S22.49XA Brain anoxic injury G93.1 Time Spent (min) 38
[2021-07-20 14:26] LABS: Hematocrit (blood only) 38.2 % (42-52); Hemoglobin 12.5 g/dL (14.0-18.0); Mean Corpuscular Hemoglobin 30.7 pg (25-34); Mean Corpuscular Hgb Conc 32.7 g/dL (32-36); Mean Corpuscular Volume 93.9 fL (80-100); Mean Platelet Volume 10.5 fL (7.4-10.4); Platelet Count 166 K/uL (130-400); RDW Coefficient of Variation 16.4 % (11.5-14.5); RDW Standard Deviation 56.8 fL (36.4-46.3); Red Blood Count 4.07 M/uL (4.7-6.1); White Blood Count 19.76 K/uL (4.8-10.8)
[2021-07-20 14:42] LABS: Basophils # (auto) 0.01 K/uL (0-0.2); Basophils % (auto) 0.1 %; Immature Granulocytes # (auto) 0.33 K/uL (0.00-0.02); Immature Granulocytes % (auto) 1.7 %; Lymphocytes # (auto) 0.66 K/uL (1.2-3.4); Lymphocytes % (auto) 3.3 %; Monocytes # (auto) 1.17 K/uL (0.11-0.59); Monocytes % (auto) 5.9 %; Neutrophils # (auto) 17.59 K/uL (1.4-6.5)
[2021-07-20 14:50] LABS: INR 1.1 (0.9-1.1); Partial Thromboplastin Time 25.4 Seconds (21.0-31.0); Prothrombin Time 10.9 Seconds (9.0-12.0)
[2021-07-20 15:01] LABS: BUN Creatinine Ratio 26.9 (10-20); Calcium 7.8 mg/dl (8.5-10.1); Creatinine Clr Calc Pharmacy 41.1 ml/min; Est GFR (African American) 48.2 ml/min; Est GFR (Non-African American) 41.6 ml/min; Magnesium 2.4 mg/dl (1.7-2.4); Phosphorus 4.1 mg/dl (2.5-4.9); Potassium 4.4 mmol/L (3.5-5.1)
[2021-07-20 15:34] LABS: Albumin Globulin Ratio 1.3 (0.9-2); BUN Creatinine Ratio 26.1 (10-20); Bilirubin,Total 0.4 mg/dl (0.2-1.0); Creatinine Clr Calc Pharmacy 40.9 ml/min; Est GFR (African American) 47.9 ml/min; Est GFR (Non-African American) 41.3 ml/min; Globulin 2.3 gm/dl (2.5-4.0); Magnesium 2.4 mg/dl (1.7-2.4); Phosphorus 4.1 mg/dl (2.5-4.9); Potassium 4.5 mmol/L (3.5-5.1); Total Protein 5.3 gm/dl (6.0-8.3)
[2021-07-20 16:21] LABS: iSTAT Art Bld Gas pCO2 Correct 41 mmHg (35-46); iSTAT Art Bld Gas pH Corrected 7.419 (7.35-7.45); iSTAT Arterial Blood Gas HCO3 27 meg/L (19-24); iSTAT Arterial Blood Gas pCO2 41 mmHg (35-46); iSTAT Arterial Blood Gas pH 7.42 (7.35-7.45); iSTAT Arterial Blood Gas pO2 69 mmHg (80-95); iSTAT Arterial Blood Gas pO2 C 69; iSTAT Carbon Dioxide 28 mmol/L (24-31); iSTAT FiO2 30 %; iSTAT Hematocrit 33 % (42-52); iSTAT Hemoglobin 11.2 g/dl (14.0-18.0); iSTAT Potassium 4.4 mmol/L (3.3-5.0); iSTAT Site Art Line; iSTAT Sodium 150 mmol/L (135-144)
[2021-07-20] MEDS: DOBUTamine / D5W 500 MG/250 ML BAG IV SCH (20:06)
[2021-07-20] MEDS: ENOXAPARIN INJ 30 MG/0.3 ML SYR SQ SCH (20:09)
[2021-07-20] MEDS: SENNOSIDES 8.8 MG/5 ML UDC PO SCH (20:10)
[2021-07-20 23:59] LABS: Albumin Level 2.9 gm/dl (3.4-5.0); BUN Creatinine Ratio 28.9 (10-20); Bilirubin Direct 0.1 mg/dl (0-0.2); Bilirubin,Total 0.5 mg/dl (0.2-1.0); Calcium 7.7 mg/dl (8.5-10.1); Creatinine Clr Calc Pharmacy 45.2 ml/min; Est GFR (African American) 54.1 ml/min; Est GFR (Non-African American) 46.6 ml/min; Magnesium 2.3 mg/dl (1.7-2.4); Phosphorus 4.5 mg/dl (2.5-4.9); Potassium 4.4 mmol/L (3.5-5.1); Total Protein 5.2 gm/dl (6.0-8.3)
[2021-07-21] MEDS: INSULIN REGULAR 250 UNITS in SODIUM CHLORIDE 0.9% 247.5 ML IV SCH (02:06)
[2021-07-21] MEDS: Standard 16mcg/mL; 4 MG in 250 mL for HYPOTENSION IV SCH ×6 (02:07→09:48)
[2021-07-21] MEDS: VASOPRESSIN 20 UNITS in 0.9 % SODIUM CHLORIDE 100 ML IV SCH (03:30)
[2021-07-21 05:01] LABS: Hemoglobin 11.9 g/dL (14.0-18.0); Mean Corpuscular Hemoglobin 31.2 pg (25-34); Mean Corpuscular Hgb Conc 32.2 g/dL (32-36); Mean Corpuscular Volume 96.9 fL (80-100); Mean Platelet Volume 10.7 fL (7.4-10.4); Platelet Count 155 K/uL (130-400); RDW Coefficient of Variation 17.2 % (11.5-14.5); RDW Standard Deviation 61.6 fL (36.4-46.3); Red Blood Count 3.82 M/uL (4.7-6.1); White Blood Count 17.12 K/uL (4.8-10.8)
[2021-07-21 05:22] LABS: BUN Creatinine Ratio 29.9 (10-20); Calcium 7.7 mg/dl (8.5-10.1); Creatinine Clr Calc Pharmacy 47.9 ml/min; Magnesium 2.4 mg/dl (1.7-2.4); Phosphorus 4.2 mg/dl (2.5-4.9); Potassium 4.3 mmol/L (3.5-5.1)
[2021-07-21 05:38] LABS: Basophils # (auto) 0.01 K/uL (0-0.2); Basophils % (auto) 0.1 %; Immature Granulocytes # (auto) 0.25 K/uL (0.00-0.02); Immature Granulocytes % (auto) 1.5 %; Lymphocytes # (auto) 0.74 K/uL (1.2-3.4); Lymphocytes % (auto) 4.3 %; Monocytes # (auto) 1.06 K/uL (0.11-0.59); Monocytes % (auto) 6.2 %; Neutrophils # (auto) 15.06 K/uL (1.4-6.5); Neutrophils % (auto) 87.9 %; RBC Morphology Unremarkable
[2021-07-21 06:17] LABS: iSTAT Art Bld Gas pCO2 Correct 40 mmHg (35-46); iSTAT Arterial Blood Gas HCO3 25 meg/L (19-24); iSTAT Arterial Blood Gas pCO2 41 mmHg (35-46); iSTAT Arterial Blood Gas pH 7.39 (7.35-7.45); iSTAT Arterial Blood Gas pO2 66 mmHg (80-95); iSTAT Arterial Blood Gas pO2 C 63; iSTAT Carbon Dioxide 26 mmol/L (24-31); iSTAT FiO2 30 %; iSTAT Hematocrit 33 % (42-52); iSTAT Hemoglobin 11.2 g/dl (14.0-18.0); iSTAT Potassium 4.3 mmol/L (3.3-5.0); iSTAT Site Art Line; iSTAT Sodium 150 mmol/L (135-144)
[2021-07-21] MEDS: INSULIN ASPART 100 UNITS/ML 3 ML PEN SC SCH (07:43)
[2021-07-21 07:55] LABS: iSTAT Arterial Blood Gas HCO3 25 meg/L (19-24); iSTAT Arterial Blood Gas pCO2 40 mmHg (35-46); iSTAT Arterial Blood Gas pH 7.39 (7.35-7.45); iSTAT Arterial Blood Gas pO2 81 mmHg (80-95); iSTAT Carbon Dioxide 26 mmol/L (24-31); iSTAT FiO2 40 %; iSTAT Site Art Line
[2021-07-21 07:58] LABS: Appearance Urine Cloudy (Clear); Bilirubin Urine Negative (Negative); Blood Urine 3+ (Negative); Color Urine Yellow; Glucose Urine UA 3+ (Negative); Ketones Urine 2+ (Negative); Leukocyte Esterase Urine Negative (Negative); Nitrite Urine Positive (Negative); Protein Urine 1+ (Negative); Specific Gravity Urine 1.024 (1.000-1.030); Urobilinogen Urine Negative (Negative)
[2021-07-21 08:08] LABS: iSTAT Arterial Blood Gas HCO3 27 meg/L (19-24); iSTAT Arterial Blood Gas pCO2 46 mmHg (35-46); iSTAT Arterial Blood Gas pH 7.37 (7.35-7.45); iSTAT Arterial Blood Gas pO2 262 mmHg (80-95); iSTAT Carbon Dioxide 28 mmol/L (24-31); iSTAT FiO2 100 %; iSTAT Site Art Line
--- NOTE | 2021-07-21 08:13 | XRay Report ---
SINGLE VIEW CHEST CLINICAL HISTORY: Respiratory failure. FINDINGS: An AP, portable, semierect chest radiograph is compared to study dated 07/20/2021 and correl ated with chest CT dated 07/18/2021. The examination is degraded by portable technique and patient rot ation. An endotracheal tube and a left subclavian central venous catheter are unchanged in position t he pacing lead projects over the base of the heart. The heart is enlarged noting atherosclerotic calc ification of the thoracic aorta. The pulmonary vasculature is noncongested. Coronary artery stents ar e suggested. There is a layering right pleural effusion with right basilar consolidation. No pneumoth orax is seen. The skeletal structures are osteopenic. The bony thorax is grossly intact. IMPRESSION: 1. Stable lines and tubes. 2. Cardiomegaly without radiographic evidence of congestive failure. 3. Layering right pleural effusion with right basilar consolidation. ACT 112: Negative or not required by law. Electronically signed by: Ángel Bassett M.D. 07/21/2021 8:12 AM
[2021-07-21 08:30] LABS: iSTAT Arterial Blood Gas HCO3 29 meg/L (19-24); iSTAT Arterial Blood Gas pCO2 73 mmHg (35-46); iSTAT Arterial Blood Gas pH 7.21 (7.35-7.45); iSTAT Arterial Blood Gas pO2 181 mmHg (80-95); iSTAT Carbon Dioxide 31 mmol/L (24-31); iSTAT Site Art Line
[2021-07-21 08:38] LABS: Mucus Urine Present (None Prsent)
[2021-07-21 08:39] LABS: Amorphous Sediment Urine Present (None Prsent); Bacteria Urine Automated 1+ (Negative)
--- NOTE | 2021-07-21 08:54 | Communication Note ---
Date of Service: July 21, 2021 Brain exam: - Pupillary light reflex was absent - Corneal reflex was absent - Bulbar reflex including cough/gag were absent with tracheal suction - Cold caloric reflexes (oculovestibular reflex) absent - Oculocephalic reflex was unable to be performed as the patient is currently in a c-collar - For the apnea test, the patient was disconnected from the ventilator and preoxygenated with 100% oxygen via the endotracheal tube. A pre-apnea testing ABG was performed which demonstrated eucapnia. Patient was disconnected from the ventilator for 8 minutes. He was hemodynamically stable on stable infusions of epinephrine and vasopressin with stable saturations. No chest rise or breath initiation was noted on physical exam during the duration of the apnea test. The procedure was then aborted and the patient was placed back on the ventilator. Prior to placing the patient back on a ventilator, an ABG was drawn which did demonstrate an increase from his baseline PCO2 of greater than 20. Time of 8:35 AM as pronounced by myself. Coding Level of Care Code None
--- NOTE | 2021-07-21 09:11 | Neurology Consultation ---
Date of Consultation July 21, 2021 Assessment & Plan (1) Brain anoxic injury: (2) Closed fracture of C2 vertebra: Severe anoxic brain injury occurring in the context of cardiac arrest, further complicated by nondisplaced C2 fracture after fall at home. No evidence of cortical or brainstem activity after prolonged observation period. Essentially flat/very low amplitude EEG with disorganized background electrical rhythm. Clinical diagnostic criteria for brain are met. Extremely poor prognosis for neurologic recovery. Discussed with morning caregiver at bedside. The nondisplaced C2 fracture does not appear to be causing any spinal cord compression. Patient unable to have MRI. No further neurologic testing is needed at this time. History of Present Illness Reason for Consultation: Brain Requesting Physician: Gonzales Aceves MD Attending Physician: Jarvis Villegas MD History of Present Illness The patient is a 80-year-old male who presented to the [facility] on July 18 after he was found unresponsive. He had apparently fallen from the stairs at home. Was found with no pulse. CPR with the help of a neighbor. Per EMS, patient remained in asystole, treated with epinephrine, additional CPR, eventual return of spontaneous circulation. Down for at least [address] of the head negative for hemorrhage, mass-effect, or acute ischemia. There was a right frontal scalp hematoma. CT of the cervical spine revealed a nondisplaced fracture through the base of the odontoid process. Patient underwent coronary angiography, no evidence of new or obstructive coronary artery disease. Patient completed hypothermia protocol. Remained unresponsive off sedation. No brainstem reflexes. Not breathing over the ventilator. EEG completed yesterday revealed a mix of poorly organized low amplitude alpha and theta frequencies consistent with encephalopathy, no subclinical seizure activity. Patient failed apnea testing, discussed with morning caregiver this morning. Failed cold calorics. No gag reflex. Allergies Allergy/AdvReac Type Severity Reaction Status Date / Time No Known Allergies Allergy Unverified 07/18/21 16:14 Home Medications Medication Instructions Recorded Confirmed Type aspirin 07/18/21 History clopidogrel 75 mg tablet (Plavix) 75 mg 07/18/21 History Patient History Medical History (Updated 07/20/21 @ 14:23 by Gonzales Aceves MD) Brain anoxic injury CAD (coronary artery disease) Surgical History Stented coronary artery Social History Smoking Status: Never smoker Hx Alcohol Use: No Hx Substance Use: No Preferred Language: Welsh Communication Ability: Effective Hearing Ability: Use of Hearing Aid [place] Required: No Beliefs That Will Affect Care: None marital status: Current Living Situation: Spouse current occupational status: retired How many Children do You have: 2 Feels Safe at Home: Yes Assistive Devices: Oxygen - Continuous Review of Systems Review of Systems: Unobtainable due to reduced consciousness Exam (Neuro) Physical Exam: Patient remains unresponsive, on life support, in the ICU, mechanically ventilated. He does not respond to voice, tactile, or noxious stimulation. Patient does not withdraw to noxious stimulation of any limb. Pupils are 2 mm, equal, round, nonreactive. There is no gaze preference. There is no nystagmus. Corneal reflexes, gag, and cold calorics cannot be elicited. There are no spontaneous movements of the limbs. Tone is diffusely flaccid. No posturing observed. Deep tendon reflexes are diffusely absent. Plantar responses silent. Carotid pulses normal, no bruits to auscultation. Ophthalmoscopic examination cannot be completed due to poor patient cooperation. Other aspects of neurological examination such as a full cognitive assessment, cranial nerve, and motor evaluation cannot be completed due to patient's current neurologic status. Results & Data ([facility]) Vital Signs (Past 12 Hours) Vital Signs Temp Pulse Resp BP Pulse Ox 07/21/21 08:54 76 07/21/21 06:49 76 14 96 07/21/21 06:15 36.5 C 78 14 93 07/21/21 06:00 36.5 C 80 14 143/64 H 93 07/21/21 05:45 36.6 C 75 14 93 07/21/21 05:30 36.6 C 71 12 144/60 H 93 07/21/21 05:15 36.6 C 75 14 93 07/21/21 05:00 36.6 C 81 14 141/61 H 95 07/21/21 04:45 36.6 C 75 14 94 07/21/21 04:30 36.6 C 76 12 93 07/21/21 04:15 36.6 C 76 12 94 07/21/21 04:00 36.6 C 78 12 94 07/21/21 03:45 36.6 C 78 12 93 07/21/21 03:42 77 14 93 07/21/21 03:30 36.7 C 77 14 140/57 L 94 07/21/21 03:15 36.7 C 75 14 94 07/21/21 03:00 36.7 C 78 12 94 07/21/21 02:45 36.7 C 81 14 94 07/21/21 02:30 36.7 C 77 14 93 07/21/21 02:15 36.7 C 82 14 94 07/21/21 02:00 36.7 C 78 14 148/56 H 94 07/21/21 01:45 36.7 C 78 14 94 07/21/21 01:30 36.8 C 78 14 143/58 H 94 07/21/21 01:15 36.8 C 81 14 93 07/21/21 01:00 36.8 C 81 14 94 07/21/21 00:45 36.8 C 78 14 94 07/21/21 00:30 36.8 C 79 14 93 07/21/21 00:15 36.8 C 82 14 93 07/21/21 00:00 36.8 C 83 14 94 07/20/21 23:45 36.9 C 78 14 93 07/20/21 23:30 36.9 C 87 14 147/62 H 93 07/20/21 23:16 78 14 93 07/20/21 23:15 36.9 C 82 14 93 07/20/21 23:00 36.9 C 81 14 138/58 L 93 07/20/21 22:45 36.9 C 83 14 94 07/20/21 22:38 86 07/20/21 22:30 36.9 C 81 14 93 07/20/21 22:15 37.0 C 85 12 94 07/20/21 22:00 37.0 C 85 14 93 07/20/21 21:45 37.0 C 84 14 94 07/20/21 21:30 37.0 C 84 12 93 07/20/21 21:15 37.0 C 85 14 93 Laboratory Results WBC 17.12, hemoglobin 11.9, hematocrit 37.0, platelet count 155, sodium 150, potassium 4.3, BUN 40, creatinine 1.34, calcium 7.7, magnesium 2.4, AST 136, ALT [address] of the head and cervical spine are as described in the history of present illness. I reviewed the images as well as the radiologist's interpretation of these tests and agree. EEG is as described in the history of present illness. An electrocardiogram reveals a normal sinus rhythm, right bundle branch block, left anterior fascicular block. Coding Level of Care Code 13384 Initial Inpt Care Lvl 3 Diagnoses Brain anoxic injury G93.1 Closed fracture of C2 vertebra S12.100A
[2021-07-21] MEDS: LANSOPRAZOLE 30 MG SOLTAB NG SCH (09:48)
[2021-07-21 10:41] LABS: iSTAT Creatinine 1.4 mg/dl (0.6-1.3); iSTAT Hemoglobin 13.6 g/dl (14.0-18.0); iSTAT Ionized Calcium 1.34 mmol/l (1.12-1.32); iSTAT Potassium 3.8 mmol/L (3.3-5.0)
--- NOTE | 2021-07-21 11:36 | Discharge Summary ---
Date of Service July 21, 2021 Admission HPI Per Admitting Provider 80 yo male is intubated after sustainging a fall from stair case. heard the fall and found patient to have no pulse, called for help and began CPR with the help of the neighbor. Once EMS arrived, patient remained in asystole, and CPR was continued and patient required 2 rounds of epinephrine. Patient was then found to have PEA, and then had a return of spontaneous circulation. When patient arrived to the ED, patient was bradycardic and then loss his pulse. Reuired CPR and another dose of EP. Patient remained unresponsive, without sedation. Consulted Cupola Tender, Head CT, and consulted cardio for Dr. Estevez. EEG was obtained yesterday, patient declared brain by a neurologist Principal Diagnosis Discharge Exam HEENT--pupils fixed and dilated Neck-- No JVD. No bruits. Thyroid normal, trachea midline, no adenopathy. Heart--normal S1 and S2. No murmurs, rubs or gallops. Lungs--no air entry Abdomen--no bowel sounds. Extremities--no cyanosis or clubbing. No edema. Dermatologic--normal skin turgor, normal color, no abnormal lymph nodes, no rash. Neurologic--unable to assess Psychiatric--unable to assess Discharge Data Allergies Allergy/AdvReac Type Severity Reaction Status Date / Time No Known Allergies Allergy Unverified 07/18/21 16:14 Consultations 07/18/21 14:25 Consult Orthopedic Surgery Routine 07/18/21 14:44 ED Decision to Admit Stat 07/18/21 14:45 Consult Cardiology Stat Consult Cupola Tender Stat 07/20/21 14:05 Consult Neurology Routine Procedures Performed Operation Date: 07/18/21 14:10 Actual Procedures p Cath, Left with Cors and Vent - Bismark Estevez MD s Cineradiography w/Routine Exam - Bismark Estevez MD s Central Line Insertion - Bismark Estevez MD s Ins/RemTemporary Transvenous Pacer - Bismark Estevez MD s Fluoro Central Venous Access - Bismark Estevez MD Operation Date: 07/21/21 07:00 <No data on this case meets the specified criteria> Ordered Studies 07/18/21 12:48 CT head/brain wo con Stat 07/18/21 13:17 CT cervical spine wo con Stat 07/18/21 13:32 CT facial bones wo con Stat 07/18/21 13:37 CT abd pelvis wo con Stat CT chest diagnostic wo con Stat 07/18/21 14:09 CL Cath Imgs for PACS use only Stat Hospital Course (1) Cardiac arrest: Out of hospital cardiac arrest Patient was found unresponsive at home following a fall. Achieved ROSC following CPR. Underwent cardiac cath with clean coronaries Patient currently intubated ventilated in the ICU Cardiology service on consult. Hyporthermia protocol completed, patient has been rewarmed Still unresponsive EEG was done, patient declared brain (2) Facial laceration: Sustained following a fall Wound management (3) Fall (on) (from) other stairs and steps, initial encounter: Fell from the stairs at home (4) Closed fracture of C2 vertebra: Was found to have a closed C2 fracture and also multiple rib fractures. [facility] on consult. Continue neck collar, change to a more comfortable one (5) Ribs, multiple fractures: Multiple rib fractures following a fall No surgical indications for now. (6) Urinary retention: Post Magdaleno catheter insertion by urology. Patient continues to make good urine. Patient was pronounced earlier today. Plan is for organ donation Total Time Total Time Spent Total Time Spent (In Minutes): 35 Discharge Plan Discharge Items Patient Disposition: Other Date/Time: 07/21/21 08:35 Coding Level of Care Code None Diagnoses Cardiac arrest I46.9 Facial laceration S01.81XA Fall (on) (from) other stairs and steps, initial encounter W10.8XXA Closed fracture of C2 vertebra S12.100A Ribs, multiple fractures S22.49XA Urinary retention R33.9 Time Spent (min) 35
[2021-07-21] MEDS ORDERED: DEXTROSE 50% 50 ML SYRINGE IV ONE (12:38)
[2021-07-21] MEDS ORDERED: ALBUTEROL 0.083% NEBU SOLN 3 ML VIAL ONE (23:23)
[2021-07-22] MEDS ORDERED: DOPamine 400MG / 250ML D5W IV ONE (11:07)
[2021-07-22] MEDS ORDERED: PHENYLEPHRINE HCL 10 MG/ML VIAL ONE (12:09)
[2021-07-22] MEDS ORDERED: ROCURONIUM BROMIDE 10 MG/ML 5 ML VIAL IV ONE ×9 (12:13→12:57)
[2021-07-22] MEDS ORDERED: HEPARIN SOD (PORCINE) 1000 UNIT/ML ONE (13:02)
--- NOTE | 2021-07-22 13:17 | Anesthesiology Progress Note ---
Date of Service July 22, 2021 Anesthesia Post Procedure Notes Mental Status: see notes below Notes: harvest patient - aorta clamped, liver taken, anesthesia portion completed
== END 2021-07-21 08:35 | disposition expired | DRG 260 ==
LOC: ED 12:34 → 1E 14:15 → SUATTDRO 14:25